=== PATIENT | female | born 1980 | race Caucasian/White ===

== ENCOUNTER 2017-04-03 07:55 | Inpatient (IN) | payer OTHER ==
[2017-04-03] MEDS ORDERED: ONDANSETRON 4 MG/2 ML VIAL IVP STA ×2 (08:25→10:09)
[2017-04-03] MEDS ORDERED: SODIUM CHLORIDE 0.9% 2,000 ML IV ONE (08:25)
--- NOTE | 2017-04-03 08:29 | ED Physician Documentation ---
PD HPI NVD - Stated complaint Stated Complaint: VOMITING - Chief complaint Chief Complaint: Abd Pain - History obtained from History obtained from: Patient, Family (Spouse) - History of Present Illness Timing - onset: Yesterday Timing - duration: Days (2) Timing - details: Still present Associated symptoms: No: Fever, Abdominal pain Contributing factors: Diabetes Similar symptoms before: Diagnosis (History of similar episodes with DKA. The last time was about one year ago.) - Additonal information Additional information: The patient is a 36-year-old insulin-dependent diabetic female who presents with 2 day history of vomiting and watery diarrhea, and complains of feeling dehydrated. She denies abdominal pain or dysuria. It is uncertain whether or not she has had fever. She reports history of similar symptoms with DKA, for which she has been hospitalized twice in the past. The last time was about 1 year ago. She uses an insulin pump. Her states that her blood sugar this morning was 188. No other family members are ill. There is been no recent travel or antibiotic therapy. Review of Systems Constitutional: reports: Fatigue Ears: denies: Tinnitus/ringing Nose: denies: Congestion Throat: denies: Sore throat Cardiac: denies: Chest pain / pressure Respiratory: denies: Dyspnea, Cough GI: reports: Nausea, Vomiting, Diarrhea. denies: Abdominal Pain : denies: Dysuria Skin: denies: Rash Musculoskeletal: denies: Back pain Neurologic: reports: Generalized weakness. denies: Focal weakness, Numbness, Headache PD PAST MEDICAL HISTORY - Past Medical History Past Medical History: Yes Endocrine/Autoimmune: Type 1 diabetes Other Past Medical History: retinal detachments - Past Surgical History Past Surgical History: Yes - Present Medications Home Medications: Ambulatory Orders Medication Instructions Recorded Confirmed Dorzolamide/Timolol Ophth Soln 2 drops OP BID 04/03/17 04/03/17 [Cosopt] Insulin Glargine [Lantus] 27 units SQ PRN PRN 04/03/17 04/03/17 Insulin Lispro [HumaLOG] 100 unit SQ DAILY 04/03/17 04/03/17 - Allergies Allergies/Adverse Reactions: Allergies Allergy/AdvReac Type Severity Reaction Status Date / Time No Known Drug Allergies Allergy Verified 04/03/17 08:03 - Living Situation Living Situation: reports: With family Living Arrangement: reports: At home - Social History Does the pt smoke?: No Smoking Status: Never smoker Does the pt drink ETOH?: No Does the pt have substance abuse?: No PD ED PE NORMAL - Vitals Vital signs reviewed: Yes (tachypneic) - General General: Alert and oriented X 3, Well developed/nourished, Other (Appears fatigued.) - HEENT HEENT: Atraumatic, PERRL, EOMI, Other (Sunken eyes, dry mucous membranes.) - Neck Neck: Supple, no meningeal sign, No adenopathy, No JVD - Cardiac Cardiac: RRR, No murmur - Respiratory Respiratory: No respiratory distress, Clear bilaterally - Abdomen Abdomen: Soft, Non tender, No organomegaly - Back Back: No CVA TTP - Derm Derm: No rash - Extremities Extremities: No edema, No calf tenderness / cord - Neuro Neuro: Alert and oriented X 3, No motor deficit, No sensory deficit PD ED PE EXPANDED - Rectal Rectal: Heme Occult Pos - QC + Results - Vitals Vitals: Vital Signs - 24 hr 04/03/17 04/03/17 04/03/17 08:02 09:53 12:13 Temperature 36.4 C L Heart Rate 66 95 100 Respiratory 28 H 12 Rate Blood Pressure 131/70 H 135/66 H O2 Saturation 100 100 99 04/03/17 04/03/17 15:21 16:42 Temperature Heart Rate 97 99 Respiratory 15 99 H Rate Blood Pressure 133/63 H 119/60 O2 Saturation 99 100 Oxygen O2 Source Room air - Labs Labs: Laboratory Tests 04/03/17 04/03/17 04/03/17 08:34 08:50 08:50 WBC 10.9 H RBC 4.37 Hgb 13.9 Hct 41.9 MCV 96.0 MCH 31.7 H MCHC 33.0 RDW 13.5 Plt Count 236 MPV 9.1 Neut # 8.7 H Lymph # 0.7 L [place] # 1.3 H Eos # 0.2 Baso # 0.0 Absolute Nucleated RBC 0.00 Nucleated RBCs 0.0 Sodium 140 Potassium 3.9 Chloride 107 Carbon Dioxide 20 L Anion Gap 13.0 BUN 29 H Creatinine 0.9 Estimated GFR (MDRD) 71 L Glucose 277 H POC Whole Bld Glucose 245 H Lactic Acid Calcium 8.9 Total Bilirubin 1.8 H AST 17 ALT 15 Alkaline Phosphatase 50 Total Protein 7.3 Albumin 4.0 Globulin 3.3 Albumin/Globulin Ratio 1.2 Lipase 18 L HCG, Quant Urine Color Urine Clarity Urine pH Ur Specific [place] Urine Protein Urine Glucose (UA) Urine Ketones Urine Occult Blood Urine Nitrite Urine Bilirubin Urine Urobilinogen Ur Leukocyte Esterase Urine RBC Urine WBC Ur Squamous Epith Cells Urine Bacteria Urine Casts Urine Mucus Ur Microscopic Review Urine Culture Comments 04/03/17 04/03/17 04/03/17 08:50 08:50 10:45 WBC RBC Hgb Hct MCV MCH MCHC RDW Plt Count MPV Neut # Lymph # [place] # Eos # Baso # Absolute Nucleated RBC Nucleated RBCs Sodium Potassium Chloride Carbon Dioxide Anion Gap BUN Creatinine Estimated GFR (MDRD) Glucose POC Whole Bld Glucose Lactic Acid 2.7 H Calcium Total Bilirubin AST ALT Alkaline Phosphatase Total Protein Albumin Globulin Albumin/Globulin Ratio Lipase HCG, Quant < 0.60 Urine Color YELLOW Urine Clarity HAZY Urine pH 5.5 Ur Specific [place] >=1.030 H Urine Protein TRACE Urine Glucose (UA) 100 H Urine Ketones TRACE Urine Occult Blood NEGATIVE Urine Nitrite NEGATIVE Urine Bilirubin NEGATIVE Urine Urobilinogen 0.2 (NORMAL) Ur Leukocyte Esterase NEGATIVE Urine RBC 0-5 Urine WBC 0-3 Ur Squamous Epith Cells MANY Squamous H Urine Bacteria Many H Urine Casts 11-25 Hyaline Casts Urine Mucus Marked Strands Ur Microscopic Review INDICATED Urine Culture Comments NOT INDICATED 04/03/17 04/03/17 13:32 15:23 WBC RBC Hgb Hct MCV MCH MCHC RDW Plt Count MPV Neut # Lymph # [place] # Eos # Baso # Absolute Nucleated RBC Nucleated RBCs Sodium Potassium Chloride Carbon Dioxide Anion Gap BUN Creatinine Estimated GFR (MDRD) Glucose POC Whole Bld Glucose 261 H 205 H Lactic Acid Calcium Total Bilirubin AST ALT Alkaline Phosphatase Total Protein Albumin Globulin Albumin/Globulin Ratio Lipase HCG, Quant Urine Color Urine Clarity Urine pH Ur Specific [place] Urine Protein Urine Glucose (UA) Urine Ketones Urine Occult Blood Urine Nitrite Urine Bilirubin Urine Urobilinogen Ur Leukocyte Esterase Urine RBC Urine WBC Ur Squamous Epith Cells Urine Bacteria Urine Casts Urine Mucus Ur Microscopic Review Urine Culture Comments PD MEDICAL DECISION MAKING - ED course Complexity details: reviewed results, re-evaluated patient, considered differential, d/w patient, d/w family, d/w marine engineering consultant ED course: The patient's presentation is significant for vomiting and diarrhea, with profound dehydration.She has insulin-dependent diabetes, and mild metabolic acidosis, with lactate level of 2.7, and serum bicarbonate 20. Her blood sugar is mildly elevated in the mid 200s. Treatment in the emergency department included administration of normal saline 4 L IV, Zofran 4 mg IV 2, and Phenergan 12.5 mg IV. On repeat examination her abdomen remains benign to palpation, however she remains extremely nauseated, and failed p.o. challenge. She had 2 episodes of dark colored watery diarrhea stools, which tested heme positive. Because of her failure to tolerate po intake after nine hours of treatment in the Emergency Dept I discussed her ongoing symptoms with Dr. Lyon, who evaluated her in the emergency department and admitted her on observation status. Departure - Departure Disposition: ED Place in Observation Clinical Impression: Dehydration, Insulin dependent diabetes mellitus, Heme positive stool Diarrhea Qualifiers: Diarrhea type: unspecified type Qualified Code(s): R19.7 - Diarrhea, unspecified Condition: Stable
[2017-04-03] MEDS ORDERED: ONDANSETRON 4 MG/2 ML VIAL ONE ×2 (08:36→10:16)
[2017-04-03 09:08] LABS: BASOPHILS % (AUTO) 0.2 %; EOSINOPHILS # (AUTO) 0.2 10^3/uL (0.0-0.7); EOSINOPHILS % (AUTO) 1.9 %; HCT - HEMATOCRIT 41.9 % (37.0-47.0); HGB - HEMOGLOBIN 13.9 g/dL (12.0-16.0); LYMPHOCYTES # (AUTO) 0.7 10^3/uL (1.5-3.5); LYMPHOCYTES % (AUTO) 6.2 %; MEAN CORPUSCULAR HEMOGLOBIN 31.7 pg (27.0-31.0); MEAN PLATELET VOLUME 9.1 fL (7.9-10.8); MONOCYTES # (AUTO) 1.3 10^3/uL (0.0-1.0); MONOCYTES % (AUTO) 11.7 %; NEUTROPHILS # (AUTO) 8.7 10^3/uL (1.5-6.6); RED BLOOD COUNT 4.37 10^6/uL (4.20-5.40); RED CELL DISTRIBUTION WIDTH 13.5 % (12.0-15.0); UNCORRECTED WHITE BLOOD COUNT 10.9 x10^3/uL; WHITE BLOOD COUNT 10.9 x10^3/uL (4.8-10.8)
[2017-04-03 09:16] LABS: ALBUMIN/GLOBULIN RATIO 1.2 (1.0-2.2); BILIRUBIN,TOTAL 1.8 mg/dL (0.2-1.0); CALCIUM 8.9 mg/dL (8.5-10.3); CREATININE 0.9 mg/dL (0.4-1.0); POTASSIUM 3.9 mmol/L (3.5-5.0); TOTAL PROTEIN 7.3 g/dL (6.7-8.2)
[2017-04-03 11:00] LABS: PH,URINE 5.5 PH (5.0-7.5)
[2017-04-03 11:04] LABS: BILIRUBIN,URINE NEGATIVE (NEGATIVE); UA w/ MICROSCOPIC CHARGE YES
[2017-04-03 11:09] LABS: WBC,URINE 0-3 /HPF (0-5)
[2017-04-03 11:10] LABS: UR CULTURE IF IND NOT INDICATED
[2017-04-03] MEDS ORDERED: SODIUM CHLORIDE 0.9% 1,000 ML IV ONE ×2 (12:06→13:39)
[2017-04-03] MEDS ORDERED: PROMETHAZINE INJ 12.5 MG in SODIUM CHLORIDE 0.9% 50 ML IV STA (12:08)
[2017-04-03] MEDS ORDERED: PROMETHAZINE 25 MG/1 ML VIAL ONE (12:12)
[2017-04-03] MEDS ORDERED: SODIUM CHLORIDE FLUSH 0.9% 10 ML SYRINGE IVP PRN (17:53)
[2017-04-03] MEDS ORDERED: ONDANSETRON ODT 4 MG TABLET TL PRN (17:53)
[2017-04-03] MEDS ORDERED: PROCHLORPERAZINE 10 MG/2 ML VIAL IVP PRN (17:53)
[2017-04-03] MEDS ORDERED: ONDANSETRON 4 MG/2 ML VIAL IVP PRN (17:53)
[2017-04-03 18:17] LABS: VBG BASE EXCESS -7.7 mmol/L (-2 - +2); VBG OXYGEN SATURATION 44.1 % (60-80); VBG PH 7.27 (7.31-7.41)
[2017-04-03] MEDS ORDERED: INSULIN GLARGINE 27 UNIT SQ PRN (19:47)
--- NOTE | 2017-04-03 20:01 | HISTORY & PHYSICAL EXAMINATION ---
DATE OF ADMISSION: 04/03/2017 PRIMARY CARE PROVIDER: [facility]. ADMITTING PROVIDER: Shila Lyon MD. CHIEF COMPLAINT: Nonstop nausea and dry heaves, as well as diarrhea that was abrupt in onset. HISTORY OF PRESENT ILLNESS: She is a type 1 diabetic since the age of 8 and has had 3 admissions for diabetes, dehydration. Two of them have been attributed to complete pump failure, patient wears an in sulin pump. Most recent admission was 04/2016. She is not felt to have gastroparesis. Only complicati on of diabetes is retinopathy and a buckling of her left retina. She does not have neuropathy or neph ropathy as far she knows. She has been in her usual state of health. Nothing new has been going on. Sugars have been stable. Jacki jacobs had an abrupt onset of diarrhea as she was getting ready to go to the eye doctor yesterday. Between then and now it has become normal stool to then frequent liquid stools to the point that she is now incontinent. She has been incontinent twice with me in the emergency room. The stool is brown and liq uid. There is no blood. She denies fever. She gets really cold and starts to shake after each bowel m ovement now. She denies chills. She ate a salad the Friday before at the [employer]. No one else is sick. She has had no recent travel. She has no animals at home. In addition to the diarrhea, she has been having dry heaves. No true emesis. She had one episode of emesis in the middle the night, but n one since. She denies abdominal pain. She has no history of nonsteroidal use or ulcers. PAST MEDICAL HISTORY: 1. Type 1 diabetes mellitus, controlled, with complications of retinopathy. 2. G2, P1-0-0-1, 1 . ALLERGIES: NO KNOWN DRUG ALLERGIES. MEDICATIONS: 1. Insulin pump. 2. She takes Humalog. 3. Lantus 27 units only when her pump comes off. 4. She does dorzolamide and Timolol Ophthalmic drops for each eye. SOCIAL HISTORY: From [place]. to a [employer] [place]. She never smoked, rarely drinks. This is her f irst marriage. This is his second. They have one child together and take care of 2 of his daughters. She is a qopq-or-pods mom. FAMILY HISTORY: Both her mom and dad are completely healthy. Two brothers are healthy. Her one child is healthy. REVIEW OF SYSTEMS: GENERAL: She regards herself as healthy with no constitutional complaints of fevers, chills, unexpect ed weight loss. ENT: Severe retinopathy problems. Denies problems with swallowing, dentition. No hearing problems. De nies allergies. PULMONARY: Denies coughing, wheezing, bronchitis, asthma history. CARDIAC: Denies valvular heart disease, palpitations, atrial fibrillation. Denies edema, orthopnea, c hest pain. GASTROINTESTINAL: Positive as above. GENITOURINARY: Denies urgency, frequency, dysuria, hematuria, or flank pain. JOINTS: Denies any joint pain, trauma, swelling. SKIN: No new lesions, no rashes. PSYCHIATRIC: Denies depression, suicidal ideation or hallucinations. SUPERVISOR TYPE PHOTOGRAPHY: Denies headache, syncope or seizures. No focal deficits. PHYSICAL EXAMINATION: VITAL SIGNS: On examination, she is seen in the emergency room with her at the bedside. [place] rature is 37.6, pulse 91, blood pressure 131/69, respirations 16 and she is 100% on room air. GENERAL: She is completely miserable young white female who is almost moaning with her nausea, and dowling s had 2 episodes of sudden explosive diarrhea during my exam. She has had to get up twice, wash herse lf off and put on clean scrubs. After each bowel movement she starts having shakes and rigors and get s so cold they have to put warm blankets on her. HEENT: On head and neck exam, pupils are irregular but reactive. Sclerae nonicteric. In spite of lite rs in the ER, oral mucosa is quite dry and lips are cracked. NECK: Supple with shotty adenopathy, no goiter or bruits. LUNGS: Clear to auscultation and percussion. CARDIOVASCULAR: PMI is normally placed with a regular rate and rhythm. No murmurs, rubs, or gallops. ABDOMEN: Soft, nontender. No organomegaly. Normal bowel sounds. EXTREMITIES: Warm without clubbing, cyanosis, or edema. In spite of her rigors there was no diaphores is and no clamminess. NEUROLOGIC: I watch her get up out of the bed, transfer herself to sitting position, stand. No focal deficits. She denies neuropathy. LABS: Sodium 140, potassium 3.9, carbon dioxide 20, anion gap 13, BUN 29. Random glucose 277. Lactic acid 2.7. Total bilirubin 1.8. Liver enzymes normal. Lipase 18. HCG quantitative is less than 0.6. ite cell count is 10.9, hemoglobin 13.9, hematocrit 41.9, platelets 236. Venous blood gas is 7.2. Bic arbonate 18.8 and low. Base excess -7.7. Urinalysis is trace ketones. Many squamous cells, many bacte david. ASSESSMENT/PLAN: 1. Dehydration from severe nausea and diarrhea. Plan is to be placed in observation overnight with ag gressive IV fluid hydration, and antiemetics. Send stool for culture. Suspect she may have gastroente ritis. 2. Lactic acidosis. The patient is a diabetic, but without ketones. She is not on metformin. Usually I am seeing contraction alkalosis with dehydration. Urinalysis negative. Lung exam is negative. She i s not taking any new medications that would induce acidosis. We will hydrate and continue to monitor. Make sure she is not getting an early infection, especially with a mildly elevated white cell count. 3. FULL CODE. 3. Deep venous thrombosis prophylaxis will be MONA faustin. JOB #: [id number] EXT JOB #:[id number]
[2017-04-03] MEDS: SODIUM CHLORIDE 0.9% 1,000 ML IV SCH (20:58)
[2017-04-03] MEDS: SODIUM CHLORIDE FLUSH 0.9% 10 ML SYRINGE IVP SCH (20:59)
[2017-04-03] MEDS: DORZOLAMIDE/TIMOLOL OPHTH DROPS EACHEYE SCH (22:39)
[2017-04-03] MEDS: INSULIN ASPART 300 UNIT/3 ML PEN SUBQ SCH (22:40)
[2017-04-04 04:41] LABS: BASOPHILS % (AUTO) 0.2 %; EOSINOPHILS # (AUTO) 0.1 10^3/uL (0.0-0.7); EOSINOPHILS % (AUTO) 0.7 %; HCT - HEMATOCRIT 32.1 % (37.0-47.0); HGB - HEMOGLOBIN 10.7 g/dL (12.0-16.0); LYMPHOCYTES % (AUTO) 21.9 %; MEAN CORPUSCULAR HEMOGLOBIN 32.3 pg (27.0-31.0); MEAN CORPUSCULAR HGB CONC 33.5 g/dL (32.0-36.0); MEAN CORPUSCULAR VOLUME 96.5 fL (81.0-99.0); MEAN PLATELET VOLUME 8.9 fL (7.9-10.8); MONOCYTES # (AUTO) 1.2 10^3/uL (0.0-1.0); NEUTROPHILS # (AUTO) 5.9 10^3/uL (1.5-6.6); NEUTROPHILS % (AUTO) 64.2 %; RED BLOOD COUNT 3.33 10^6/uL (4.20-5.40); RED CELL DISTRIBUTION WIDTH 13.7 % (12.0-15.0); UNCORRECTED WHITE BLOOD COUNT 9.1 x10^3/uL; WHITE BLOOD COUNT 9.1 x10^3/uL (4.8-10.8)
[2017-04-04 04:47] LABS: CALCIUM 7.1 mg/dL (8.5-10.3); CREATININE 0.7 mg/dL (0.4-1.0); POTASSIUM 3.3 mmol/L (3.5-5.0)
[2017-04-04] MEDS: SODIUM CHLORIDE 0.9% 1,000 ML IV SCH ×2 (06:13→17:45)
[2017-04-04] MEDS: SODIUM CHLORIDE FLUSH 0.9% 10 ML SYRINGE IVP SCH ×2 (06:14→14:22)
[2017-04-04] MEDS: INSULIN ASPART 300 UNIT/3 ML PEN SUBQ SCH ×4 (08:12→22:18)
[2017-04-04] MEDS: INSULIN GLARGINE 300 UNIT/3 ML PEN SUBQ SCH (08:14)
[2017-04-04] MEDS: POLYETHYLENE GLYCOL 3350 17 GM PACKET PO SCH (08:15)
[2017-04-04] MEDS: DORZOLAMIDE/TIMOLOL OPHTH DROPS EACHEYE SCH ×2 (08:15→22:17)
[2017-04-04] MEDS ORDERED: INSULIN ASPART 300 UNIT/3 ML PEN SUBQ ONE (08:30)
[2017-04-04] MEDS: INSULIN REGULAR HUMAN 100 UNIT in SODIUM CHLORIDE 0.9% 100ML 99 ML IV SCH (10:00)
[2017-04-04 11:27] LABS: CALCIUM 7.5 mg/dL (8.5-10.3); CREATININE 0.7 mg/dL (0.4-1.0); POTASSIUM 2.8 mmol/L (3.5-5.0)
[2017-04-04] MEDS: POTASSIUM CHLORIDE 20 MEQ TABLET PO SCH ×2 (12:08→16:51)
--- NOTE | 2017-04-04 13:38 | PROVIDER PROGRESS NOTE ---
Subjective - Prog Note Date Prog Note Date: 04/04/17 Prog Note Time: 13:35 - Subjective Pt reports feeling: No change Subjective: Overnight she has tolerated IV fluid hydration. However she continues to have nausea. Does want to eat. She is continued to have frequent loose stools. She is C. difficile negative, Campylobacter negative. The stool is not bloody. This morning her lactic acid is even higher and she is hypokalemic. She is miserable. Current Medications - Current Medications Current Medications: Active Medications Acetaminophen (Tylenol) 650 mg PO Q4HR PRN PRN Reason: Pain 1 to 4 Dorzolamide/Timolol (Cosopt) 2 drops EACHEYE BID [facility] Last Admin: 04/04/17 08:15 Dose: 1 drp Sodium Chloride (Normal Saline 0.9%) 1,000 mls @ 100 mls/hr IV .Q10H [facility] Last Admin: 04/04/17 06:13 Dose: 100 mls/hr Insulin Human Regular 100 unit (/ Sodium Chloride) 100 mls @ 12 mls/hr IV .Q8H20M [facility] PRN Reason: Protocol Last Titration: 04/04/17 12:01 Dose: 2 unit/hr Insulin Aspart (Novolog) 1 - 9 unit SUBQ 0800,1200,1700,2100 [facility] PRN Reason: Protocol Last Admin: 04/04/17 08:12 Dose: 25 unit Insulin Glargine (Lantus Solostar) 27 unit SUBQ DAILY [facility] Last Admin: 04/04/17 08:14 Dose: 27 unit Ondansetron HCl (Zofran Odt) 4 mg TL Q6HR PRN PRN Reason: Nausea / Vomiting Ondansetron HCl (Zofran Inj) 4 mg IVP Q6HR PRN PRN Reason: Nausea / Vomiting Last Admin: 04/04/17 06:13 Dose: 4 mg Polyethylene Glycol (Miralax) 17 gm PO DAILY [facility] Last Admin: 04/04/17 08:15 Dose: Not Given Potassium Chloride (K-Dur) 40 meq PO Q4H [facility] PRN Reason: Protocol Stop: 04/04/17 16:01 Last Admin: 04/04/17 12:08 Dose: 40 meq Prochlorperazine Edisylate (Compazine Inj) 10 mg IVP Q6HR PRN PRN Reason: Nausea / Vomiting Last Admin: 04/04/17 07:00 Dose: 10 mg Sodium Chloride (Normal Saline Flush 0.9%) 10 ml IVP PRN PRN PRN Reason: NEEDED PER PROVIDER ORDERS Sodium Chloride (Normal Saline Flush 0.9%) 10 ml IVP Q8HR [facility] Last Admin: 04/04/17 06:14 Dose: Not Given Dorzolamide/Timolol Ophth Soln [Cosopt] 1 drops OP BID 04/03/17 Insulin Glargine [Lantus] 27 units SQ PRN PRN 04/03/17 Insulin Lispro [HumaLOG] 100 unit SQ DAILY 04/03/17 Objective - Vital Signs/Intake & Output Reviewed Vital Signs: Yes Vital Signs: Vital Signs Temp Pulse Resp BP BP Pulse Ox 04/04/17 13:00 85 20 95/49 L 96 04/04/17 11:00 87 11 L 96/57 L 98 04/04/17 10:09 90 11 L 104/62 98 04/04/17 10:00 99.3 C H 89 12 104/62 97 Intake & Output: Intake & Output 04/01/17 04/02/17 04/03/17 04/04/17 23:59 23:59 23:59 23:59 Intake Total 305 Balance 305 - Objective General Appearance: positive: Mild distress, Lethargic, Other (Eyes at half mast , slow speech, and very exhausted.) Eyes Bilateral: positive: PERRL, EOMI ENT: positive: Pharynx nml Neck: positive: No JVD. negative: Stiff neck, Carotid bruit Respiratory: positive: Chest non-tender. negative: Wheezes, Rales, Rhonchi Cardiovascular: positive: Regular rate & rhythm. negative: Gallop/S4, Friction rub Abdomen: positive: No organomegaly, Nml bowel sounds, Tenderness (mild and generalize). negative: Guarding, Rebound Skin: positive: Warm, Dry Extremities: positive: Full ROM, No pedal edema Neurologic/Psychiatric: positive: Oriented x3, CN's nml (2-12), Motor nml - Lab Results Fish Bones: 04/04/17 04:15 04/04/17 13:35 Other Labs: Lab Results x24hrs 04/04/17 04/04/17 04/04/17 Range/Units 13:29 13:23 11:42 Sodium (135-145) mmol/L Potassium (3.5-5.0) mmol/L Chloride (101-111) mmol/L Carbon Dioxide (21-32) mmol/L Anion Gap (6-13) BUN (6-20) mg/dL Creatinine (0.4-1.0) mg/dL Estimated GFR (MDRD) (>89) Glucose (70-100) mg/dL POC Whole Bld Glucose 35 L* 37 L* 102 H (70 - 100) mg/dL Calcium (8.5-10.3) mg/dL Magnesium (1.7-2.8) mg/dL 04/04/17 04/04/17 Range/Units 10:45 10:45 Sodium 140 (135-145) mmol/L Potassium 2.8 L (3.5-5.0) mmol/L Chloride 115 H (101-111) mmol/L Carbon Dioxide 18 L (21-32) mmol/L Anion Gap 7.0 (6-13) BUN 15 (6-20) mg/dL Creatinine 0.7 (0.4-1.0) mg/dL Estimated GFR (MDRD) 95 (>89) Glucose 212 H (70-100) mg/dL POC Whole Bld Glucose (70 - 100) mg/dL Calcium 7.5 L (8.5-10.3) mg/dL Magnesium 1.8 (1.7-2.8) mg/dL Laboratory Tests 04/03/17 04/04/17 04/04/17 08:50 04:15 07:51 Glucose 340 H POC Whole Bld Glucose 408 H Lactic Acid 2.7 H Assessment/Plan - Problem List (1) Metabolic acidosis, normal anion gap (NAG) Impression: hypokalemia and hyperchloremia from diarrhea. this in turn is worsening her DM control. Lactic acid is now over 7. She has worsened overnight. Plan: Transfer to ICU Electrolyte supplementation Change IV fluid to normal saline with potassium Controlled glucose Control diarrhea (2) Dehydration, moderate Impression: see #1 from diarrhea. campy neg salmonella and shigella pending. not bloody, acute expect this to be self limiting viral illness? (3) Type 1 diabetes, uncontrolled, with nonproliferative retinopathy with macular edema Impression: transfer to ICU start insulin drip with protocol which monitors hourly glucose, supplements electrolytes.
[2017-04-04 14:33] LABS: CALCIUM 7.8 mg/dL (8.5-10.3); CREATININE 0.5 mg/dL (0.4-1.0)
[2017-04-04] MEDS ORDERED: DEXTROSE GEL 37.5 GM TUBE PO ONE (14:56)
[2017-04-04 15:15] LABS: CALCIUM, IONIZED 1.15 mmol/L (1.15-1.33); VBG PH 7.243 (7.31-7.41)
[2017-04-04 15:23] LABS: HEMOGLOBIN A1C 1.11 g/dL
[2017-04-04] MEDS: DIPHENOX/ATROPINE 2.5/0.025 MG TABLET PO PRN ×2 (17:30→22:23)
[2017-04-04] MEDS: CHOLESTYRAMINE 4 GM PACKET PO SCH (22:16)
[2017-04-04] MEDS: ACETAMINOPHEN 325 MG TABLET PO PRN (22:22)
[2017-04-05] MEDS: INSULIN REGULAR HUMAN 100 UNIT in SODIUM CHLORIDE 0.9% 100ML 99 ML IV SCH ×2 (00:25→03:45)
[2017-04-05] MEDS: SODIUM CHLORIDE FLUSH 0.9% 10 ML SYRINGE IVP SCH ×3 (00:25→11:36)
[2017-04-05] MEDS: SODIUM CHLORIDE 0.9% 1,000 ML IV SCH (03:44)
[2017-04-05] MEDS: ACETAMINOPHEN 325 MG TABLET PO PRN (06:16)
[2017-04-05 06:28] LABS: BASOPHILS % (AUTO) 0.4 %; EOSINOPHILS # (AUTO) 0.2 10^3/uL (0.0-0.7); EOSINOPHILS % (AUTO) 2.3 %; HCT - HEMATOCRIT 31.6 % (37.0-47.0); HGB - HEMOGLOBIN 10.5 g/dL (12.0-16.0); MEAN CORPUSCULAR HEMOGLOBIN 31.8 pg (27.0-31.0); MEAN CORPUSCULAR HGB CONC 33.2 g/dL (32.0-36.0); MEAN CORPUSCULAR VOLUME 95.8 fL (81.0-99.0); MEAN PLATELET VOLUME 8.6 fL (7.9-10.8); MONOCYTES # (AUTO) 1.2 10^3/uL (0.0-1.0); MONOCYTES % (AUTO) 13.9 %; NEUTROPHILS # (AUTO) 5.1 10^3/uL (1.5-6.6); NEUTROPHILS % (AUTO) 59.4 %; RED BLOOD COUNT 3.29 10^6/uL (4.20-5.40); RED CELL DISTRIBUTION WIDTH 13.5 % (12.0-15.0); UNCORRECTED WHITE BLOOD COUNT 8.5 x10^3/uL; WHITE BLOOD COUNT 8.5 x10^3/uL (4.8-10.8)
[2017-04-05 06:39] LABS: ALBUMIN/GLOBULIN RATIO 1.1 (1.0-2.2); BILIRUBIN,TOTAL 0.6 mg/dL (0.2-1.0); CALCIUM 7.4 mg/dL (8.5-10.3); CREATININE 0.5 mg/dL (0.4-1.0); POTASSIUM 3.3 mmol/L (3.5-5.0); TOTAL PROTEIN 5.2 g/dL (6.7-8.2)
[2017-04-05] MEDS ORDERED: POTASSIUM CHLORIDE 20 MEQ TABLET PO SCH (06:47)
[2017-04-05] MEDS ORDERED: NS W/40 MEQ KCL 1,000 ML IV SCH (09:00)
[2017-04-05] MEDS: INSULIN GLARGINE 300 UNIT/3 ML PEN SUBQ SCH (09:41)
[2017-04-05] MEDS: DORZOLAMIDE/TIMOLOL OPHTH DROPS EACHEYE SCH (09:44)
[2017-04-05] MEDS: CHOLESTYRAMINE 4 GM PACKET PO SCH (09:44)
[2017-04-05] MEDS: POLYETHYLENE GLYCOL 3350 17 GM PACKET PO SCH (11:35)
[2017-04-05] MEDS: INSULIN ASPART 300 UNIT/3 ML PEN SUBQ SCH ×2 (11:35→11:36)
--- NOTE | 2017-04-05 15:01 | Discharge Plan ---
Discharge Plan Disposition: Home, Self Care Condition: Good Prescriptions: Ondansetron Odt [Zofran Odt] 4 mg TL Q6HR PRN #10 tablet PRN Reason: Nausea / Vomiting Diet: Regular Activity Restrictions: Activity as Tolerated Additional Instructions or Follow Up instructions: You were admitted because of severe dehydration from nausea and diarrhea. We think that you may have had a viral gastroenteritis causing the severe diarrhea and nausea. While you were not in DKA, you were with lactic acidosis, low potassium, and dehydrated. He needed an insulin drip temporarily. I would like you to increase your protein intake by eating some things like string cheese, small pieces of shredded chicken, boiled egg. This will allow your sugar spiked to level out and allow your insulin to be more effective. Do not skip meals. We are sending you home with a small amount of antinausea pills. They do not have to be swallowed and can be put underneath your tongue and will be absorbed. Please make sure you follow-up with your clinical associate. That is Dr. Haider Voss. You also see his nurse practitioner and you could follow up with him as well. We will make sure they get a copy of this discharge plan. No Smoking: If you smoke, Please STOP! Call for help. Follow-up with: Haider Voss MD [Physician No Access] -
[2017-04-05 15:50] VITALS: BP 115/68
--- NOTE | 2017-04-07 09:00 | DISCHARGE SUMMARY ---
DATE OF ADMISSION: 04/04/2017 DATE OF DISCHARGE: 04/05/2017 PRIMARY CARE PROVIDER: [facility]. TORTS LAW PROFESSOR: Haider Voss MD, at [facility]. DISCHARGE DIAGNOSES 1. Dehydration. 2. Metabolic acidosis, normal anion gap. 3. Hypokalemia. 4. Diarrhea. 5. Type 1 diabetes mellitus, uncontrolled with nonproliferative retinopathy with macular edema. DISCHARGE MEDICATIONS 1. Insulin pump with NovoLog to start tomorrow morning at 9 a.m. 2. Lantus 27 units subcutaneous q.a.m. when she is not on her pump. 3. Zofran oral disintegrating tablets 4 mg every 6 hours as needed for nausea and vomiting. HISTORY: She is a 36-year-old white female who was diagnosed with type 1 diabetes mellitus at the age of 8. Complications include microalbuminuria as well as severe retinopathy. She is blind in one eye. She has had 3 admissions for DKA, the most recent one being at [facility] with the [place] in [place] 2015. She states she is compliant with her medications. There has been no unusual illnesses. N o recent travel. The kids are fine; she has 3 young ones at home. She had eaten at the salad bar at [facility]. No one else is sick. That was on Friday night. Starting on Friday afternoon, she dowling d an abrupt onset of diarrhea. She went to the doctor's office. Diarrhea was nonstop and was liquid b rown, sometimes greenish stool. Nausea ensued. While she was not having emesis, she was having dry he aves and just did not want to eat or drink anything. She finally got so lightheaded and miserable she came to the emergency room. After being in the emergency room all day long, she was hydrated aggress ively but had no real response to normal saline. She was not in diabetic ketoacidosis. Diarrhea was c ontinuous in the emergency room, and she had 2 episodes of incontinence because of its ferocity. She had no fever, no chills. No blood in the stool. After being triaged in the emergency room and aggressively hydrated and not responding, the patient w as then placed in observation. She was given IV fluids overnight, antiemetics, and her hypokalemia wa s supplemented. After an overnight stay, the patient continued to be with dry heaves, miserable, unable to eat or dri nk anything and sugar was now elevated. It was close to 400. As such, the patient was placed in ICU f or an insulin drip and again continued with aggressive IV hydration. She was felt to have metabolic a cidosis, normal anion gap of hypokalemia from diarrhea. This in turn caused her type 1 diabetes to be uncontrolled. It took 2 days of hydration and antiemetics, and control of her sugars, before the pat ient finally became able enough to have some crackers, soups, and keep everything down. While she was wiped out and tired, she really wanted to go home. We talked about her diet. She kept on emphasizing soups and chicken noodle soup. I gently asked her to please increase her protein intake with like st ring cheese or even small bites of shredded chicken to make sure she had some protein in her stomach. She is already seeing Haider Voss at [facility]. She says that she has had s ubsequent visits with his nurse practitioner, and she says she is due to see him in the next month. I asked her to please make sure she makes a followup visit with him and let him know about this admiss ion. During her stay, stool was analyzed and C difficile was negative. Campylobacter assay was negative. N o Shiga toxin 1 or 2 was detected. Salmonella is pending at the time of discharge. During her stay, she did have hypokalemia which required supplementation. Glucose on the day of disch bibi was 127 right before she walked out the door, and fasting was 95. PHYSICAL EXAMINATION VITAL SIGNS: She was 36.8, pulse 80, blood pressure 115/68, respirations 16, and 100% on room air. GENERAL: She was a quiet, shy-appearing young white female who looks her stated age. HEENT: She had no facial asymmetry, but eyes were already starting to show the glazed appearance of s jemma with retinopathy and long-term diabetes. NECK: Supple. LUNGS: Clear. HEART: She had a regular rate and rhythm. ABDOMEN: Soft, nontender. Normal bowel sounds. EXTREMITIES: Without edema. She was worried about getting edema. Apparently with her previous DKA adm ission, she would get so much hydration and fluid resuscitation that she would be edematous for days. Right now, there is no edema. She is discharged in stable condition. I asked her to please also try and get a primary care provider [facility] [employer] [facility]. Greater than 30 minutes was spent in coordinating discharge. JOB #: [id number] EXT JOB #:[id number]
== END 2017-04-05 16:10 | disposition home or self-care (01) | DRG 641 ==
LOC: ED 07:55 → OBS 17:53 → INTOOBSV 04-04 08:07 → OBSVTOIN 04-04 08:07 → ICU 04-04 09:43 → MS2 04-05 10:48
PROVIDERS: ADMIT Specialist; ATTEND Specialist
DX: E87.2 Acidosis (principal); E86.0 Dehydration; E87.6 Hypokalemia; R19.7 Diarrhea, unspecified; E10.65 Type 1 diabetes mellitus with hyperglycemia; E10.3213 Type 1 diabetes mellitus with mild nonproliferative diabetic retinopathy with macular edema, bilateral; E87.8 Other disorders of electrolyte and fluid balance, not elsewhere classified; Z96.41 Presence of insulin pump (external) (internal)
CPT/HCPCS: 36415; 80048; 80053; 81001; 81003; 82009; 82040; 82330; 82803; 83036; 83605; 83690; 83735; 84702; 85025; 87045; 87046; 87077; 87086; 87493; 96361; 96365; 96375; 96376; 99284; 99285

== ENCOUNTER 2017-10-26 14:19 | Emergency (ER) | payer OTHER ==
--- NOTE | 2017-10-26 14:34 | ED Physician Documentation ---
PD HPI FEMALE - Stated complaint Stated Complaint: 19 WKS/FEM - History obtained from History obtained from: Patient - History of Present Illness Timing - onset: How many days ago (2-3) Timing - details: Gradual onset, Still present, Waxing and waning Associated symptoms: Dysuria, Urinary frequency. No: Fever, Back pain, Pelvic pain, Vaginal bleeding, Vaginal discharge, Genital sore/lesion Contributing factors: . No: Exposed to STD Similar symptoms before: Diagnosis (UTI) Recently seen: Not recently seen Review of Systems Constitutional: reports: Myalgias, Fatigue. denies: Fever, Chills Nose: denies: Rhinorrhea / runny nose, Congestion Throat: denies: Sore throat Respiratory: denies: Dyspnea, Cough GI: reports: Nausea. 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: Detached retina repair - Present Medications Home Medications: Ambulatory Orders Medication Instructions Recorded Confirmed Dorzolamide/Timolol Ophth Soln 1 drops OP BID 04/03/17 04/03/17 [Cosopt] Insulin Glargine [Lantus] 27 units SQ PRN PRN 04/03/17 04/03/17 Insulin Lispro [Humalog] 100 unit SQ DAILY 04/03/17 04/03/17 Ondansetron Odt [Zofran Odt] 4 mg TL Q6HR PRN #10 tablet 04/05/17 Cephalexin [Keflex] 500 mg PO TID #18 capsule 10/26/17 Pyridoxine HCl [Vitamin B-6] 25 mg PO BID #60 tablet 10/26/17 - Allergies Allergies/Adverse Reactions: Allergies Allergy/AdvReac Type Severity Reaction Status Date / Time No Known Drug Allergies Allergy Verified 04/03/17 08:03 - Social History Does the pt smoke?: No Smoking Status: Never smoker Does the pt drink ETOH?: No Does the pt have substance abuse?: No PD ED PE NORMAL - Vitals Vital signs reviewed: Yes - General General: Alert and oriented X 3, No acute distress, Well developed/nourished - HEENT HEENT: Moist mucous membranes, Pharynx benign - Neck Neck: Supple, no meningeal sign, No adenopathy - Cardiac Cardiac: RRR, No murmur - Respiratory Respiratory: Clear bilaterally - Abdomen Abdomen: Normal bowel sounds, Soft, Non distended, No organomegaly - Back Back: No CVA TTP - Derm Derm: Normal color, Warm and dry - Extremities Extremities: No deformity, Normal ROM s pain, No edema, No calf tenderness / cord - Neuro Neuro: Alert and oriented X 3, No motor deficit, Normal speech Results - Vitals Vitals: Vital Signs - 24 hr 10/26/17 14:43 Temperature 36.0 C L Heart Rate 82 Respiratory 16 Rate Blood Pressure 118/71 O2 Saturation 100 Oxygen O2 Source Room air - Labs Labs: Laboratory Tests 10/26/17 14:50 Urine Color YELLOW Urine Clarity CLEAR Urine pH 6.0 Ur Specific [place] 1.020 Urine Protein NEGATIVE Urine Glucose (UA) >=1000 H Urine Ketones TRACE Urine Occult Blood NEGATIVE Urine Nitrite NEGATIVE Urine Bilirubin NEGATIVE Urine Urobilinogen 1 (NORMAL) Ur Leukocyte Esterase TRACE H Urine RBC 0-5 Urine WBC 6-10 H Ur Squamous Epith Cells MANY Squamous H Urine Bacteria Rare Ur Microscopic Review INDICATED Urine Culture Comments NOT INDICATED PD MEDICAL DECISION MAKING - ED course Complexity details: reviewed results (She does have some bacteria and leukocytes on her urine test which coupled with her symptoms can be indicative of urinary tract infection. We will treated with cephalexin 3 times a day for 5 days. She has been having generally a lot of nausea and uses Zofran for that and so I offered vitamin B6 twice daily to use in conjunction with it. She should have small frequent fluids. Bedside ultrasound did show normal intrauterine with good heart rate.), considered differential, d/w patient Departure - Departure Disposition: 01 Home, Self Care Clinical Impression: Urinary tract infection Qualifiers: Urinary tract infection type: acute cystitis Hematuria presence: without hematuria Qualified Code(s): N30.00 - Acute cystitis without hematuria Qualifiers: Weeks of gestation: 19 weeks Qualified Code(s): Z3A.19 - 19 weeks gestation of Condition: Stable Record reviewed to determine appropriate education?: Yes Instructions: ED UTI Cystitis Female Follow-Up: [facility]ar[facility] [Provider Group] Prescriptions: Cephalexin [Keflex] 500 mg PO TID #18 capsule Pyridoxine HCl [Vitamin B-6] 25 mg PO BID #60 tablet Comments: Your urine test is consistent with urinary infection that goes along with her symptoms. We will treated with Keflex 3 times a day for 6 days. Regarding your nausea overall, he could add vitamin B6 twice daily regularly and still use your nausea medicine when needed. Hopefully he will need it less often. Small frequent fluids and stay well-hydrated. 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
[2017-10-26 14:59] LABS: BILIRUBIN,URINE NEGATIVE (NEGATIVE); GLUCOSE, URINE (UA) >=1000 mg/dL (NEGATIVE); KETONES,URINE (UA) TRACE mg/dL (NEGATIVE); LEUKOCYTE ESTERASE, URINE TRACE (NEGATIVE); NITRITE,URINE NEGATIVE (NEGATIVE); OCCULT BLOOD,URINE NEGATIVE (NEGATIVE); PROTEIN,URINE NEGATIVE (NEGATIVE); UROBILINOGEN,URINE 1 (NORMAL) E.U./dL (NORMAL)
[2017-10-26 15:02] LABS: CLARITY,URINE CLEAR (CLEAR)
[2017-10-26 15:18] LABS: BACTERIA,URINE Rare /HPF (None Seen); RBC,URINE 0-5 /HPF (0-5); SQUAMOUS EPITHELIAL CELL,UR MANY Squamous (<= Few)
[2017-10-26] MEDS ORDERED: cephALEXin 250 MG CAPSULE PO STA (15:19)
[2017-10-26 15:40] VITALS: BP 115/67
== END 2017-10-26 15:40 | disposition home or self-care (01) ==
LOC: ED 14:19
DX: O23.12 Infections of bladder in pregnancy, second trimester (principal); N30.00 Acute cystitis without hematuria; O24.012 Pre-existing type 1 diabetes mellitus, in pregnancy, second trimester; E10.9 Type 1 diabetes mellitus without complications; Z3A.19 19 weeks gestation of pregnancy; Z79.4 Long term (current) use of insulin
CPT/HCPCS: 81001; 99283; A9270; 81003; 87086

== ENCOUNTER 2018-09-21 12:35 | Inpatient (IN) | payer OTHER, MEDICAID ==
[2018-09-21] MEDS ORDERED: ONDANSETRON 4 MG/2 ML VIAL IVP STA (12:53)
[2018-09-21] MEDS ORDERED: SODIUM CHLORIDE 0.9% 1,000 ML IV ONE ×4 (12:53→19:40)
[2018-09-21] MEDS ORDERED: INSULIN REGULAR HUMAN 100 UNIT/1 ML 10 ML MDV IVP STA (12:54)
--- NOTE | 2018-09-21 13:04 | ED Physician Documentation ---
PD HPI NVD - Stated complaint Stated Complaint: WEAKNESS/DEHYDRATED - History obtained from History obtained from: Patient, Family () - History of Present Illness Timing - onset: How many days ago (She has had elevated sugars for the last 2-3 days in the 200-400 range. She is typically in good control. She had not had any illness fevers cough or cold. The only change was a change in her insulin pump infusion site so they are considering whether in retrospect it was crimped and not infusing properly. Otherwise no obvious infectious cause. No change in diet. No change in activity. She has had similar episodes with diagnosis of DKA typically related to infectious process about once a year or less.) Timing - duration: Days (2-3 days of blood sugars running high and then onset of nausea vomiting and weakness today.) Timing - details: Gradual onset, Still present (worsening) Associated symptoms: Loss of appetite. No: Fever, Abdominal pain, Chest pain, Near syncope / syncope, Weight loss Contributing factors: No: Sick contact, Bad food Improved by: No: Vomiting Worsened by: Eating Similar symptoms before: Diagnosis (DKA infrequent (once per year or less)) Recently seen: Not recently seen Review of Systems Constitutional: denies: Fever Nose: denies: Rhinorrhea / runny nose, Congestion Throat: denies: Sore throat Respiratory: denies: Cough GI: reports: Nausea, Vomiting (today). denies: Constipation, Diarrhea : reports: Irregular menses (8 months post with irregular periods and had not had one for couple months.). denies: Dysuria Skin: denies: Rash, Lesions Musculoskeletal: denies: Neck pain, Back pain Neurologic: reports: Generalized weakness. 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: Detached retina repair - Present Medications Home Medications: Ambulatory Orders Medication Instructions Recorded Confirmed Dorzolamide/Timolol Ophth Soln 1 drops OP BID 04/03/17 09/21/18 [Cosopt] Insulin Glargine [Lantus] 27 units SQ PRN PRN 04/03/17 09/21/18 Insulin Lispro [Humalog] 100 unit SQ DAILY 04/03/17 09/21/18 Ondansetron Odt [Zofran Odt] 4 mg TL Q6HR PRN #10 tablet 04/05/17 09/21/18 - Allergies Allergies/Adverse Reactions: Allergies Allergy/AdvReac Type Severity Reaction Status Date / Time No Known Drug Allergies Allergy Verified 09/21/18 13:27 - Social History Does the pt smoke?: No Smoking Status: Never smoker Does the pt drink ETOH?: No Does the pt have substance abuse?: No PD ED PE NORMAL - Vitals Vital signs reviewed: Yes - General General: Well developed/nourished, Other (pale and actively vomiting) - HEENT HEENT: Ears normal, Pharynx benign. No: Moist mucous membranes - Neck Neck: Supple, no meningeal sign, No adenopathy - Cardiac Cardiac: RRR (tachycardic), No murmur - Respiratory Respiratory: Clear bilaterally - Abdomen Abdomen: Normal bowel sounds, Soft, Non distended, No organomegaly - Female Female : Deferred - Rectal Rectal: Deferred - Back Back: No CVA TTP - Derm Derm: No: Normal color (pallor) - Extremities Extremities: Normal ROM s pain, No edema, No calf tenderness / cord - Neuro Neuro: Alert and oriented X 3, No motor deficit, Normal speech Results - Vitals Vitals: Vital Signs - 24 hr 09/21/18 09/21/18 09/21/18 13:24 13:29 13:32 Temperature 36.6 C Heart Rate 99 98 97 Respiratory 16 16 16 Rate Blood Pressure 97/62 76/51 L 94/74 O2 Saturation 99 99 99 Oxygen O2 Source Room air - Labs Labs: Laboratory Tests 09/21/18 09/21/18 09/21/18 12:51 13:04 13:04 WBC 27.8 H RBC 4.73 Hgb 15.0 Hct 45.9 MCV 97.0 MCH 31.6 H MCHC 32.6 RDW 14.1 Plt Count 409 MPV 8.4 Manual Slide Review Indicated VBG pH VBG pCO2 VBG pO2 VBG HCO3 VBG Total CO2 VBG O2 Saturation VBG Base Excess Sodium 141 Potassium 5.0 Chloride 107 Carbon Dioxide 11 L* Anion Gap 23.0 H BUN 37 H Creatinine 1.5 H Estimated GFR (MDRD) 39 L Glucose 366 H POC Whole Bld Glucose 376 H Calcium 9.6 Magnesium 2.1 Total Bilirubin 1.6 H AST 20 ALT 20 Alkaline Phosphatase 81 Total Protein 8.5 H Albumin 4.6 Globulin 3.9 Albumin/Globulin Ratio 1.2 Lipase 22 Serum HCG, Qual Serum Ketones SMALL H 09/21/18 09/21/18 13:04 13:04 WBC RBC Hgb Hct MCV MCH MCHC RDW Plt Count MPV Manual Slide Review VBG pH 7.239 L VBG pCO2 19.6 L VBG pO2 43.7 VBG HCO3 8.2 L VBG Total CO2 8.8 L VBG O2 Saturation 80.1 H VBG Base Excess -17.0 L Sodium Potassium Chloride Carbon Dioxide Anion Gap BUN Creatinine Estimated GFR (MDRD) Glucose POC Whole Bld Glucose Calcium Magnesium Total Bilirubin AST ALT Alkaline Phosphatase Total Protein Albumin Globulin Albumin/Globulin Ratio Lipase Serum HCG, Qual NEGATIVE Serum Ketones PD MEDICAL DECISION MAKING - ED course Complexity details: reviewed results, considered differential (Seems likely DKA and will get appropriate labs and give IV fluids and antiemetics and insulin. There is no obvious trigger based on cold or flu symptoms. We will check a urine test and test. Will check a flu test. She had not had fevers.), d/w patient Departure - Departure Disposition: 66 [facility] DC/Xfer Clinical Impression: DKA (diabetic ketoacidoses) Qualifiers: Diabetes mellitus type: type 1 Diabetes mellitus complication detail: without coma Qualified Code(s): E10.10 - Type 1 diabetes mellitus with ketoacidosis without coma Nausea and vomiting Qualifiers: Vomiting type: unspecified Vomiting Intractability: non-intractable Qualified Code(s): R11.2 - Nausea with vomiting, unspecified Condition: Stable Record reviewed to determine appropriate education?: Yes
[2018-09-21 13:11] LABS: BASOPHILS # (AUTO) 0.1 10^3/uL (0.0-0.1); BASOPHILS % (AUTO) 0.5 %; LYMPHOCYTES % (AUTO) 3.5 %; MEAN CORPUSCULAR HEMOGLOBIN 31.6 pg (27.0-31.0); MEAN CORPUSCULAR HGB CONC 32.6 g/dL (32.0-36.0); MEAN PLATELET VOLUME 8.4 fL (7.9-10.8); MONOCYTES # (AUTO) 1.2 10^3/uL (0.0-1.0); MONOCYTES % (AUTO) 4.4 %; NEUTROPHILS # (AUTO) 25.5 10^3/uL (1.5-6.6); NEUTROPHILS % (AUTO) 91.6 %; PLT - PLATELET COUNT 409 10^3/uL (130-450); RED BLOOD COUNT 4.73 10^6/uL (4.20-5.40); RED CELL DISTRIBUTION WIDTH 14.1 % (12.0-15.0); WHITE BLOOD COUNT 27.8 x10^3/uL (4.8-10.8)
[2018-09-21 13:21] LABS: KETONES, SERUM (ACETEST) SMALL (NEGATIVE)
[2018-09-21 13:26] LABS: VBG PCO2 19.6 mmHg (41-51); VBG PH 7.239 (7.31-7.41); VBG PO2 43.7 mmHg (25-47); VBG TOTAL CO2 8.8 mmol/L (24-29)
[2018-09-21 13:28] LABS: ALBUMIN 4.6 g/dL (3.2-5.5); ALBUMIN/GLOBULIN RATIO 1.2 (1.0-2.2); ALKALINE PHOSPHATASE 81 IU/L (42-121); ALT ALANINE AMINOTRANSFERASE 20 IU/L (10-60); AST ASPARTATE AMINOTRANSFERASE 20 IU/L (10-42); BILIRUBIN,TOTAL 1.6 mg/dL (0.2-1.0); BUN - BLOOD UREA NITROGEN 37 mg/dL (6-20); CALCIUM 9.6 mg/dL (8.5-10.3); CHLORIDE 107 mmol/L (101-111); CREATININE 1.5 mg/dL (0.4-1.0); GFR - MDRD 39 (>89); GLUCOSE 366 mg/dL (70-100); LIPASE 22 U/L (22-51); MAGNESIUM 2.1 mg/dL (1.7-2.8); SODIUM 141 mmol/L (135-145); TOTAL PROTEIN 8.5 g/dL (6.7-8.2)
[2018-09-21 13:29] LABS: CARBON DIOXIDE - CO2 11 mmol/L (21-32)
[2018-09-21 13:46] LABS: HCG,QUALITATIVE BLOOD NEGATIVE
[2018-09-21] MEDS ORDERED: INSULIN REGULAR HUMAN 100 UNIT in SODIUM CHLORIDE 0.9% 100ML 99 ML IV STA (13:49)
[2018-09-21 13:54] LABS: PLATELET ESTIMATE, MANUAL NORMAL (130-450,000) (NORMAL); PLATELET MORPHOLOGY NORMAL APPEARANCE (NORMAL); RBC MORPHOLOGY (MULTIPLE) NORMAL APPEARANCE (NORMAL)
--- NOTE | 2018-09-21 14:09 | HISTORY & PHYSICAL EXAMINATION ---
Chief Complaint - Chief Complaint Chief Complaint: progressive abd pain, weakness, lethargy Abdominal Pain HPI - Admitted From Admitted from: ED - History Obtained From Records Reviewed: RN notes reviewed History obtained from: Family Exam limitations: Clinical condition - History of Present Illness Severity at the worst: Severe Timing: Gradual onset HPI Comment/Other: This is a 37-year-old Multiparous, type 1 diabetes mellitus with insulin pump with history of chronic bladder infection on oral antibiotics at home with Keflex finished Treatment about a month ago, history of DKA and uncontrolled type 1 diabetes mellitus with a previous hemoglobin A1c of 11.8% who in the past has had annual admissions for DKA per history. Currently takes Lantus 27 units subcu daily as well as Humalog 100 units subcu daily presents with increased weakness, lethargy associated with elevated sugars for the last 2-3 days in the 200-400 range. She is typically in good control. She had not had any illness fevers cough or cold. Patient denies any dysuria pelvic pain, diarrhea, hemo ptysis or hematochezia, sick contacts, joint swelling or maculopapular rashes. The only change was a change in her insulin pump infusion site so they are considering whether in retrospect it was crimped and not infusing properly. Otherwise no obvious infectious cause. No change in diet. No change in activity. She has had similar episodes with diagnosis of DKA typically related to infectious process about once a year or less. Patient's symptoms have been progressively getting worse with associated weakness lethargy for the past 2-3 days. Due to patient's lethargy patient is unable to give full history and most information is obtained through family member. Upon further investigation with her labs patient has a white count of 27.8 with positive serum ketones pH of 7.2 with a PCO2 of 19.6 and a bicarb of 8.2 on VBG. Patient's bicarb was 11 electrolytes were somewhat normal with a potassium of 5.0 and a creatinine of 1.5 and a glucose of 366. Patient's hCG was negative. A urine drug screen was essentially ordered to rule out other possibilities however I suspect a chronic bladder infection for which she is currently getting treatment. Patient will be admitted for SIRS, suspected underlying urinary tract infection with a history of chronic bladder infection, DKA, moderate to severe dehydration with electrolyte disturbance. Patient to be placed on an ICU with continue IV fluid resuscitation along with IV Rocephin and correction of lytes along with placing on DKA protocol. Patient has an insulin pump currently. 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 HEENT: positive: Detached retina repair Social & Family Hx - Social History Does the pt smoke?: No Smoking Status: Never smoker Does the pt drink ETOH?: No Does the pt have substance abuse?: No Meds/Allgy - Home Medications Home Medications: Ambulatory Orders Medication Instructions Recorded Confirmed Dorzolamide/Timolol Ophth Soln 1 drops OP BID 04/03/17 09/21/18 [Cosopt] Insulin Glargine [Lantus] 27 units SQ PRN PRN 04/03/17 09/21/18 Insulin Lispro [Humalog] 100 unit SQ DAILY 04/03/17 09/21/18 Ondansetron Odt [Zofran Odt] 4 mg TL Q6HR PRN #10 tablet 04/05/17 09/21/18 - Allergies Allergies/Adverse Reactions: Allergies Allergy/AdvReac Type Severity Reaction Status Date / Time No Known Drug Allergies Allergy Verified 09/21/18 13:27 Review of Systems - Constitutional Constitutional: reports: Fatigue - All Other Systems All Other Systems: reports: Reviewed and negative Prior Level of Functionality: Patient with independent home ADLs. Exam - Vital Signs Vital Signs: Vital Signs x48h Temp Pulse Resp BP Pulse Ox 09/21/18 13:32 97 16 94/74 99 09/21/18 13:29 98 16 76/51 L 99 09/21/18 13:24 36.6 C 99 16 97/62 99 - Physical Exam General Appearance: positive: Lethargic, Other (Arousable) Eyes Bilateral: positive: Conjunctivae nml ENT: positive: ENT inspection nml, Dry mucous membranes Neck: positive: Nml inspection, Thyroid nml, No JVD Respiratory: positive: Chest non-tender, No respiratory distress, Breath sounds nml Cardiovascular: positive: Regular rate & rhythm, No murmur, No gallop Peripheral Pulses: positive: 2+ Abdomen: positive: Non-tender, No organomegaly, Nml bowel sounds, No distention. negative: Tenderness Skin: positive: Color nml, No rash, Dry Extremities: positive: Non-tender, Nml appearance. negative: Pedal edema, Joint swelling, Terri's sign/cords Neurologic/Psychiatric: positive: Depressed mood/affect (Due to lethargic status patient difficult for full neurological and psychiatric exam.) Results - Lab Results Fish Bones: 09/21/18 13:04 09/21/18 14:25 Other Lab Results: Lab Results x24hrs 09/21/18 09/21/18 09/21/18 Range/Units 13:04 13:04 13:04 WBC (4.8-10.8) x10^3/uL RBC (4.20-5.40) 10^6/uL Hgb (12.0-16.0) g/dL Hct (37.0-47.0) % MCV (81.0-99.0) fL MCH (27.0-31.0) pg MCHC (32.0-36.0) g/dL RDW (12.0-15.0) % Plt Count (130-450) 10^3/uL MPV (7.9-10.8) fL Neut # (Auto) (1.5-6.6) 10^3/uL Lymph # (Auto) (1.5-3.5) 10^3/uL [place] # (Auto) (0.0-1.0) 10^3/uL Eos # (Auto) (0.0-0.7) 10^3/uL Baso # (Auto) (0.0-0.1) 10^3/uL Absolute Nucleated RBC x10^3/uL Nucleated RBC % /100WBC Manual Slide Review WBC Morphology (NORMAL) Platelet Estimate (NORMAL) Platelet Morphology (NORMAL) RBC Morph Micro Appear (NORMAL) VBG pH 7.239 L (7.31-7.41) VBG pCO2 19.6 L (41-51) mmHg VBG pO2 43.7 (25-47) mmHg VBG HCO3 8.2 L (23-28) mmol/L VBG Total CO2 8.8 L (24-29) mmol/L VBG O2 Saturation 80.1 H (60-80) % VBG Base Excess -17.0 L (-2 - +2) mmol/L Sodium 141 (135-145) mmol/L Potassium 5.0 (3.5-5.0) mmol/L Chloride 107 (101-111) mmol/L Carbon Dioxide 11 L* (21-32) mmol/L Anion Gap 23.0 H (6-13) BUN 37 H (6-20) mg/dL Creatinine 1.5 H (0.4-1.0) mg/dL Estimated GFR (MDRD) 39 L (>89) Glucose 366 H (70-100) mg/dL POC Whole Bld Glucose (70 - 100) mg/dL Calcium 9.6 (8.5-10.3) mg/dL Magnesium 2.1 (1.7-2.8) mg/dL Total Bilirubin 1.6 H (0.2-1.0) mg/dL AST 20 (10-42) IU/L ALT 20 (10-60) IU/L Alkaline Phosphatase 81 (42-121) IU/L Total Protein 8.5 H (6.7-8.2) g/dL Albumin 4.6 (3.2-5.5) g/dL Globulin 3.9 (2.1-4.2) g/dL Albumin/Globulin Ratio 1.2 (1.0-2.2) Lipase 22 (22-51) U/L Serum HCG, Qual NEGATIVE Serum Ketones SMALL H (NEGATIVE) 09/21/18 09/21/18 Range/Units 13:04 12:51 WBC 27.8 H (4.8-10.8) x10^3/uL RBC 4.73 (4.20-5.40) 10^6/uL Hgb 15.0 (12.0-16.0) g/dL Hct 45.9 (37.0-47.0) % MCV 97.0 (81.0-99.0) fL MCH 31.6 H (27.0-31.0) pg MCHC 32.6 (32.0-36.0) g/dL RDW 14.1 (12.0-15.0) % Plt Count 409 (130-450) 10^3/uL MPV 8.4 (7.9-10.8) fL Neut # (Auto) 25.5 H (1.5-6.6) 10^3/uL Lymph # (Auto) 1.0 L (1.5-3.5) 10^3/uL [place] # (Auto) 1.2 H (0.0-1.0) 10^3/uL Eos # (Auto) 0.0 (0.0-0.7) 10^3/uL Baso # (Auto) 0.1 (0.0-0.1) 10^3/uL Absolute Nucleated RBC 0.00 x10^3/uL Nucleated RBC % 0.0 /100WBC Manual Slide Review Indicated WBC Morphology TOXIC GRANULATION (NORMAL) Platelet Estimate NORMAL (130-450,000) (NORMAL) Platelet Morphology NORMAL APPEARANCE (NORMAL) RBC Morph Micro Appear NORMAL APPEARANCE (NORMAL) VBG pH (7.31-7.41) VBG pCO2 (41-51) mmHg VBG pO2 (25-47) mmHg VBG HCO3 (23-28) mmol/L VBG Total CO2 (24-29) mmol/L VBG O2 Saturation (60-80) % VBG Base Excess (-2 - +2) mmol/L Sodium (135-145) mmol/L Potassium (3.5-5.0) mmol/L Chloride (101-111) mmol/L Carbon Dioxide (21-32) mmol/L Anion Gap (6-13) BUN (6-20) mg/dL Creatinine (0.4-1.0) mg/dL Estimated GFR (MDRD) (>89) Glucose (70-100) mg/dL POC Whole Bld Glucose 376 H (70 - 100) mg/dL Calcium (8.5-10.3) mg/dL Magnesium (1.7-2.8) mg/dL Total Bilirubin (0.2-1.0) mg/dL AST (10-42) IU/L ALT (10-60) IU/L Alkaline Phosphatase (42-121) IU/L Total Protein (6.7-8.2) g/dL Albumin (3.2-5.5) g/dL Globulin (2.1-4.2) g/dL Albumin/Globulin Ratio (1.0-2.2) Lipase (22-51) U/L Serum HCG, Qual Serum Ketones (NEGATIVE) - EKG Results EKG Interpreted Independently: No Sepsis Event Note (H) - Evaluation Sepsis Documentation Tip Sheet: SIRS criteria with no source of infection Possible source of Sepsis: positive: Genitourinary - Sepsis Criteria Sepsis Criteria: Recorded Heart Rate greater than 90 bpm, WBC count greater than 12,000 or less than 4000, SALES SERVICE ASSISTANT: altered consciousness (unrelated to primary neuro pathology) Impression/Plan - Problem List Problem List: 1. SIRS criteria 2. Suspected underlying Bladder infection as patient has history of cystitis and on Keflex 3. DKA 4. Acute moderate to severe dehydration next 5. Acute renal insufficiency 6. Encephalopathy secondary to DKA 7. Lethargy with generalized weakness secondary to above 5. Uncontrolled type 1 diabetes mellitus on an insulin pump Plan: We will admit to ICU, initiate aggressive IV fluid resuscitation DKA protocol with electrolyte repletion correction of underlying electrolyte disturbances and perfusion of kidneys, avoidance of nephrotoxic agents. SIRS criteria met but no underlying source of infection however I query on chronic bladder infection as she was taking Keflex Approximately 1 month ago. Patient not feeling pelvic pain or dysuria. There is no upper respiratory tract infection or symptoms. UA with micro/cx to follow. We will hold off on insulin pump and place on insulin drip until patient is able to be weaned off and then subsequently transition to Lantus and possibly turn the insulin pump back on. Previous hemoglobin A1c was 11.8% on 03/30, likely uncontrolled at this point. Will place on empiric IV Rocephin for now. May want to suppress with Monurol for chronic UTI vs as patient has chronic bladder infection. Luis catheter to follow. Patient may need central line placement if refractory to aggressive IV fluid resuscitation. Initiate GI and DVT prophylaxis CODE STATUS: Full code Core Measures - Anticipated LOS I expect patient to be DC'd or transferred within 96 hours.: Yes - Issues Hospital Issues and Management Plan: DKA protocol IV fluids, glycemic control, empiric IV antibiotic, medical management - DVT/VTE - Prophylaxis VTE/DVT Device ordered at admit?: Yes VTE/DVT Prophylaxis med ordered at admit?: Yes - Stroke - Rehab Assessment Rehab services assessment to be ordered?: No Not Ordered - Medical Reason: Not indicated - AMI - Statin at Admit Aspirin Prescribed on Admit: No Not Ordered - Medical Reason: Not indicated
[2018-09-21] MEDS ORDERED: ONDANSETRON 4 MG/2 ML VIAL IVP PRN (14:10)
[2018-09-21] MEDS ORDERED: HYDROmorphone 1 MG/ML CARPUJECT IVP PRN (14:10)
[2018-09-21] MEDS ORDERED: PROCHLORPERAZINE 10 MG/2 ML VIAL IVP PRN (14:10)
[2018-09-21 14:33] LABS: VBG BASE EXCESS -11.3 mmol/L (-2 - +2); VBG PCO2 29.9 mmHg (41-51); VBG PH 7.286 (7.31-7.41); VBG PO2 38.8 mmHg (25-47); VBG TOTAL CO2 14.8 mmol/L (24-29)
[2018-09-21 14:42] LABS: CALCIUM 8.9 mg/dL (8.5-10.3); CREATININE 1.2 mg/dL (0.4-1.0); MAGNESIUM 1.9 mg/dL (1.7-2.8)
[2018-09-21 14:58] LABS: HB2 TOTAL 14.6 g/dL; HEMOGLOBIN A1C 1.6 g/dL; HEMOGLOBIN A1C % 12.2 % (4.6-6.2)
[2018-09-21] MEDS ORDERED: SODIUM CHLORIDE 0.9% 1,000 ML IV SCH ×2 (15:00→19:21)
[2018-09-21] MEDS ORDERED: POTASSIUM CHLOR 10 MEQ/100 ML 10 MEQ/100 ML BAG IV ONE (15:05)
[2018-09-21] MEDS: INSULIN REGULAR HUMAN 100 UNIT in SODIUM CHLORIDE 0.9% 100ML 99 ML IV SCH (15:42)
[2018-09-21] MEDS: SODIUM CHLORIDE FLUSH 0.9% 10 ML SYRINGE IVP PRN (16:00)
[2018-09-21] MEDS ORDERED: POTASSIUM CHLORIDE INJ 40 MEQ in DEXTROSE 5%-0.45% NACL 980 ML IV SCH (16:00)
[2018-09-21] MEDS: ONDANSETRON 4 MG/2 ML VIAL IVP PRN (16:00)
[2018-09-21] MEDS: cefTRIAXone 1 GM in SODIUM CHLORIDE 0.9% MINIBAG 100 ML IV SCH (16:30)
[2018-09-21 16:32] LABS: VBG PCO2 27.9 mmHg (41-51); VBG PH 7.295 (7.31-7.41)
[2018-09-21 16:43] LABS: CALCIUM 8.5 mg/dL (8.5-10.3); MAGNESIUM 1.9 mg/dL (1.7-2.8)
[2018-09-21] MEDS ORDERED: POTASSIUM CHLOR 10 MEQ/100 ML 10 MEQ/100 ML BAG IV SCH (17:00)
[2018-09-21] MEDS: SODIUM CHLORIDE FLUSH 0.9% 10 ML SYRINGE IVP SCH (17:03)
[2018-09-21 18:02] LABS: GLUCOSE, URINE (UA) >=1000 mg/dL (NEGATIVE); KETONES,URINE (UA) >=80 mg/dL (NEGATIVE); LEUKOCYTE ESTERASE, URINE TRACE (NEGATIVE); NITRITE,URINE NEGATIVE (NEGATIVE); OCCULT BLOOD,URINE LARGE (NEGATIVE); PROTEIN,URINE TRACE mg/dL (NEGATIVE); UROBILINOGEN,URINE 0.2 (NORMAL) E.U./dL (NORMAL)
[2018-09-21 18:17] LABS: MUDS CUTOFF CONCENTRATIONS CUTOFF CONC BELOW:
[2018-09-21 18:21] LABS: CLARITY,URINE CLOUDY (CLEAR)
[2018-09-21 18:22] LABS: BILIRUBIN,URINE NEGATIVE (NEGATIVE); ICTOTEST,URINE NEGATIVE
[2018-09-21 18:23] LABS: BACTERIA,URINE Few /HPF (None Seen); SQUAMOUS EPITHELIAL CELL,UR MOD Squamous (<= Few)
[2018-09-21 18:24] LABS: CASTS, URINE 11-25 Hyaline Casts /LPF
[2018-09-21 18:29] LABS: AMPHETAMINE SCREEN,URINE NEGATIVE (NEGATIVE); BENZODIAZEPINES SCREEN, URINE NEGATIVE (NEGATIVE); COCAINE SCREEN URINE NEGATIVE (NEGATIVE); METHADONE SCREEN, URINE NEGATIVE (NEGATIVE); METHAMPHETAMINES SCREEN, URINE NEGATIVE (NEGATIVE); OPIATE SCREEN, URINE NEGATIVE (NEGATIVE); OXYCODONE SCREEN, URINE NEGATIVE (NEGATIVE); PROPOXYPHENE SCREEN, URINE NEGATIVE (NEGATIVE); TRICYCLIC ANTIDEPRESSANT,URINE NEGATIVE (NEGATIVE)
[2018-09-21 18:41] LABS: CALCIUM 8.1 mg/dL (8.5-10.3)
[2018-09-21] MEDS ORDERED: NS W/40 MEQ KCL 1,000 ML IV SCH (18:43)
[2018-09-21 18:44] LABS: MAGNESIUM 1.9 mg/dL (1.7-2.8); PHOSPHORUS 2.4 mg/dL (2.5-4.6)
[2018-09-21] MEDS ORDERED: POTASSIUM PHOSPHATE 15 MMOL in SODIUM CHLORIDE 0.9% 250 ML IV ONE (18:49)
[2018-09-21] MEDS ORDERED: SODIUM PHOSPHATE 15 MMOL in SODIUM CHLORIDE 0.9% 250 ML IV PRN (19:47)
[2018-09-21] MEDS ORDERED: DORZOLAMIDE/TIMOLOL OPHTH DROPS LEFTEYE SCH (21:00)
[2018-09-21] MEDS: PANTOPRAZOLE 40 MG VIAL IVP SCH (21:35)
[2018-09-21] MEDS: TIMOLOL 0.5% OPHTH DROPS LEFTEYE SCH (21:47)
[2018-09-21] MEDS: DORZOLAMIDE 2% OPHTH DROPS LEFTEYE SCH (21:48)
[2018-09-21] MEDS: HEPARIN 5,000 UNIT/ML VIAL SUBQ SCH (21:49)
[2018-09-21 22:49] LABS: CALCIUM 8.4 mg/dL (8.5-10.3); CREATININE 0.9 mg/dL (0.4-1.0)
[2018-09-21] MEDS: DEXTROSE 5%-0.45% NACL 1,000 ML IV SCH (23:25)
[2018-09-22] MEDS: SODIUM CHLORIDE FLUSH 0.9% 10 ML SYRINGE IVP SCH ×3 (01:06→17:36)
[2018-09-22 05:50] LABS: BASOPHILS # (AUTO) 0.1 10^3/uL (0.0-0.1); BASOPHILS % (AUTO) 0.5 %; HGB - HEMOGLOBIN 11.5 g/dL (12.0-16.0); LYMPHOCYTES # (AUTO) 1.4 10^3/uL (1.5-3.5); LYMPHOCYTES % (AUTO) 6.8 %; MEAN CORPUSCULAR HEMOGLOBIN 31.2 pg (27.0-31.0); MEAN CORPUSCULAR HGB CONC 32.5 g/dL (32.0-36.0); MEAN PLATELET VOLUME 8.4 fL (7.9-10.8); MONOCYTES # (AUTO) 1.6 10^3/uL (0.0-1.0); MONOCYTES % (AUTO) 7.7 %; NEUTROPHILS # (AUTO) 17.8 10^3/uL (1.5-6.6); PLT - PLATELET COUNT 309 10^3/uL (130-450); RED BLOOD COUNT 3.67 10^6/uL (4.20-5.40); RED CELL DISTRIBUTION WIDTH 14.2 % (12.0-15.0); WHITE BLOOD COUNT 20.9 x10^3/uL (4.8-10.8)
[2018-09-22 05:55] LABS: KETONES, SERUM (ACETEST) SMALL (NEGATIVE)
[2018-09-22 06:02] LABS: BUN - BLOOD UREA NITROGEN 18 mg/dL (6-20); CALCIUM 8.1 mg/dL (8.5-10.3); CARBON DIOXIDE - CO2 19 mmol/L (21-32); CHLORIDE 114 mmol/L (101-111); CREATININE 0.7 mg/dL (0.4-1.0); GFR - MDRD 95 (>89); GLUCOSE 230 mg/dL (70-100); PHOSPHORUS 2.8 mg/dL (2.5-4.6); SODIUM 142 mmol/L (135-145)
[2018-09-22] MEDS: ONDANSETRON 4 MG/2 ML VIAL IVP PRN (06:23)
[2018-09-22] MEDS: DEXTROSE 5%-0.45% NACL 1,000 ML IV SCH ×2 (07:51→15:33)
[2018-09-22] MEDS: SODIUM CHLORIDE FLUSH 0.9% 10 ML SYRINGE IVP PRN (09:21)
[2018-09-22] MEDS: PANTOPRAZOLE 40 MG VIAL IVP SCH ×2 (09:22→21:14)
[2018-09-22] MEDS: cefTRIAXone 1 GM in SODIUM CHLORIDE 0.9% MINIBAG 100 ML IV SCH (09:33)
[2018-09-22] MEDS: TIMOLOL 0.5% OPHTH DROPS LEFTEYE SCH ×2 (09:45→21:18)
[2018-09-22] MEDS: DORZOLAMIDE 2% OPHTH DROPS LEFTEYE SCH ×2 (09:47→21:18)
[2018-09-22] MEDS: HEPARIN 5,000 UNIT/ML VIAL SUBQ SCH ×2 (09:49→21:20)
[2018-09-22] MEDS: POTASSIUM CHLOR 10 MEQ/100 ML 10 MEQ/100 ML BAG IV SCH ×4 (11:14→14:49)
--- NOTE | 2018-09-22 11:54 | PROVIDER PROGRESS NOTE ---
Assessment/Plan - Problem List (1) DKA (diabetic ketoacidoses) Qualifiers: Diabetes mellitus type: type 1 Diabetes mellitus complication detail: without coma Qualified Code(s): E10.10 - Type 1 diabetes mellitus with ketoacidosis without coma Assessment/Plan: She still has sx of N/V and still has (+) serum ketones. Will continue Insulin drip and DKA protocol in ICU. Continue antiemetics prn. Continue iv fluids. Diet: still clear liquids since she still has N/V. (2) Urinary tract infection Assessment/Plan: This is her presumed DKA trigger (along with poor Insulin pump) Continue iv antibx, await cultures. (3) Dehydration Assessment/Plan: Continue iv hydration. (4) LAURA (acute kidney injury) Assessment/Plan: Improving. Continue iv hydration. (5) Lethargic Assessment/Plan: Still weak and sleepy, still coming out of DKA. (6) Uncontrolled insulin dependent type 1 diabetes mellitus Assessment/Plan: Her A1c was 12.2, which is surprisingly high for someone on an Insulin pump. 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 She may need Diabetic teaching consult from [facility]. (7) SIRS (systemic inflammatory response syndrome) Assessment/Plan: Tachycardia has resolved with hydration and management of sx. - Current Meds Current Meds: Current Medications Generic Name Dose Route Start Last Admin Trade Name Freq PRN Reason Stop Dose Admin Dorzolamide HCl 1 drops 09/21/18 21:00 09/22/18 09:47 Trusopt 2% Ophth Drops LEFTEYE 1 drops BID FERCHO Administration Heparin Sodium (Porcine) 5,000 unit 09/21/18 21:00 09/22/18 09:49 SUBQ 5,000 unit BID FERCHO Administration Ceftriaxone Sodium 1 gm/ 100 mls @ 200 mls/hr 09/21/18 14:14 09/22/18 10:03 Sodium Chloride IV Infused DAILY FERCHO Infusion Insulin Human Regular 100 unit 100 mls @ 5.44 mls/hr 09/21/18 16:00 09/22/18 11:46 / Sodium Chloride IV 1 unit/hr .[id number] FERCHO 1 mls/hr Titration Protocol 5.44 UNIT/HR Sodium Phosphate 15 mmol/ 255 mls @ 41 mls/hr 09/21/18 19:47 09/22/18 03:31 Sodium Chloride IV Infused PRN PRN Infusion For phosp<2.5 Dextrose/Sodium Chloride 1,000 mls @ 75 mls/hr 09/21/18 23:45 09/22/18 11:46 D5.45ns IV 125 mls/hr .[id number] FERCHO Infusion Potassium Chloride 10 meq in 100 mls @ 100 mls/hr 09/22/18 11:00 09/22/18 11:14 Potassium Chloride IV 09/22/18 14:59 100 mls/hr Q1H FERCHO Administration Protocol Ondansetron HCl 4 mg 09/21/18 15:22 09/22/18 06:23 Zofran Inj IVP 4 mg Q1HR PRN Administration Nausea / Vomiting Pantoprazole Sodium 40 mg 09/21/18 21:00 09/22/18 09:22 Protonix IVP 40 mg BID FERCHO Administration Prochlorperazine Edisylate 10 mg 09/21/18 14:10 09/22/18 09:18 Compazine Inj IVP 10 mg Q6HR PRN Administration Nausea / Vomiting Sodium Chloride 10 ml 09/21/18 17:00 09/22/18 09:55 Normal Saline Flush 0.9% IVP Not Given 0100,0900,1700 FERCHO Sodium Chloride 10 ml 09/21/18 14:10 09/22/18 09:21 Normal Saline Flush 0.9% IVP 10 ml PRN PRN Administration NEEDED PER PROVIDER ORDERS Timolol Maleate 1 drops 09/21/18 21:00 09/22/18 09:45 Timoptic 0.5% Ophth Drops LEFTEYE 1 drops BID FERCHO Administration - Lab Result Fish Bone Diagrams: 09/22/18 04:53 09/22/18 04:53 - Additional Planning My Orders: My Active Orders 09/22/18 Lunch Clear Liquid Diet [DIET] Subjective - Subjective Patient Reports: Nausea Nursing Reports: Nausea, Vomitting, Other (Took no am breakfast off tray) Objective Vital Signs: Vital Signs - 24 hr 09/21/18 09/21/18 09/21/18 13:24 13:29 13:32 Temperature 36.6 C Heart Rate 99 98 97 Heart Rate [ Monitoring electrodes] Respiratory 16 16 16 Rate Blood Pressure 97/62 76/51 L 94/74 Blood Pressure [Right Brachial artery] O2 Saturation 99 99 99 09/21/18 09/21/1819 14:17 14:22 15:05 Temperature Heart Rate 97 102 H 97 Heart Rate [ Monitoring electrodes] Respiratory 18 16 Rate Blood Pressure 101/62 101/62 106/53 L Blood Pressure [Right Brachial artery] O2 Saturation 99 98 99 09/21/18 09/21/18 09/21/18 15:38 16:00 17:00 Temperature 37.2 C Heart Rate Heart Rate [ 99 98 95 Monitoring electrodes] Respiratory 24 26 H 16 Rate Blood Pressure Blood Pressure 114/46 L 103/59 L 94/55 L [Right Brachial artery] O2 Saturation 99 99 99 09/21/18 09/21/18 09/21/18 17:47 19:00 20:00 Temperature 37.0 C Heart Rate Heart Rate [ 101 H 99 98 Monitoring electrodes] Respiratory 22 20 17 Rate Blood Pressure Blood Pressure 94/55 L 130/68 114/67 [Right Brachial artery] O2 Saturation 97 98 100 09/21/18 09/21/18 09/21/18 21:00 22:00 23:00 Temperature Heart Rate Heart Rate [ 97 91 91 Monitoring electrodes] Respiratory 19 14 12 Rate Blood Pressure Blood Pressure 111/71 122/68 116/53 L [Right Brachial artery] O2 Saturation 98 99 99 09/22/18 09/22/18 09/22/18 00:00 01:00 02:00 Temperature 36.7 C Heart Rate Heart Rate [ 92 93 92 Monitoring electrodes] Respiratory 12 10 L 12 Rate Blood Pressure Blood Pressure 110/55 L 118/69 99/59 L [Right Brachial artery] O2 Saturation 99 99 98 09/22/18 09/22/18 09/22/18 03:00 04:00 05:00 Temperature 37.1 C Heart Rate Heart Rate [ 92 92 94 Monitoring electrodes] Respiratory 13 15 14 Rate Blood Pressure Blood Pressure 121/64 109/54 L 116/60 [Right Brachial artery] O2 Saturation 98 98 99 09/22/18 09/22/18 09/22/18 06:00 08:00 09:00 Temperature 37.4 C Heart Rate Heart Rate [ 95 94 90 Monitoring electrodes] Respiratory 14 17 10 L Rate Blood Pressure Blood Pressure 110/65 123/70 122/72 [Right Brachial artery] O2 Saturation 98 99 99 09/22/18 09/22/18 10:00 11:00 Temperature Heart Rate Heart Rate [ 90 91 Monitoring electrodes] Respiratory 14 10 L Rate Blood Pressure Blood Pressure 108/67 121/72 [Right Brachial artery] O2 Saturation 98 96 Oxygen O2 Source Room air I&O (Last 24 Hrs): Intake and Output Totals x24h 09/20/18 09/21/18 09/22/18 23:59 23:59 23:59 Intake Total 3426.916 2039.903 Output Total 300 650 Balance 3126.916 1389.903 General: Alert, Other (Lethargic) HEENT: Other (Mucosa dry) Neuro: Non Focal Cardiovascular: Regular rate, No murmurs Respiratory: No respiratory distress, Breath sounds nml Abdomen: Soft Extremities: No edema - Results Results: Laboratory Results WBC 20.9 x10^3/uL (4.8-10.8) H 09/22/18 04:53 RBC 3.67 10^6/uL (4.20-5.40) L 09/22/18 04:53 Hgb 11.5 g/dL (12.0-16.0) L 09/22/18 04:53 Hct 35.2 % (37.0-47.0) L 09/22/18 04:53 MCV 96.0 fL (81.0-99.0) 09/22/18 04:53 MCH 31.2 pg (27.0-31.0) H 09/22/18 04:53 MCHC 32.5 g/dL (32.0-36.0) 09/22/18 04:53 RDW 14.2 % (12.0-15.0) 09/22/18 04:53 Plt Count 309 10^3/uL (130-450) 09/22/18 04:53 MPV 8.4 fL (7.9-10.8) 09/22/18 04:53 Neut # (Auto) 17.8 10^3/uL (1.5-6.6) H 09/22/18 04:53 Lymph # (Auto) 1.4 10^3/uL (1.5-3.5) L 09/22/18 04:53 [place] # (Auto) 1.6 10^3/uL (0.0-1.0) H 09/22/18 04:53 Eos # (Auto) 0.0 10^3/uL (0.0-0.7) 09/22/18 04:53 Baso # (Auto) 0.1 10^3/uL (0.0-0.1) 09/22/18 04:53 Absolute Nucleated RBC 0.00 x10^3/uL 09/22/18 04:53 Nucleated RBC % 0.0 /100WBC 09/22/18 04:53 Manual Slide Review Indicated 09/21/18 13:04 WBC Morphology TOXIC GRANULATION (NORMAL) 09/21/18 13:04 Platelet Estimate NORMAL (130-450,000) (NORMAL) 09/21/18 13:04 Platelet Morphology NORMAL APPEARANCE (NORMAL) 09/21/18 13:04 RBC Morph Micro Appear NORMAL APPEARANCE (NORMAL) 09/21/18 13:04 VBG pH 7.295 (7.31-7.41) L 09/21/18 16:15 VBG pCO2 27.9 mmHg (41-51) L 09/21/18 16:15 VBG pO2 136.0 mmHg (25-47) H 09/21/18 16:15 VBG HCO3 13.6 mmol/L (23-28) L 09/21/18 16:15 VBG Total CO2 14.0 mmol/L (24-29) L 09/21/18 16:15 VBG O2 Saturation 99.0 % (60-80) H 09/21/18 16:15 VBG Base Excess -13.0 mmol/L (-2 - +2) L 09/21/18 16:15 Sodium 142 mmol/L (135-145) 09/22/18 04:53 Potassium 3.5 mmol/L (3.5-5.0) 09/22/18 04:53 Chloride 114 mmol/L (101-111) H 09/22/18 04:53 Carbon Dioxide 19 mmol/L (21-32) L 09/22/18 04:53 Anion Gap 9.0 (6-13) 09/22/18 04:53 BUN 18 mg/dL (6-20) 09/22/18 04:53 Creatinine 0.7 mg/dL (0.4-1.0) 09/22/18 04:53 Estimated GFR (MDRD) 95 (>89) 09/22/18 04:53 Glucose 230 mg/dL (70-100) H 09/22/18 04:53 POC Whole Bld Glucose 158 mg/dL (70 - 100) H 09/22/18 11:45 Glycated Hemoglobin 12.2 % (4.6-6.2) H 09/21/18 14:25 Estim Average Glucose 303 (70-100) H 09/21/18 14:25 Lactic Acid 1.2 mmol/L (0.5-2.2) 09/21/18 16:15 Calcium 8.1 mg/dL (8.5-10.3) L 09/22/18 04:53 Phosphorus 2.8 mg/dL (2.5-4.6) 09/22/18 04:53 Magnesium 1.9 mg/dL (1.7-2.8) 09/22/18 05:00 Total Bilirubin 1.6 mg/dL (0.2-1.0) H 09/21/18 13:04 AST 20 IU/L (10-42) 09/21/18 13:04 ALT 20 IU/L (10-60) 09/21/18 13:04 Alkaline Phosphatase 81 IU/L (42-121) 09/21/18 13:04 Total Protein 8.5 g/dL (6.7-8.2) H 09/21/18 13:04 Albumin 3.0 g/dL (3.2-5.5) L 09/22/18 04:53 Globulin 3.9 g/dL (2.1-4.2) 09/21/18 13:04 Albumin/Globulin Ratio 1.2 (1.0-2.2) 09/21/18 13:04 Triglycerides 101 mg/dL (-149) 09/21/18 16:15 Lipase 22 U/L (22-51) 09/21/18 13:04 Serum HCG, Qual NEGATIVE 09/21/18 13:04 Urine Color YELLOW 09/21/18 17:45 Urine Clarity CLOUDY (CLEAR) 09/21/18 17:45 Urine pH 6.0 PH (5.0-7.5) 09/21/18 17:45 Ur Specific [place] 1.025 (1.002-1.030) 09/21/18 17:45 Urine Protein TRACE mg/dL (NEGATIVE) 09/21/18 17:45 Urine Glucose (UA) >=1000 mg/dL (NEGATIVE) H 09/21/18 17:45 Urine Ketones >=80 mg/dL (NEGATIVE) H 09/21/18 17:45 Urine Occult Blood LARGE (NEGATIVE) H 09/21/18 17:45 Urine Nitrite NEGATIVE (NEGATIVE) 09/21/18 17:45 Urine Bilirubin NEGATIVE (NEGATIVE) 09/21/18 17:45 Urine Urobilinogen 0.2 (NORMAL) E.U./dL (NORMAL) 09/21/18 17:45 Ur Leukocyte Esterase TRACE (NEGATIVE) H 09/21/18 17:45 Urine RBC 6-10 /HPF (0-5) H 09/21/18 17:45 Urine WBC 6-10 /HPF (0-5) H 09/21/18 17:45 Ur Squamous Epith Cells MOD Squamous (<= Few) H 09/21/18 17:45 Urine Bacteria Few /HPF (None Seen) 09/21/18 17:45 Urine Casts 11-25 Hyaline Casts /LPF 09/21/18 17:45 Ur Microscopic Review INDICATED 09/21/18 17:45 Urine Culture Comments NOT INDICATED 09/21/18 17:45 Nasal Screen MRSA (PCR) NEGATIVE (NEGATIVE) 09/21/18 16:15 Urine Opiates Screen NEGATIVE (NEGATIVE) 09/21/18 17:45 Ur Oxycodone Screen NEGATIVE (NEGATIVE) 09/21/18 17:45 Urine Methadone Screen NEGATIVE (NEGATIVE) 09/21/18 17:45 Ur Propoxyphene Screen NEGATIVE (NEGATIVE) 09/21/18 17:45 Ur Barbiturates Screen NEGATIVE (NEGATIVE) 09/21/18 17:45 Ur Tricyclics Screen NEGATIVE (NEGATIVE) 09/21/18 17:45 Ur Phencyclidine Scrn NEGATIVE (NEGATIVE) 09/21/18 17:45 Ur Amphetamine Screen NEGATIVE (NEGATIVE) 09/21/18 17:45 U Methamphetamines Scrn NEGATIVE (NEGATIVE) 09/21/18 17:45 U Benzodiazepines Scrn NEGATIVE (NEGATIVE) 09/21/18 17:45 Urine Cocaine Screen NEGATIVE (NEGATIVE) 09/21/18 17:45 U Cannabinoids Screen NEGATIVE (NEGATIVE) 09/21/18 17:45 Serum Ketones SMALL (NEGATIVE) H 09/22/18 04:53 Influenza A (Rapid) Negative (Negative) 09/21/18 16:15 Influenza B (Rapid) Negative (Negative) 09/21/18 16:15 Sepsis Event Note (H) - Evaluation Possible source of Sepsis: positive: Genitourinary - Sepsis Criteria Sepsis Criteria: Recorded Heart Rate greater than 90 bpm, WBC count greater than 12,000 or less than 4000, EDITORIAL DIRECTOR: altered consciousness (unrelated to primary neuro pathology)
[2018-09-23] MEDS: DEXTROSE 5%-0.45% NACL 1,000 ML IV SCH ×2 (03:04→17:09)
[2018-09-23] MEDS: SODIUM CHLORIDE FLUSH 0.9% 10 ML SYRINGE IVP SCH ×3 (04:39→17:09)
[2018-09-23] MEDS: INSULIN REGULAR HUMAN 100 UNIT in SODIUM CHLORIDE 0.9% 100ML 99 ML IV SCH ×2 (04:57→07:15)
[2018-09-23 05:35] LABS: BASOPHILS % (AUTO) 0.3 %; EOSINOPHILS % (AUTO) 0.1 %; HGB - HEMOGLOBIN 11.4 g/dL (12.0-16.0); LYMPHOCYTES # (AUTO) 2.6 10^3/uL (1.5-3.5); LYMPHOCYTES % (AUTO) 19.8 %; MEAN CORPUSCULAR HEMOGLOBIN 31.5 pg (27.0-31.0); MEAN CORPUSCULAR HGB CONC 32.8 g/dL (32.0-36.0); MEAN CORPUSCULAR VOLUME 95.9 fL (81.0-99.0); MEAN PLATELET VOLUME 8.1 fL (7.9-10.8); MONOCYTES # (AUTO) 1.2 10^3/uL (0.0-1.0); MONOCYTES % (AUTO) 8.7 %; NEUTROPHILS # (AUTO) 9.5 10^3/uL (1.5-6.6); NEUTROPHILS % (AUTO) 71.1 %; PLT - PLATELET COUNT 248 10^3/uL (130-450); RED BLOOD COUNT 3.61 10^6/uL (4.20-5.40); RED CELL DISTRIBUTION WIDTH 13.7 % (12.0-15.0); WHITE BLOOD COUNT 13.3 x10^3/uL (4.8-10.8)
[2018-09-23 05:36] LABS: KETONES, SERUM (ACETEST) NEGATIVE (NEGATIVE)
[2018-09-23 05:46] LABS: BUN - BLOOD UREA NITROGEN 6 mg/dL (6-20); CALCIUM 8.1 mg/dL (8.5-10.3); CARBON DIOXIDE - CO2 22 mmol/L (21-32); CHLORIDE 109 mmol/L (101-111); CREATININE 0.5 mg/dL (0.4-1.0); GFR - MDRD 140 (>89); GLUCOSE 196 mg/dL (70-100); PHOSPHORUS 1.6 mg/dL (2.5-4.6); SODIUM 140 mmol/L (135-145)
[2018-09-23] MEDS: POTASSIUM CHLOR 10 MEQ/100 ML 10 MEQ/100 ML BAG IV SCH ×4 (07:31→10:37)
[2018-09-23] MEDS ORDERED: POTASSIUM PHOSPHATE 15 MMOL in SODIUM CHLORIDE 0.9% 250 ML IV ONE (08:00)
[2018-09-23] MEDS: SODIUM CHLORIDE FLUSH 0.9% 10 ML SYRINGE IVP PRN (09:02)
[2018-09-23] MEDS: PANTOPRAZOLE 40 MG VIAL IVP SCH (09:02)
[2018-09-23] MEDS: cefTRIAXone 1 GM in SODIUM CHLORIDE 0.9% MINIBAG 100 ML IV SCH (09:10)
[2018-09-23] MEDS: HEPARIN 5,000 UNIT/ML VIAL SUBQ SCH ×2 (09:16→21:06)
[2018-09-23] MEDS ORDERED: DORZOLAMIDE 2% OPHTH DROPS RIGHTEYE SCH (11:00)
[2018-09-23] MEDS ORDERED: TIMOLOL 0.5% OPHTH DROPS RIGHTEYE SCH (11:00)
[2018-09-23] MEDS ORDERED: INSULIN REGULAR HUMAN 100 UNIT/1 ML 10 ML MDV SUBQ ONE (15:04)
--- NOTE | 2018-09-23 16:43 | PROVIDER PROGRESS NOTE ---
Assessment/Plan - Problem List (1) Uncontrolled insulin dependent type 1 diabetes mellitus Assessment/Plan: iv Insulin drip stopped, her Insulin pump started and her glu levels went to 490's. Will ask Diabetic wheel aligner from [facility] [place], to do consult. Will advance diet with each meal. (2) Urinary tract infection Assessment/Plan: Continue antibiotics, and will transition to po antibiotic if she is not nauseated with food intake. (3) Dehydration Assessment/Plan: Resolved with iv hydration. (4) LAURA (acute kidney injury) Assessment/Plan: Resolved with iv hydration (5) Lethargic Assessment/Plan: Resolved (6) SIRS (systemic inflammatory response syndrome) Assessment/Plan: Resolved (7) DKA (diabetic ketoacidoses) Qualifiers: Diabetes mellitus type: type 1 Diabetes mellitus complication detail: without coma Qualified Code(s): E10.10 - Type 1 diabetes mellitus with ketoacidosis without coma Assessment/Plan: Resolved with neg serum ketones today - Current Meds Current Meds: Current Medications Generic Name Dose Route Start Last Admin Trade Name Freq PRN Reason Stop Dose Admin Dorzolamide HCl 1 drops 09/23/18 11:00 09/23/18 11:40 Trusopt 2% Ophth Drops RIGHTEYE 1 drops BID FERCHO Administration Heparin Sodium (Porcine) 5,000 unit 09/21/18 21:00 09/23/18 09:16 SUBQ 5,000 unit BID FERCHO Administration Ceftriaxone Sodium 1 gm/ 100 mls @ 200 mls/hr 09/21/18 14:14 09/23/18 09:40 Sodium Chloride IV Infused DAILY FERCHO Infusion Sodium Phosphate 15 mmol/ 255 mls @ 41 mls/hr 09/21/18 19:47 09/22/18 03:31 Sodium Chloride IV Infused PRN PRN Infusion For phosp<2.5 Ondansetron HCl 4 mg 09/21/18 15:22 09/22/18 06:23 Zofran Inj IVP 4 mg Q1HR PRN Administration Nausea / Vomiting Pantoprazole Sodium 40 mg 09/21/18 21:00 09/23/18 09:02 Protonix IVP 40 mg BID FERCHO Administration Prochlorperazine Edisylate 10 mg 09/21/18 14:10 09/22/18 09:18 Compazine Inj IVP 10 mg Q6HR PRN Administration Nausea / Vomiting Sodium Chloride 10 ml 09/21/18 17:00 09/23/18 10:36 Normal Saline Flush 0.9% IVP Not Given 0100,0900,1700 [facility] Sodium Chloride 10 ml 09/21/18 14:10 09/23/18 09:02 Normal Saline Flush 0.9% IVP 20 ml PRN PRN Administration NEEDED PER PROVIDER ORDERS Timolol Maleate 1 drops 09/23/18 11:00 09/23/18 11:40 Timoptic 0.5% Ophth Drops RIGHTEYE 1 drops BID FERCHO Administration - Lab Result Fish Bone Diagrams: 09/23/18 04:50 09/23/18 04:50 - Additional Planning My Orders: My Active Orders 09/23/18 11:00 Dorzolamide 2% Ophth Drops [Trusopt 2% Ophth Drops] 1 drops RIGHTEYE BID Timolol 0.5% Ophth Drops [Timoptic 0.5% Ophth Drops] 1 drops RIGHTEYE BID 09/23/18 15:05 Diabetic Education [RC] ONCE 09/23/18 Dinner DIET [Soft (Low Fiber) Diet] [DIET] 09/24/18 05:00 KETONES, SERUM (ACETEST) [CHEM] DAILYLAB Subjective - Subjective Patient Reports: Feeling Better, Other (Less nauseated and less lethargic) Nursing Reports: Other (Tolerated po clear fluids for breakfast) Objective Vital Signs: Vital Signs - 24 hr 09/22/18 09/22/18 09/22/18 17:00 18:00 19:00 Temperature Heart Rate [ 93 84 85 Monitoring electrodes] Respiratory 14 14 15 Rate Blood Pressure 122/71 115/61 110/56 L [Right Brachial artery] O2 Saturation 99 99 98 09/22/18 09/22/18 09/22/18 20:00 21:00 22:00 Temperature 37.4 C 37.4 C Heart Rate [ 89 90 90 Monitoring electrodes] Respiratory 16 16 16 Rate Blood Pressure 99/53 L 113/61 127/71 [Right Brachial artery] O2 Saturation 97 97 98 09/22/18 09/23/18 09/23/18 23:00 00:00 01:00 Temperature 37.4 C Heart Rate [ 89 91 85 Monitoring electrodes] Respiratory 16 16 14 Rate Blood Pressure 113/62 116/61 105/54 L [Right Brachial artery] O2 Saturation 97 97 98 09/23/18 09/23/18 09/23/18 02:00 03:00 04:00 Temperature 37.2 C Heart Rate [ 84 88 94 Monitoring electrodes] Respiratory 16 15 16 Rate Blood Pressure 116/68 128/70 129/77 [Right Brachial artery] O2 Saturation 98 98 98 09/23/18 09/23/18 09/23/18 05:00 06:00 07:00 Temperature Heart Rate [ 84 80 79 Monitoring electrodes] Respiratory 9 L 11 L 9 L Rate Blood Pressure 109/71 107/66 118/79 [Right Brachial artery] O2 Saturation 97 97 97 09/23/18 09/23/18 09/23/18 08:00 08:16 09:00 Temperature 36.7 C Heart Rate [ 79 93 Monitoring electrodes] Respiratory 12 17 Rate Blood Pressure 117/75 118/78 [Right Brachial artery] O2 Saturation 98 100 09/23/18 09/23/18 09/23/18 10:00 11:00 12:00 Temperature Heart Rate [ 88 90 89 Monitoring electrodes] Respiratory 16 15 24 Rate Blood Pressure 128/47 L 134/80 H 134/80 H [Right Brachial artery] O2 Saturation 100 09/23/18 09/23/18 09/23/18 13:00 13:55 14:00 Temperature 36.9 C Heart Rate [ 87 91 Monitoring electrodes] Respiratory 17 15 Rate Blood Pressure 111/67 121/69 [Right Brachial artery] O2 Saturation 100 99 09/23/18 16:00 Temperature Heart Rate [ 89 Monitoring electrodes] Respiratory 19 Rate Blood Pressure 153/89 H [Right Brachial artery] O2 Saturation 100 Oxygen O2 Source Room air I&O (Last 24 Hrs): Intake and Output Totals x24h 09/21/18 09/22/18 09/23/18 23:59 23:59 23:59 Intake Total 3426.916 3778.303 2767.892 Output Total 300 2185 1650 Balance 3126.916 6379.107 0795.892 General: Alert, Oriented x3 HEENT: Mucous membr. moist/pink, Other (apears tired) Neck: Supple, No JVD Neuro: Non Focal Cardiovascular: Regular rate Respiratory: No respiratory distress Abdomen: Soft, No tenderness, Other (diminished bowel sounds) Extremities: No edema - Results Results: Laboratory Results WBC 13.3 x10^3/uL (4.8-10.8) H 09/23/18 04:50 RBC 3.61 10^6/uL (4.20-5.40) L 09/23/18 04:50 Hgb 11.4 g/dL (12.0-16.0) L 09/23/18 04:50 Hct 34.7 % (37.0-47.0) L 09/23/18 04:50 MCV 95.9 fL (81.0-99.0) 09/23/18 04:50 MCH 31.5 pg (27.0-31.0) H 09/23/18 04:50 MCHC 32.8 g/dL (32.0-36.0) 09/23/18 04:50 RDW 13.7 % (12.0-15.0) 09/23/18 04:50 Plt Count 248 10^3/uL (130-450) 09/23/18 04:50 MPV 8.1 fL (7.9-10.8) 09/23/18 04:50 Neut # (Auto) 9.5 10^3/uL (1.5-6.6) H 09/23/18 04:50 Lymph # (Auto) 2.6 10^3/uL (1.5-3.5) 09/23/18 04:50 [place] # (Auto) 1.2 10^3/uL (0.0-1.0) H 09/23/18 04:50 Eos # (Auto) 0.0 10^3/uL (0.0-0.7) 09/23/18 04:50 Baso # (Auto) 0.0 10^3/uL (0.0-0.1) 09/23/18 04:50 Absolute Nucleated RBC 0.00 x10^3/uL 09/23/18 04:50 Nucleated RBC % 0.0 /100WBC 09/23/18 04:50 Manual Slide Review Indicated 09/21/18 13:04 WBC Morphology TOXIC GRANULATION (NORMAL) 09/21/18 13:04 Platelet Estimate NORMAL (130-450,000) (NORMAL) 09/21/18 13:04 Platelet Morphology NORMAL APPEARANCE (NORMAL) 09/21/18 13:04 RBC Morph Micro Appear NORMAL APPEARANCE (NORMAL) 09/21/18 13:04 VBG pH 7.295 (7.31-7.41) L 09/21/18 16:15 VBG pCO2 27.9 mmHg (41-51) L 09/21/18 16:15 VBG pO2 136.0 mmHg (25-47) H 09/21/18 16:15 VBG HCO3 13.6 mmol/L (23-28) L 09/21/18 16:15 VBG Total CO2 14.0 mmol/L (24-29) L 09/21/18 16:15 VBG O2 Saturation 99.0 % (60-80) H 09/21/18 16:15 VBG Base Excess -13.0 mmol/L (-2 - +2) L 09/21/18 16:15 Sodium 140 mmol/L (135-145) 09/23/18 04:50 Potassium 3.2 mmol/L (3.5-5.0) L 09/23/18 04:50 Chloride 109 mmol/L (101-111) 09/23/18 04:50 Carbon Dioxide 22 mmol/L (21-32) 09/23/18 04:50 Anion Gap 9.0 (6-13) 09/23/18 04:50 BUN 6 mg/dL (6-20) 09/23/18 04:50 Creatinine 0.5 mg/dL (0.4-1.0) 09/23/18 04:50 Estimated GFR (MDRD) 140 (>89) 09/23/18 04:50 Glucose 196 mg/dL (70-100) H 09/23/18 04:50 POC Whole Bld Glucose 457 mg/dL (70 - 100) H 09/23/18 15:47 Glycated Hemoglobin 12.2 % (4.6-6.2) H 09/21/18 14:25 Estim Average Glucose 303 (70-100) H 09/21/18 14:25 Lactic Acid 1.2 mmol/L (0.5-2.2) 09/21/18 16:15 Calcium 8.1 mg/dL (8.5-10.3) L 09/23/18 04:50 Phosphorus 1.6 mg/dL (2.5-4.6) L 09/23/18 04:50 Magnesium 1.7 mg/dL (1.7-2.8) 09/23/18 04:50 Total Bilirubin 1.6 mg/dL (0.2-1.0) H 09/21/18 13:04 AST 20 IU/L (10-42) 09/21/18 13:04 ALT 20 IU/L (10-60) 09/21/18 13:04 Alkaline Phosphatase 81 IU/L (42-121) 09/21/18 13:04 Total Protein 8.5 g/dL (6.7-8.2) H 09/21/18 13:04 Albumin 2.7 g/dL (3.2-5.5) L 09/23/18 04:50 Globulin 3.9 g/dL (2.1-4.2) 09/21/18 13:04 Albumin/Globulin Ratio 1.2 (1.0-2.2) 09/21/18 13:04 Triglycerides 101 mg/dL (-149) 09/21/18 16:15 Lipase 22 U/L (22-51) 09/21/18 13:04 Serum HCG, Qual NEGATIVE 09/21/18 13:04 Urine Color YELLOW 09/21/18 17:45 Urine Clarity CLOUDY (CLEAR) 09/21/18 17:45 Urine pH 6.0 PH (5.0-7.5) 09/21/18 17:45 Ur Specific [place] 1.025 (1.002-1.030) 09/21/18 17:45 Urine Protein TRACE mg/dL (NEGATIVE) 09/21/18 17:45 Urine Glucose (UA) >=1000 mg/dL (NEGATIVE) H 09/21/18 17:45 Urine Ketones >=80 mg/dL (NEGATIVE) H 09/21/18 17:45 Urine Occult Blood LARGE (NEGATIVE) H 09/21/18 17:45 Urine Nitrite NEGATIVE (NEGATIVE) 09/21/18 17:45 Urine Bilirubin NEGATIVE (NEGATIVE) 09/21/18 17:45 Urine Urobilinogen 0.2 (NORMAL) E.U./dL (NORMAL) 09/21/18 17:45 Ur Leukocyte Esterase TRACE (NEGATIVE) H 09/21/18 17:45 Urine RBC 6-10 /HPF (0-5) H 09/21/18 17:45 Urine WBC 6-10 /HPF (0-5) H 09/21/18 17:45 Ur Squamous Epith Cells MOD Squamous (<= Few) H 09/21/18 17:45 Urine Bacteria Few /HPF (None Seen) 09/21/18 17:45 Urine Casts 11-25 Hyaline Casts /LPF 09/21/18 17:45 Ur Microscopic Review INDICATED 09/21/18 17:45 Urine Culture Comments NOT INDICATED 09/21/18 17:45 Nasal Screen MRSA (PCR) NEGATIVE (NEGATIVE) 09/21/18 16:15 Urine Opiates Screen NEGATIVE (NEGATIVE) 09/21/18 17:45 Ur Oxycodone Screen NEGATIVE (NEGATIVE) 09/21/18 17:45 Urine Methadone Screen NEGATIVE (NEGATIVE) 09/21/18 17:45 Ur Propoxyphene Screen NEGATIVE (NEGATIVE) 09/21/18 17:45 Ur Barbiturates Screen NEGATIVE (NEGATIVE) 09/21/18 17:45 Ur Tricyclics Screen NEGATIVE (NEGATIVE) 09/21/18 17:45 Ur Phencyclidine Scrn NEGATIVE (NEGATIVE) 09/21/18 17:45 Ur Amphetamine Screen NEGATIVE (NEGATIVE) 09/21/18 17:45 U Methamphetamines Scrn NEGATIVE (NEGATIVE) 09/21/18 17:45 U Benzodiazepines Scrn NEGATIVE (NEGATIVE) 09/21/18 17:45 Urine Cocaine Screen NEGATIVE (NEGATIVE) 09/21/18 17:45 U Cannabinoids Screen NEGATIVE (NEGATIVE) 09/21/18 17:45 Serum Ketones NEGATIVE (NEGATIVE) 09/23/18 04:50 Influenza A (Rapid) Negative (Negative) 09/21/18 16:15 Influenza B (Rapid) Negative (Negative) 09/21/18 16:15 Sepsis Event Note (H) - Evaluation Possible source of Sepsis: positive: Genitourinary - Sepsis Criteria Sepsis Criteria: Recorded Heart Rate greater than 90 bpm, WBC count greater than 12,000 or less than 4000, STABLE MANAGER: altered consciousness (unrelated to primary neuro pathology)
[2018-09-23 17:55] LABS: HB2 TOTAL 12.1 g/dL; HEMOGLOBIN A1C 1.32 g/dL; HEMOGLOBIN A1C % 12.1 % (4.6-6.2)
[2018-09-23] MEDS ORDERED: INSULIN ASPART 300 UNIT/3 ML PEN SUBQ SCH (18:00)
[2018-09-23] MEDS ORDERED: INSULIN GLARGINE 27 UNIT SQ SCH (21:00)
[2018-09-23] MEDS ORDERED: INSULIN GLARGINE 300 UNIT/3 ML PEN SUBQ SCH (21:00)
--- NOTE | 2018-09-23 21:18 | Discharge Plan ---
Discharge Plan Disposition: 01 Home, Self Care Condition: Stable Diet: Diabetic Activity Restrictions: Activity as Tolerated Shower Restrictions: No Driving Restrictions: No Weight Bearing: Full Weight No Smoking: If you smoke, Please STOP! Call for help. Follow-up with: Morro Harden ARNP [Physician No Access] -
[2018-09-23] MEDS ORDERED: ONDANSETRON ODT 4 MG TABLET TL PRN (21:19)
--- NOTE | 2018-09-23 21:27 | DISCHARGE SUMMARY ---
Discharge Summary Admit Date: 09/21/18 Discharge Date: 09/23/18 Discharging Provider: Alex Malonehotu Code Status: Attempt Resuscitation Condition at Discharge: Stable Discharge Disposition: 01 Home, Self Care Discharge Facility Name: [facility] - DIAGNOSES Admission Diagnoses: DKA SIRS Suspected underlying bladder infection as patient has history of cystitis and on keflex Acute Renal Insufficiency Encephalopathy 2/2 DKA Uncontrolled type 1 DM on insulin pump Discharge Diagnoses with Status of Each Condition: DKA: Resolved SIRS Suspected underlying bladder infection as patient has history of cystitis and on keflex. Resolved Acute Renal Insufficiency: Resolved Encephalopathy 2/2 DKA: Resolved Uncontrolled type 1 DM on insulin pump: Chronic. Patient seen by life skills educator. Pump verified to be functioning well. Patient will resume use. - CONSULTS | PROCEDURES Consultations: Pediatric Hospitalist [facility] - HOSPITAL COURSE Hospital Course: Patient was maintained on insulin drip for 2 days in the ICU. Her anion gap closed by the night of the first day. However because she was still nauseous and not eating adequately the insulin dril was continue at a dose ranging between 0 and 5 units per hour while on D5 half normal. Her mentation and nausea improved/ resolved by day 3 of her stay. She ate 25% of the food given to her. She said she generally doesn't eat much and she also didn't not find the hospital food very appealing. She met with the life skills educator Yoli Renee as noted below Diabetes Education: I met with Jeanne this AM. She uses a AccuCheck spirit insulin pump, and test strips. She bolus' 2-3x/d and tests 3-4x/d. She has no trouble getting rx or supplies. Her Endo provider Clarence BASSETT had tried to get her a dexcom CGM but her copay was more than she could afford at $300/ 3 mo. She was told [employer] could not bill AND Medicaid. She does not have her pump or Bg meter here and agrees to ask her to bring in. Her pump is no longer being made and she has no technical support. She likes her pump and has no indication it is not working; sometimes gets low alarm or runs out of insulin. She gets "occlusion" alarm on occasion; on removal notes cannula bent. 1-2x/month "maybe". She does not use the bolus wizard on her pump- "just figures out the math". "1u for 25 points above 150 and 2u per 1 carb" (clarified 1 carb=15g). she gives herself a "B" grade on carb counting. DANYELLE Harden suggested she eat more CHO- we discussed this. She "grazes". I asked how much of the time she doses what she eats; she cannot say. She thinks she takes correction dose "but may miss some as she is very busy caring for her children". Her infant has medical issues. She felt high BG for 48hr prior to admission and started bolusing with injected humalog, pump delivering basal. When she woke up vomiting she came to ER. Reinforced this self care. I explained that when someone comes in in DKA we try to figure out why. Often not enough insulin being taken. BG corrected after insulin gtt 5.44u/hr initiated 09/21 at 1600, dose titrated down to 1.5u/hr and DC'd 09/23 at 1030. We agree to look at pump history and problem solve insulin administration. I called [employer] and asked for them to look into her copay for CGM; should be $0 on medicaid. FU this afternoon. Insulin drip was discontinued today 09/23/18. She was asked to start using her pump. However, after eating and with the pump in place it was noted that her blood glucose kept increasing through out the day. further examination showed that the cannula was kinked. At such she was not getting the necessary insulin. He blood glucose was thus addressed with regular insulin. She received 7 units subq in the afternoon and the evening with her blood glucose saying in the 200's She did not have the supplies needed to set up her pump in the hospital. Her and there two children were at bedside. She reported feeling well she was no longer nauseous and greatly wished to go home. It would have taken an hour for her to go home and return with the supplies for her pump. Consequently she was given 27 units of lantus around 9pm. Her blood glucose was 250. She has relied on administering lantus and sliding scale insulin prior to getting an insulin pump and will do that in the interim until her pump is in place and functioning as expected She was discharged home with the understanding she had enough time to set up and start using her insulin pump. I advised them to return to the ED if she was nauseous, vomiting again or lethargic. They expressed understanding She has an appointment set up with Morro Harden in [facility] who manages her diabetes. I asked them to call and see if she can be seen withing 7-10 days. If not, she will keep the 10/09/18 appointment. Will call in Cipro 250 mg to be taken bid X 3 days to her pharmacy - ALLERGIES Allergies/Adverse Reactions: Allergies Allergy/AdvReac Type Severity Reaction Status Date / Time No Known Drug Allergies Allergy Verified 09/21/18 13:27 - MEDICATIONS Home Medications: Ambulatory Orders Medication Instructions Recorded Confirmed Dorzolamide/Timolol Ophth Soln 1 drops OP BID 04/03/17 09/21/18 [Cosopt] Insulin Glargine [Lantus] 27 units SQ PRN PRN 04/03/17 09/21/18 Insulin Lispro [Humalog] 100 unit SQ DAILY 04/03/17 09/21/18 Ondansetron Odt [Zofran Odt] 4 mg TL Q6HR PRN #10 tablet 04/05/17 09/21/18 Ciprofloxacin HCl 250 mg PO BID #6 tablet 09/24/18 - PHYSICAL EXAM AT DISCHARGE General Appearance: positive: No acute distress Eyes Bilateral: positive: Normal inspection, PERRL, EOMI ENT: positive: ENT inspection nml, No signs of dehydration Neck: positive: Nml inspection, No JVD, Trachea midline Respiratory: positive: Chest non-tender, No respiratory distress, Breath sounds nml Cardiovascular: positive: Regular rate & rhythm Abdomen: positive: Non-tender, No distention Back: positive: Nml inspection Skin: positive: Color nml, No rash, Warm Extremities: positive: Non-tender, Nml appearance, No pedal edema Neurologic/Psychiatric: positive: Oriented x3 - LABS Result Diagrams: 09/23/18 04:50 09/23/18 04:50 - SEPSIS Possible source of Sepsis: Genitourinary Sepsis Criteria: Recorded Heart Rate greater than 90 bpm, WBC count greater than 12,000 or less than 4000, FORMS DESIGNER: altered consciousness (unrelated to primary neuro pathology) - QUALITY (Female Hip Fx Only) Was patient sent home on osteoporosis medication?: No - FOLLOW UP Follow Up: Morro Harden on 10/09/18 - TIME SPENT Time Spent in Discharge (Minutes): 45
[2018-09-23 22:11] VITALS: BP 116/77
[2018-09-24] MEDS ORDERED: INSULIN LISPRO 100 UNIT SQ SCH (09:00)
== END 2018-09-23 22:20 | disposition home or self-care (01) | DRG 871 ==
LOC: ED 12:35 → ICU 14:10
PROVIDERS: ADMIT Family Medicine; ATTEND Internal Medicine
DX: A41.9 Sepsis, unspecified organism (principal); E10.10 Type 1 diabetes mellitus with ketoacidosis without coma; N30.90 Cystitis, unspecified without hematuria; E86.0 Dehydration; N28.9 Disorder of kidney and ureter, unspecified; Z96.41 Presence of insulin pump (external) (internal); Z79.4 Long term (current) use of insulin; Z87.440 Personal history of urinary (tract) infections
CPT/HCPCS: 36415; 80048; 80053; 80306; 81001; 82009; 82040; 82803; 83036; 83605; 83690; 83735; 84100; 84478; 84703; 85025; 87150; 87275; 87276; 93005; 96361; 96374; 99284; A9270; J1170; J1815; 80307; 80320; 81003; 82947; 87086; 99283

== ENCOUNTER 2019-02-20 09:15 | Inpatient (IN) | payer OTHER, MEDICAID ==
[2019-02-20] MEDS ORDERED: cefTRIAXone 1 GM in SODIUM CHLORIDE 0.9% MINIBAG 100 ML IV STA (09:40)
[2019-02-20] MEDS ORDERED: INSULIN REGULAR HUMAN 100 UNIT in SODIUM CHLORIDE 0.9% 100ML 99 ML IV STA (09:40)
[2019-02-20] MEDS ORDERED: SODIUM CHLORIDE 0.9% 1,000 ML IV ONE ×3 (09:40→21:59)
[2019-02-20 09:43] LABS: VBG PCO2 18.3 mmHg (41-51); VBG PH 6.735 (7.31-7.41); VBG PO2 88.1 mmHg (25-47)
[2019-02-20 09:44] LABS: VBG BASE EXCESS -32.9 mmol/L (-2 - +2)
--- NOTE | 2019-02-20 09:44 | ED Physician Documentation ---
PD HPI DYSPNEA - Stated complaint Stated Complaint: SOA - Chief complaint Chief Complaint: Resp - History obtained from History obtained from: Family - History of Present Illness Timing - onset: How many days ago (2) Timing - onset during: Rest Timing - duration: Days (2) Timing - details: Gradual onset, Still present Inciting event(s): Other (diabetes) Associated symptoms: Cough. No: Fever Similar symptoms before: Diagnosis (DKA) Recently seen: Not recently seen - Additional information Additional information: 38-year-old type I diabetic presents with shortness of breath and altered level of consciousness. She has had DKA. Previously and her sugars are running high. Her indicates she has been sick for 2 days. 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 HEENT: Detached retina repair - Present Medications Home Medications: Ambulatory Orders Medication Instructions Recorded Confirmed Dorzolamide/Timolol Ophth Soln 1 drops OP BID 04/03/17 09/21/18 [Cosopt] Insulin Glargine [Lantus] 27 units SQ PRN PRN 04/03/17 09/21/18 Insulin Lispro [Humalog] 100 unit SQ DAILY 04/03/17 09/21/18 Ondansetron Odt [Zofran Odt] 4 mg TL Q6HR PRN #10 tablet 04/05/17 09/21/18 Ciprofloxacin HCl 250 mg PO BID #6 tablet 09/24/18 - Allergies Allergies/Adverse Reactions: Allergies Allergy/AdvReac Type Severity Reaction Status Date / Time No Known Drug Allergies Allergy Verified 09/21/18 13:27 - Social History Does the pt smoke?: No Smoking Status: Never smoker Does the pt drink ETOH?: No Does the pt have substance abuse?: No PD ED PE NORMAL - Vitals Vital signs reviewed: Yes - General General: Other (Thin female with closed eyes appears pale with parched lips decreased LOC with slurring of the speech ) - HEENT HEENT: Atraumatic, PERRL, EOMI, Other (TM's are erythematous bilaterally ) - Neck Neck: Supple, no meningeal sign, No bony TTP - Cardiac Cardiac: RRR, No murmur - Respiratory Respiratory: No respiratory distress, Clear bilaterally - Abdomen Abdomen: Soft, Non tender - Back Back: No CVA TTP, No spinal TTP - Derm Derm: Normal color, Warm and dry, No rash - Extremities Extremities: No deformity, No edema - Neuro Neuro: fabrics and material cutter 2-12 intact, No motor deficit, No sensory deficit, Other (speech is quiet, slow, deliberate and with some dysarthria from dry lips ) Eye Opening: To Voice Motor: Obeys Commands Verbal: Confused GCS Score: 13 - Psych Psych: Other (mood is withdrawn affect is flat) Results - Vitals Vitals: Vital Signs - 24 hr 02/20/19 02/20/19 02/20/19 09:19 10:48 11:05 Temperature 36 C L Heart Rate 97 89 88 Respiratory 22 19 17 Rate Blood Pressure 92/53 L 93/50 L 94/52 L O2 Saturation 100 100 100 Oxygen O2 Source Room air - EKG (time done) 0933 Rate: Rate (enter#) (93) Rhythm: LILO Compare to prior EKG: Changed from prior EKG (SPT 09-21-18 LILO has developed ) Computer interpretation: Agree with computer - Labs Labs: Laboratory Tests 02/20/19 02/20/19 02/20/19 09:36 09:36 09:36 WBC RBC Hgb Hct MCV MCH MCHC RDW Plt Count MPV Neut # (Auto) Lymph # (Auto) [place] # (Auto) Eos # (Auto) Baso # (Auto) Absolute Nucleated RBC Nucleated RBC % Manual Slide Review RBC Morph Micro Appear VBG pH 6.735 L VBG pCO2 18.3 L VBG pO2 88.1 H VBG HCO3 2.4 L VBG Total CO2 3.0 L VBG O2 Saturation 90.5 H VBG Base Excess -32.9 L Sodium 139 Potassium 6.6 H* Chloride 105 Carbon Dioxide < 6 L* Anion Gap 28.0 H BUN 25 H Creatinine 1.6 H Estimated GFR (MDRD) 36 L Glucose 774 H* Lactic Acid 2.9 H Calcium 8.9 Total Bilirubin 2.1 H AST 26 ALT 21 Alkaline Phosphatase 83 Total Protein 6.8 Albumin 3.5 Globulin 3.3 Albumin/Globulin Ratio 1.1 Lipase 54 H Urine Color Urine Clarity Urine pH Ur Specific [place] Urine Protein Urine Glucose (UA) Urine Ketones Urine Occult Blood Urine Nitrite Urine Bilirubin Urine Urobilinogen Ur Leukocyte Esterase Urine RBC Urine WBC Ur Squamous Epith Cells Urine Bacteria Ur Microscopic Review Urine Culture Comments Urine HCG, Qual Serum Ketones MODERATE H 02/20/19 02/20/19 09:36 09:39 WBC 25.6 H RBC 4.08 L Hgb 13.5 Hct 46.5 MCV 114.0 H MCH 33.1 H MCHC 29.0 L RDW 14.8 Plt Count 399 MPV 10.3 Neut # (Auto) 21.8 H Lymph # (Auto) 1.4 L [place] # (Auto) 1.5 H Eos # (Auto) 0.0 Baso # (Auto) 0.1 Absolute Nucleated RBC 0.00 Nucleated RBC % 0.0 Manual Slide Review Indicated RBC Morph Micro Appear 1+ ANISOCYTOSIS VBG pH VBG pCO2 VBG pO2 VBG HCO3 VBG Total CO2 VBG O2 Saturation VBG Base Excess Sodium Potassium Chloride Carbon Dioxide Anion Gap BUN Creatinine Estimated GFR (MDRD) Glucose Lactic Acid Calcium Total Bilirubin AST ALT Alkaline Phosphatase Total Protein Albumin Globulin Albumin/Globulin Ratio Lipase Urine Color YELLOW Urine Clarity CLEAR Urine pH 6.0 Ur Specific [employer] 1.025 Urine Protein 30 H Urine Glucose (UA) 500 H Urine Ketones >=80 H Urine Occult Blood TRACE-LYSE Urine Nitrite NEGATIVE Urine Bilirubin NEGATIVE Urine Urobilinogen 0.2 (NORMAL) Ur Leukocyte Esterase NEGATIVE Urine RBC 0-5 Urine WBC 0-3 Ur Squamous Epith Cells NONE SEEN Urine Bacteria Rare Ur Microscopic Review INDICATED Urine Culture Comments NOT INDICATED Urine HCG, Qual NEGATIVE Serum Ketones Procedures - IVC sono (time) 0935 Bedside IVC sono: IVC measures (cm) (0.83), IVC collapsed c insp (cm) (complete), Dehydration (est 2 liters deficit) PD MEDICAL DECISION MAKING - ED course Complexity details: reviewed results, re-evaluated patient, considered differential, d/w patient, d/w family ED course: 38-year-old brittle diabetic female presents today with 2 days of illness is found to have ketoacidosis, dehydrated, Otitis on exam and she is administered saline and placed on insulin drip. She is confused and unable to give adequate history. She denies any URI symptoms. Departure - Departure Disposition: [facility] DC/Xfer Clinical Impression: LAURA (acute kidney injury), Dehydration, moderate DKA (diabetic ketoacidoses) Qualifiers: Diabetes mellitus type: type 1 Diabetes mellitus complication detail: without coma Qualified Code(s): E10.10 - Type 1 diabetes mellitus with ketoacidosis without coma Otitis media Qualifiers: Otitis media type: suppurative Chronicity: acute Laterality: bilateral Recurrence: non-recurrent Spontaneous tympanic membrane rupture: without spontaneous rupture Qualified Code(s): H66.003 - Acute suppurative otitis media without spontaneous rupture of ear drum, bilateral
[2019-02-20 09:50] LABS: BASOPHILS # (AUTO) 0.1 10^3/uL (0.0-0.1); BASOPHILS % (AUTO) 0.5 %; HGB - HEMOGLOBIN 13.5 g/dL (12.0-16.0); LYMPHOCYTES # (AUTO) 1.4 10^3/uL (1.5-3.5); LYMPHOCYTES % (AUTO) 5.4 %; MEAN CORPUSCULAR HEMOGLOBIN 33.1 pg (27.0-31.0); MEAN PLATELET VOLUME 10.3 fL (7.9-10.8); MONOCYTES # (AUTO) 1.5 10^3/uL (0.0-1.0); MONOCYTES % (AUTO) 5.9 %; NEUTROPHILS # (AUTO) 21.8 10^3/uL (1.5-6.6); NEUTROPHILS % (AUTO) 85.3 %; PLT - PLATELET COUNT 399 10^3/uL (130-450); RED BLOOD COUNT 4.08 10^6/uL (4.20-5.40); RED CELL DISTRIBUTION WIDTH 14.8 % (12.0-15.0); WHITE BLOOD COUNT 25.6 x10^3/uL (4.8-10.8)
[2019-02-20 09:57] LABS: GLUCOSE, URINE (UA) 500 mg/dL (NEGATIVE); KETONES,URINE (UA) >=80 mg/dL (NEGATIVE); LEUKOCYTE ESTERASE, URINE NEGATIVE (NEGATIVE); NITRITE,URINE NEGATIVE (NEGATIVE); OCCULT BLOOD,URINE TRACE-LYSE (NEGATIVE); PROTEIN,URINE 30 mg/dL (NEGATIVE); UROBILINOGEN,URINE 0.2 (NORMAL) E.U./dL (NORMAL)
[2019-02-20 10:00] LABS: CLARITY,URINE CLEAR (CLEAR)
[2019-02-20 10:04] LABS: BILIRUBIN,URINE NEGATIVE (NEGATIVE); HCG UR QUAL NEGATIVE; ICTOTEST,URINE NEGATIVE
[2019-02-20 10:06] LABS: ALBUMIN 3.5 g/dL (3.2-5.5); ALBUMIN/GLOBULIN RATIO 1.1 (1.0-2.2); ALKALINE PHOSPHATASE 83 IU/L (42-121); ALT ALANINE AMINOTRANSFERASE 21 IU/L (10-60); AST ASPARTATE AMINOTRANSFERASE 26 IU/L (10-42); BILIRUBIN,TOTAL 2.1 mg/dL (0.2-1.0); BUN - BLOOD UREA NITROGEN 25 mg/dL (6-20); CALCIUM 8.9 mg/dL (8.5-10.3); CHLORIDE 105 mmol/L (101-111); CREATININE 1.6 mg/dL (0.4-1.0); GFR - MDRD 36 (>89); LIPASE 54 U/L (22-51); SODIUM 139 mmol/L (135-145); TOTAL PROTEIN 6.8 g/dL (6.7-8.2)
[2019-02-20 10:07] LABS: CARBON DIOXIDE - CO2 < 6 mmol/L (21-32); GLUCOSE 774 mg/dL (70-100); KETONES, SERUM (ACETEST) MODERATE (NEGATIVE)
[2019-02-20 10:11] LABS: RBC MORPHOLOGY (MULTIPLE) 1+ ANISOCYTOSIS (NORMAL)
[2019-02-20 10:14] LABS: BACTERIA,URINE Rare /HPF (None Seen); RBC,URINE 0-5 /HPF (0-5); SQUAMOUS EPITHELIAL CELL,UR NONE SEEN (<= Few)
--- NOTE | 2019-02-20 10:32 | XRAY Report ---
Reason: soa Procedure Date: 02/20/2019 Accession Number: [id number] / [id number] Procedure: XR - Chest 1 View X-Ray CPT Code: 06561 FULL RESULT: EXAM: CHEST RADIOGRAPHY EXAM DATE: 02/20/2019 10:01 AM. CLINICAL HISTORY: Short of air. COMPARISON: None. TECHNIQUE: 1 view. FINDINGS: Lungs/Pleura: There is mild hazy left basilar opacity. No pleural effusion or pneumothorax. Mediastinum: Allowing for patient rotation, cardiomediastinal silhouette and pulmonary vasculature are within normal limits. Other: None. IMPRESSION: Mild hazy left basilar opacity, which may represent atelectasis or infiltrate. RADIA
[2019-02-20] MEDS ORDERED: ACETAMINOPHEN 325 MG TABLET PO PRN (11:53)
[2019-02-20] MEDS ORDERED: ONDANSETRON ODT 4 MG TABLET TL PRN (11:53)
[2019-02-20] MEDS ORDERED: SODIUM CHLORIDE 0.9% 1,000 ML IV SCH ×2 (12:00→16:38)
--- NOTE | 2019-02-20 12:03 | HISTORY & PHYSICAL EXAMINATION ---
Chief Complaint - Chief Complaint Chief Complaint: confusion since this morning w mumbling, lethargy History of Present Illness - Admitted From Admitted From:: Home/ER - History Obtained From Records Reviewed: Marichuy History obtained from: Patient, Marichuy, Dr. Moore Exam Limitations: none - History of Present Illness HPI Comment/Other: She is a diabetic type I since the age of 8. This is her fifth admission in her lifetime for DKA and dehydration. She is not from [facility]. 2 admissions have been for pump failure before she even came to live here. She was admitted March 2017 to our facility for nausea and dry heaves with diarrhea. No associated DKA then. She was then admitted September 2018, again for pump failure. Resulting in DKA. Even as we were getting ready to discharge her, she turned on her pump, and glucose started to rise throughout the few hours we were watching her. We found her to have a kink in her pump catheter. She has been seen at the [facility]. Yoli Beckford work with her in September to make sure that her insurance companies were communicating with the [employer] pest control service representative. She needed a supplier who could build both insurances so the patient would have no [id number] cost for her Dex[employer] CGM. They did attempt to call her back to see if everything was working okay on September 28. There is no phone call back. Her states that there is been more more tenseness in their marriage. She says that she has to focus on the kids and as such she neglects herself. He has to constantly remind her to check her sugars to then give herself insulin. She will actually forget for days at a time. She has not been on the pump for the last few days because there is a constant error message. She cannot be sure she is been getting her insulin. In addition to the rationale for not taking care of herself is that she has to focus on the kids, she also does not want to tell her things. She feels that she is holding him back in his career in the [employer]. So if she were to complain, become ill, it would then affect his career. She has refused outreach from the [employer] [place] their command structure do recognize she and he are struggling. She and the children were actually getting ready to fly to [place] in a week. They were going to spend some time in their home state. He was going to stay home. He is due to be in [place], [place] in August and then due to be deployed next summer. The patient now returns because she has been short of breath for the last 2 days. Gradually coming on. There is no cough, no fever, no rhinorrhea. She does not have a history of asthma or heart disease. In addition to the shortness of breath she started getting sleepier, slurred speech. She seemed to be making nonsensical statements this am. It seemed to him that she was tired, and not feeling well last night, but stable. This am, not making sense and he can't understand what she's saying other than she keeps on asking for water. As such her brought her to the emergency room. She was afebrile with a heart rate of 92, blood pressure 92/53. 100% saturating. She is able to follow commands but is just confused with a Bowdle Coma Scale of 13. Potassium was 6.6. BUN 25, creatinine 1.6. pH on the venous side is 6.735. White cell count is 25.6. MCV is 114. She has moderate serum ketones. Lactic acid is 2.9. She is now placed in the ICU for DKA with metabolic derangement, metabolic encephalopathy. 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 2 brothers are healthy. Her child is healthy but she also has 2 daughters from her 's first marriage living with them Living arrangement: At home Living Situation: With spouse/s.o. Social History Notes: From [place]. Is a [employer] dependent whose has his [place]. She never smoked. She rarely drinks alcohol. This is her first marriage. This is her son has been second marriage. They have 1 child together and she takes care of their child and his 2 daughters from his first marriage. She is a [id number] mom. - Substance History Use: Uses substance without health or social issues: NONE Abuse: Recurrent use of substance despite neg consequences: NONE Dependence: Experiences withdrawal or developed tolerances: NONE - POLST Patient has POLST: No POLST Status: Full Code Meds/Allgy - Home Medications Home Medications: Ambulatory Orders Medication Instructions Recorded Confirmed Dorzolamide/Timolol Ophth Soln 1 drops OP BID 04/03/17 09/21/18 [Cosopt] Insulin Glargine [Lantus] 27 units SQ PRN PRN 04/03/17 09/21/18 Insulin Lispro [Humalog] 100 unit SQ DAILY 04/03/17 09/21/18 Ondansetron Odt [Zofran Odt] 4 mg TL Q6HR PRN #10 tablet 04/05/17 09/21/18 Ciprofloxacin HCl 250 mg PO BID #6 tablet 09/24/18 - Allergies Allergies/Adverse Reactions: Allergies Allergy/AdvReac Type Severity Reaction Status Date / Time No Known Drug Allergies Allergy Verified 09/21/18 13:27 Review of Systems - Other Findings Other Findings: unable to be obtained in this barely reponsive female, keeps asking for water, and feels he can't say what she's like because she doesnt' let him know Prior Level of Functionality: Independent 38-year-old female who is a busy mother with 3 children at home. She drives, cleans house, pays bills. Is not described as having any disability other than intermittent illness for her diabetes is uncontrolled. Exam - Vital Signs Reviewed Vital Signs: Yes Vital Signs: Vital Signs x48h Temp Pulse Resp BP Pulse Ox 02/20/19 11:44 86 20 91/54 L 100 02/20/19 11:05 88 17 94/52 L 100 02/20/19 10:48 89 19 93/50 L 100 02/20/19 09:19 36 C L 97 22 92/53 L 100 - Physical Exam General Appearance: positive: Lethargic, Other (slender, tanned white female, who appears to have lost more weight since the last time we saw her, responds to voice and tries to answer but voice is low, uninteligible and she needs complete assist to get from ER gurney to ICU bed. Can't even lift her arms to reposition) Eyes Bilateral: positive: PERRL, EOMI ENT: positive: Dry mucous membranes (very, very dry with cracked lips) Neck: positive: No JVD Respiratory: positive: Chest non-tender. negative: Wheezes, Rales, Rhonchi Cardiovascular: positive: Regular rate & rhythm. negative: Gallop/S4, Friction rub Peripheral Pulses: positive: 1+ Abdomen: positive: No organomegaly, Nml bowel sounds, No distention. negative: Guarding, Rebound Skin: positive: Warm, Dry, Other (right lateral malleoul skin has healed ulcer) Extremities: positive: Non-tender, No pedal edema, Other (left tip of toe w ?pinpoint ulcer, dry, black) Neurologic/Psychiatric: positive: Other (generalized weakness and she can't move on her own, responds to voice, spontaneous vocalization, no focal deficit) Conclusion/Plan - Problem List (1) Metabolic encephalopathy Conclusion/Plan: secondary to DKA Type 1. Plan: Inpatient admission Anticipate 2 midnights. The 2 time she is been in this hospital she is been admitted for greater than 2 midnights Treat the cause of her encephalopathy which is the DKA check MUDDs (2) DKA (diabetic ketoacidoses) Conclusion/Plan: Cause in the past has been pump failure with elemente of noncompliance. today, her CXR is abnormal Plan: Place in ICU Insulin drip Aggressive IV fluid resuscitation with normal saline followed by D5 when her sugar gets below 200 Frequent blood checks and glucometer checks to assess our progress Qualifiers: Diabetes mellitus type: type 1 Diabetes mellitus complication detail: without coma Qualified Code(s): E10.10 - Type 1 diabetes mellitus with ketoacidosis without coma (3) Type 1 diabetes, uncontrolled, with nonproliferative retinopathy with macular edema Conclusion/Plan: Check A1c Speak to to see if her pump is been working (4) Electrolyte and fluid disorder Conclusion/Plan: Secondary to fluid shifts from her diabetes and uncontrolled sugars. Associated with lactic acidosis and hyperkalemia and acute kidney injury. Creatinine is 1.6. Plan: Electrolyte protocol per ICU Monitor labs daily Aggressive IV fluid resuscitation as indicated above (5) Abnormal chest xray Conclusion/Plan: This patient does not have any antecedent review of systems indicating fever, cough, chills, chest congestion. But her white cell count is elevated to 25.6. She is not hypoxic. Not tachypneic. Plan: Empiric antibiotic therapy for pneumonia in a patient is critically ill with DKA, metabolic derangement, and severe lactic acidosis - Lab Results Fish Bones: 02/20/19 09:39 02/20/19 12:26 - Diagnostic Imaging Results Diagnostic Imaging Results: positive: Final report reviewed Diagnostic Imaging Results Comments: Mild hazy left basilar opacity which could represent atelectasis or infiltrate. Core Measures - Anticipated LOS I expect patient to be DC'd or transferred within 96 hours.: Yes - DVT/VTE - Prophylaxis VTE/DVT Device ordered at admit?: Yes
[2019-02-20] MEDS: INSULIN REGULAR HUMAN 100 UNIT in SODIUM CHLORIDE 0.9% 100ML 99 ML IV SCH (13:00)
[2019-02-20 13:13] LABS: HB2 TOTAL 13.8 g/dL; HEMOGLOBIN A1C 1.5 g/dL; HEMOGLOBIN A1C % 12.1 % (4.6-6.2)
[2019-02-20 13:14] LABS: BUN - BLOOD UREA NITROGEN 27 mg/dL (6-20); CALCIUM 8.1 mg/dL (8.5-10.3); CARBON DIOXIDE - CO2 < 6 mmol/L (21-32); CHLORIDE 110 mmol/L (101-111); CREATININE 1.5 mg/dL (0.4-1.0); GFR - MDRD 39 (>89); GLUCOSE 616 mg/dL (70-100); MAGNESIUM 2.3 mg/dL (1.7-2.8); SODIUM 141 mmol/L (135-145)
[2019-02-20] MEDS: PANTOPRAZOLE 40 MG VIAL IVP SCH (13:45)
[2019-02-20] MEDS: AZITHROMYCIN INJ 500 MG in SODIUM CHLORIDE 0.9% 250 ML IV SCH (13:49)
[2019-02-20 14:41] LABS: BUN - BLOOD UREA NITROGEN 27 mg/dL (6-20); CALCIUM 8.2 mg/dL (8.5-10.3); CHLORIDE 112 mmol/L (101-111); CREATININE 1.4 mg/dL (0.4-1.0); GFR - MDRD 42 (>89); GLUCOSE 472 mg/dL (70-100); MAGNESIUM 2.2 mg/dL (1.7-2.8); SODIUM 142 mmol/L (135-145)
[2019-02-20 14:42] LABS: CARBON DIOXIDE - CO2 < 6 mmol/L (21-32)
[2019-02-20] MEDS: ENOXAPARIN 40 MG/0.4 ML SYRINGE SUBQ SCH (14:45)
[2019-02-20] MEDS ORDERED: POTASSIUM CHLOR 10 MEQ/100 ML 10 MEQ/100 ML BAG IV ONE (15:15)
[2019-02-20] MEDS: DEXTROSE 5%-0.9% NACL 1,000 ML IV SCH ×2 (15:19→18:30)
[2019-02-20] MEDS ORDERED: SODIUM CHLORIDE 0.9% 500 ML IV ONE (16:38)
[2019-02-20] MEDS: SODIUM CHLORIDE FLUSH 0.9% 10 ML SYRINGE IVP SCH (16:44)
[2019-02-20 16:47] LABS: GLUCOSE 367 mg/dL (70-100); MAGNESIUM 1.9 mg/dL (1.7-2.8)
[2019-02-20 17:12] LABS: BUN - BLOOD UREA NITROGEN 26 mg/dL (6-20); CALCIUM 7.7 mg/dL (8.5-10.3); CHLORIDE 117 mmol/L (101-111); CREATININE 1.4 mg/dL (0.4-1.0); GFR - MDRD 42 (>89); SODIUM 144 mmol/L (135-145)
[2019-02-20 17:14] LABS: CARBON DIOXIDE - CO2 < 6 mmol/L (21-32)
[2019-02-20] MEDS: POTASSIUM CHLOR 10 MEQ/100 ML 10 MEQ/100 ML BAG IV SCH ×3 (17:35→22:02)
--- NOTE | 2019-02-20 18:37 | ANESTHESIA PROCEDURE NOTE ---
Anesth Central Line Template - Central Line Central Line Preparation: Consent Obtained, Time out completed, Ultrasound used, Sterile prep and drape Central line location: Right IJ Central line type: Triple lumen Central line catheter tip site resides: Superior vena cava (SVC) (7Fr 20cm 3 lumen placed 16@skin. Ports/caps aspirate and flush easily. Sutured, biopatch, tegaderm. PCXR ordered. Tip appears 1cm deep. Pulled back under dressing. 15cm at skinm OK to use CVL) Central line aftercare: Chlorhexidine disc placed, Secured, Placement confirmed, No pneumothorax, No complications, Bundle checklist complete, Pt tolerated well
[2019-02-20] MEDS: SODIUM CHLORIDE FLUSH 0.9% 10 ML SYRINGE IVP PRN (18:44)
--- NOTE | 2019-02-20 19:00 | PROVIDER PROGRESS NOTE ---
Progress Note February 20, 2019 18:57 The patient has woken up during the course of the day. She has been aggressively hydrated with normal saline and oral mucosa is improved. Still dry but improved. She is taking p.o. ice chips and water. She is tearful. Keeps on saying "I have to take care of my babies". This is an improvement from this morning when she was unable to other sentences and was just moaning or mumbling. She will open her eyes and focus on you. Anion gap is not closing. Lactic acid worsening. Systolic blood pressure is 70-80 in spite of fluid boluses. She is alert, oriented. Initially refuses central line. She is afraid because "it is going to hurt". Oral mucosa improved from this morning but still dry Face is quite chubby and swollen. She now shares with me that she had dental work done with feeling in the front of her mouth. But when I saw shined a flashlight in her mouth there are no redness, abscesses, lesions Lungs have coarse upper airway sounds Not a tachycardic rate and rhythm. She is in the 70s, no murmur Abdomen soft, mildly distended with gas, nontender Extremities without edema. No change in ulcers that I saw earlier today. Assessment/plan Hypotension due to lactic acidosis Lactic acidosis is from severe dehydration, DKA type I, and possible pneumonia 20 minutes of direct intervention spent at the bedside Central line requested from the ER but they are unable to come in as such Yonny Puga CRNA was contacted Start Levophed Continue to correct metabolic and electrolyte derangement with antibiotics, IV fluids, supplementation of potassium, etc.
[2019-02-20 19:38] LABS: MUDS CUTOFF CONCENTRATIONS CUTOFF CONC BELOW:
[2019-02-20 19:54] LABS: AMPHETAMINE SCREEN,URINE NEGATIVE (NEGATIVE); BENZODIAZEPINES SCREEN, URINE NEGATIVE (NEGATIVE); COCAINE SCREEN URINE NEGATIVE (NEGATIVE); METHADONE SCREEN, URINE NEGATIVE (NEGATIVE); METHAMPHETAMINES SCREEN, URINE NEGATIVE (NEGATIVE); OPIATE SCREEN, URINE NEGATIVE (NEGATIVE); OXYCODONE SCREEN, URINE NEGATIVE (NEGATIVE); PROPOXYPHENE SCREEN, URINE NEGATIVE (NEGATIVE); TRICYCLIC ANTIDEPRESSANT,URINE NEGATIVE (NEGATIVE)
--- NOTE | 2019-02-20 20:00 | XRAY Report ---
Reason: new R IJ CVL Procedure Date: 02/20/2019 Accession Number: [id number] / [id number] Procedure: XR - Chest for Line Placement CPT Code: FULL RESULT: EXAM: CHEST RADIOGRAPHY EXAM DATE: 02/20/2019 06:23 PM. CLINICAL HISTORY: New R IJ CVL. COMPARISON: CHEST 1 VIEW 02/20/2019 9:48 AM. TECHNIQUE: 1 view. FINDINGS: Support apparatus: There is a new right IJ central venous catheter with tip near the superior cavoatrial junction. Lungs/Pleura: No focal opacities evident. The previously described mild hazy left basilar opacity is not appreciated on the current exam. No pleural effusion. No pneumothorax. Mediastinum: Within exam limitations, the cardiomediastinal contour is normal. Other: No acute osseous abnormality. IMPRESSION: New right IJ central venous catheter. The tip is near the superior cavoatrial junction. RADIA
[2019-02-20 21:31] LABS: MAGNESIUM 1.6 mg/dL (1.7-2.8)
[2019-02-20] MEDS ORDERED: MAGNESIUM SULFATE 2 GRAM 2 GM/50 ML BAG IV ONE (21:44)
[2019-02-20 21:59] LABS: ALBUMIN 2.7 g/dL (3.2-5.5); ALBUMIN/GLOBULIN RATIO 1.1 (1.0-2.2); BILIRUBIN,TOTAL 0.6 mg/dL (0.2-1.0); CALCIUM 7.4 mg/dL (8.5-10.3); CREATININE 1.1 mg/dL (0.4-1.0); TOTAL PROTEIN 5.1 g/dL (6.7-8.2)
[2019-02-20] MEDS: SODIUM CHLORIDE 0.9% 1,000 ML IV SCH (22:03)
[2019-02-21] MEDS: ONDANSETRON 4 MG/2 ML VIAL IVP PRN ×2 (00:21→09:24)
[2019-02-21] MEDS: SODIUM CHLORIDE FLUSH 0.9% 10 ML SYRINGE IVP PRN ×4 (00:26→21:14)
[2019-02-21] MEDS: SODIUM CHLORIDE FLUSH 0.9% 10 ML SYRINGE IVP SCH ×3 (01:14→16:20)
[2019-02-21 01:29] LABS: MAGNESIUM 1.9 mg/dL (1.7-2.8); PHOSPHORUS 1.7 mg/dL (2.5-4.6)
[2019-02-21] MEDS ORDERED: POTASSIUM PHOSPHATE 15 MMOL in SODIUM CHLORIDE 0.9% 250 ML IV ONE ×2 (01:56→15:44)
[2019-02-21] MEDS: POTASSIUM CHLOR 10 MEQ/100 ML 10 MEQ/100 ML BAG IV SCH ×6 (02:04→16:09)
[2019-02-21] MEDS: SODIUM CHLORIDE 0.9% 1,000 ML IV SCH (02:09)
[2019-02-21] MEDS: DEXTROSE 5%-0.9% NACL 1,000 ML IV SCH (02:09)
[2019-02-21 04:59] LABS: VBG BASE EXCESS -17.8 mmol/L (-2 - +2); VBG PCO2 25.5 mmHg (41-51); VBG PH 7.172 (7.31-7.41); VBG PO2 63.6 mmHg (25-47); VBG TOTAL CO2 9.9 mmol/L (24-29)
[2019-02-21 05:03] LABS: BASOPHILS % (AUTO) 0.4 %; EOSINOPHILS % (AUTO) 0.8 %; HGB - HEMOGLOBIN 10.7 g/dL (12.0-16.0); LYMPHOCYTES % (AUTO) 4.8 %; MEAN CORPUSCULAR HEMOGLOBIN 32.6 pg (27.0-31.0); MEAN CORPUSCULAR HGB CONC 31.1 g/dL (32.0-36.0); MEAN CORPUSCULAR VOLUME 104.9 fL (81.0-99.0); MEAN PLATELET VOLUME 9.8 fL (7.9-10.8); MONOCYTES % (AUTO) 10.2 %; NEUTROPHILS % (AUTO) 81.5 %; PLT - PLATELET COUNT 226 10^3/uL (130-450); RED BLOOD COUNT 3.28 10^6/uL (4.20-5.40); RED CELL DISTRIBUTION WIDTH 14.6 % (12.0-15.0); WHITE BLOOD COUNT 15.4 x10^3/uL (4.8-10.8)
[2019-02-21 05:12] LABS: MAGNESIUM 1.7 mg/dL (1.7-2.8); PHOSPHORUS 2.7 mg/dL (2.5-4.6)
[2019-02-21 05:13] LABS: ABNORMAL LYMPHS % (MANUAL) 0 %
[2019-02-21 05:19] LABS: ALBUMIN 2.6 g/dL (3.2-5.5); ALBUMIN/GLOBULIN RATIO 1.1 (1.0-2.2); BILIRUBIN,TOTAL 0.4 mg/dL (0.2-1.0); CALCIUM 7.1 mg/dL (8.5-10.3)
[2019-02-21 05:35] LABS: BAND NEUTROPHILS % (MANUAL) 2 %; LYMPHOCYTES # (MANUAL) 1.4 10^3/uL (1.5-3.5); LYMPHOCYTES % (MANUAL) 9 %; MONOCYTES # (MANUAL) 0.6 10^3/uL (0.0-1.0)
[2019-02-21 05:36] LABS: DIFFERENTIAL COMMENT MANUAL DIFFERENTIAL; PLATELET ESTIMATE, MANUAL NORMAL (130-450,000) (NORMAL); PLATELET MORPHOLOGY NORMAL APPEARANCE (NORMAL); RBC MORPHOLOGY (MULTIPLE) NORMAL APPEARANCE (NORMAL)
[2019-02-21 05:37] LABS: VBG PH 7.172 (7.31-7.41)
[2019-02-21] MEDS ORDERED: MAGNESIUM SULFATE 2 GRAM 2 GM/50 ML BAG IV ONE (06:00)
[2019-02-21] MEDS: PANTOPRAZOLE 40 MG VIAL IVP SCH (06:24)
--- NOTE | 2019-02-21 07:36 | PROVIDER PROGRESS NOTE ---
Subjective - Prog Note Date Prog Note Date: 02/21/19 Prog Note Time: 10:34 - Subjective Subjective: now lucid, but wants to sleep. no appetite. Insulin drip being kept at 2 units/hr bc of continued lactic acidosis Current Medications - Current Medications Current Medications: Active Medications Acetaminophen (Tylenol) 650 mg PO Q4HR PRN PRN Reason: Pain 1 to 4 Enoxaparin Sodium (Lovenox) 40 mg SUBQ DAILY [facility] Last Admin: 02/21/19 09:25 Dose: 40 mg Insulin Human Regular 100 unit (/ Sodium Chloride) 100 mls @ 6 mls/hr IV .[id number] [facility]; Protocol Last Titration: 02/21/19 07:18 Dose: 3.5 unit/hr, 3.5 mls/hr Azithromycin 500 mg/ Sodium (Chloride) 250 mls @ 250 mls/hr IV DAILY [facility] Last Admin: 02/21/19 08:46 Dose: 250 mls/hr Ceftriaxone Sodium 1 gm/ (Sodium Chloride) 100 mls @ 200 mls/hr IV DAILY [facility] Last Admin: 02/21/19 09:41 Dose: 200 mls/hr Potassium Chloride (Potassium Chloride) 10 meq in 100 mls @ 100 mls/hr IV Q1H [facility] Last Admin: 02/21/19 09:39 Dose: Not Given Norepinephrine Bitartrate 8 mg (/ Dextrose) 250 mls @ 0 mls/hr IV .Q0M [facility]; Protocol Dextrose/Sodium Chloride (D5.45ns) 1,000 mls @ 125 mls/hr IV .Q8H [facility] Last Infusion: 02/21/19 09:44 Dose: 125 mls/hr Sodium Chloride (Normal Saline 0.45%) 1,000 mls @ 75 mls/hr IV .[id number] [facility] Last Infusion: 02/21/19 09:45 Dose: 75 mls/hr Ondansetron HCl (Zofran Inj) 4 mg IVP Q6HR PRN PRN Reason: Nausea / Vomiting Last Admin: 02/21/19 09:24 Dose: 4 mg Ondansetron HCl (Zofran Odt) 4 mg TL Q6HR PRN PRN Reason: Nausea / Vomiting Pantoprazole Sodium (Protonix) 40 mg IVP QDAC [facility] Last Admin: 02/21/19 06:24 Dose: 40 mg Polyethylene Glycol (Miralax) 17 gm PO DAILY [facility] Last Admin: 02/21/19 09:39 Dose: Not Given Sodium Chloride (Normal Saline Flush 0.9%) 10 ml IVP PRN PRN PRN Reason: NEEDED PER PROVIDER ORDERS Last Admin: 02/20/19 18:44 Dose: 10 ml Sodium Chloride (Normal Saline Flush 0.9%) 10 ml IVP 0100,0900,1700 [facility] Last Admin: 02/21/19 09:40 Dose: 10 ml Sodium Chloride (Normal Saline Flush 0.9%) 20 ml IVP PRN PRN PRN Reason: After Blood Draw Last Admin: 02/21/19 10:07 Dose: 20 ml Dorzolamide/Timolol Ophth Soln [Cosopt] 1 drops RIGHTEYE BID 04/03/17 Insulin Lispro [Humalog] 100 unit SQ DAILY 04/03/17 Objective - Vital Signs/Intake & Output Reviewed Vital Signs: Yes Vital Signs: Vital Signs Temp Pulse Resp BP Pulse Ox 02/21/19 07:00 94 15 109/58 L 98 02/21/19 06:00 105 H 30 H 138/51 H 96 02/21/19 05:00 100 17 120/66 99 02/21/19 04:00 37.1 C 100 15 128/65 99 Intake & Output: Intake & Output 02/18/19 02/19/19 02/20/19 02/21/19 23:59 23:59 23:59 23:59 Intake Total 5556.25 1772.091 Output Total 400 825 Balance 5156.25 947.091 - Objective General Appearance: positive: Other (sleeping but will wake to voice and speak appropriately, but once done, back to sleep. Does need encouragement to get up to bathroom) Eyes Bilateral: positive: PERRL, EOMI Neck: positive: No JVD Respiratory: positive: Chest non-tender. negative: Wheezes, Rales, Rhonchi Cardiovascular: positive: Regular rate & rhythm. negative: Gallop/S4, Friction rub Abdomen: positive: Non-tender, Nml bowel sounds, No distention Skin: positive: Warm, Dry Extremities: positive: No pedal edema (but face/cheeks cushinoid) Neurologic/Psychiatric: positive: Oriented x3, CN's nml (2-12), Motor nml, Weakness - Lab Results Fish Bones: 02/21/19 04:43 02/21/19 09:50 Other Labs: Lab Results x24hrs 02/21/19 02/21/19 02/21/19 Range/Units 07:14 06:18 05:30 WBC (4.8-10.8) x10^3/uL RBC (4.20-5.40) 10^6/uL Hgb (12.0-16.0) g/dL Hct (37.0-47.0) % MCV (81.0-99.0) fL MCH (27.0-31.0) pg MCHC (32.0-36.0) g/dL RDW (12.0-15.0) % Plt Count (130-450) 10^3/uL MPV (7.9-10.8) fL Neut # (Auto) (1.5-6.6) 10^3/uL Lymph # (Auto) (1.5-3.5) 10^3/uL White # (Auto) (0.0-1.0) 10^3/uL Eos # (Auto) (0.0-0.7) 10^3/uL Baso # (Auto) (0.0-0.1) 10^3/uL Absolute Nucleated RBC x10^3/uL Total Counted Band Neuts % (Manual) (0 - 10) % Abnorm Lymph % (Manual) % Nucleated RBC % /100WBC Neutrophils # (Manual) (1.5-6.6) 10^3/uL Lymphocytes # (Manual) (1.5-3.5) 10^3/uL Monocytes # (Manual) (0.0-1.0) 10^3/uL Eosinophils # (Manual) (0-0.7) 10^3/uL Basophils # (Manual) (0-0.1) 10^3/uL Differential Comment Manual Slide Review WBC Morphology (NORMAL) Platelet Estimate (NORMAL) Platelet Morphology (NORMAL) RBC Morph Micro Appear (NORMAL) VBG pH (7.31-7.41) VBG pCO2 (41-51) mmHg VBG pO2 (25-47) mmHg VBG HCO3 (23-28) mmol/L VBG Total CO2 (24-29) mmol/L VBG O2 Saturation (60-80) % VBG Base Excess (-2 - +2) mmol/L Ionized Calcium (1.15-1.33) mmol/L Sodium (135-145) mmol/L Potassium (3.5-5.0) mmol/L Chloride (101-111) mmol/L Carbon Dioxide (21-32) mmol/L Anion Gap (6-13) BUN (6-20) mg/dL Creatinine (0.4-1.0) mg/dL Estimated GFR (MDRD) (>89) Glucose (70-100) mg/dL POC Whole Bld Glucose 201 H 181 H (70 - 100) mg/dL Glycated Hemoglobin (4.6-6.2) % Estim Average Glucose (70-100) Lactic Acid 5.4 H* (0.5-2.2) mmol/L Calcium (8.5-10.3) mg/dL Phosphorus (2.5-4.6) mg/dL Magnesium (1.7-2.8) mg/dL Total Bilirubin (0.2-1.0) mg/dL AST (10-42) IU/L ALT (10-60) IU/L Alkaline Phosphatase (42-121) IU/L Total Protein (6.7-8.2) g/dL Albumin (3.2-5.5) g/dL Globulin (2.1-4.2) g/dL Albumin/Globulin Ratio (1.0-2.2) Lipase (22-51) U/L Urine Color Urine Clarity (CLEAR) Urine pH (5.0-7.5) PH Ur Specific [place] (1.002-1.030) Urine Protein (NEGATIVE) mg/dL Urine Glucose (UA) (NEGATIVE) mg/dL Urine Ketones (NEGATIVE) mg/dL Urine Occult Blood (NEGATIVE) Urine Nitrite (NEGATIVE) Urine Bilirubin (NEGATIVE) Urine Urobilinogen (NORMAL) E.U./dL Ur Leukocyte Esterase (NEGATIVE) Urine RBC (0-5) /HPF Urine WBC (0-5) /HPF Ur Squamous Epith Cells (<= Few) Urine Bacteria (None Seen) /HPF Ur Microscopic Review Urine Culture Comments Urine HCG, Qual Nasal Screen MRSA (PCR) (NEGATIVE) Urine Opiates Screen (NEGATIVE) Ur Oxycodone Screen (NEGATIVE) Urine Methadone Screen (NEGATIVE) Ur Propoxyphene Screen (NEGATIVE) Ur Barbiturates Screen (NEGATIVE) Ur Tricyclics Screen (NEGATIVE) Ur Phencyclidine Scrn (NEGATIVE) Ur Amphetamine Screen (NEGATIVE) U Methamphetamines Scrn (NEGATIVE) U Benzodiazepines Scrn (NEGATIVE) Urine Cocaine Screen (NEGATIVE) U Cannabinoids Screen (NEGATIVE) Serum Ketones (NEGATIVE) 02/21/19 02/21/19 02/21/19 Range/Units 04:45 04:44 04:43 WBC (4.8-10.8) x10^3/uL RBC (4.20-5.40) 10^6/uL Hgb (12.0-16.0) g/dL Hct (37.0-47.0) % MCV (81.0-99.0) fL MCH (27.0-31.0) pg MCHC (32.0-36.0) g/dL RDW (12.0-15.0) % Plt Count (130-450) 10^3/uL MPV (7.9-10.8) fL Neut # (Auto) (1.5-6.6) 10^3/uL Lymph # (Auto) (1.5-3.5) 10^3/uL White # (Auto) (0.0-1.0) 10^3/uL Eos # (Auto) (0.0-0.7) 10^3/uL Baso # (Auto) (0.0-0.1) 10^3/uL Absolute Nucleated RBC x10^3/uL Total Counted Band Neuts % (Manual) (0 - 10) % Abnorm Lymph % (Manual) % Nucleated RBC % /100WBC Neutrophils # (Manual) (1.5-6.6) 10^3/uL Lymphocytes # (Manual) (1.5-3.5) 10^3/uL Monocytes # (Manual) (0.0-1.0) 10^3/uL Eosinophils # (Manual) (0-0.7) 10^3/uL Basophils # (Manual) (0-0.1) 10^3/uL Differential Comment Manual Slide Review WBC Morphology (NORMAL) Platelet Estimate (NORMAL) Platelet Morphology (NORMAL) RBC Morph Micro Appear (NORMAL) VBG pH 7.172 L (7.31-7.41) VBG pCO2 (41-51) mmHg VBG pO2 (25-47) mmHg VBG HCO3 (23-28) mmol/L VBG Total CO2 (24-29) mmol/L VBG O2 Saturation (60-80) % VBG Base Excess (-2 - +2) mmol/L Ionized Calcium 1.09 L (1.15-1.33) mmol/L Sodium (135-145) mmol/L Potassium (3.5-5.0) mmol/L Chloride (101-111) mmol/L Carbon Dioxide (21-32) mmol/L Anion Gap (6-13) BUN (6-20) mg/dL Creatinine (0.4-1.0) mg/dL Estimated GFR (MDRD) (>89) Glucose (70-100) mg/dL POC Whole Bld Glucose 136 H (70 - 100) mg/dL Glycated Hemoglobin (4.6-6.2) % Estim Average Glucose (70-100) Lactic Acid (0.5-2.2) mmol/L Calcium (8.5-10.3) mg/dL Phosphorus 2.7 (2.5-4.6) mg/dL Magnesium 1.7 (1.7-2.8) mg/dL Total Bilirubin (0.2-1.0) mg/dL AST (10-42) IU/L ALT (10-60) IU/L Alkaline Phosphatase (42-121) IU/L Total Protein (6.7-8.2) g/dL Albumin (3.2-5.5) g/dL Globulin (2.1-4.2) g/dL Albumin/Globulin Ratio (1.0-2.2) Lipase (22-51) U/L Urine Color Urine Clarity (CLEAR) Urine pH (5.0-7.5) PH Ur Specific [place] (1.002-1.030) Urine Protein (NEGATIVE) mg/dL Urine Glucose (UA) (NEGATIVE) mg/dL Urine Ketones (NEGATIVE) mg/dL Urine Occult Blood (NEGATIVE) Urine Nitrite (NEGATIVE) Urine Bilirubin (NEGATIVE) Urine Urobilinogen (NORMAL) E.U./dL Ur Leukocyte Esterase (NEGATIVE) Urine RBC (0-5) /HPF Urine WBC (0-5) /HPF Ur Squamous Epith Cells (<= Few) Urine Bacteria (None Seen) /HPF Ur Microscopic Review Urine Culture Comments Urine HCG, Qual Nasal Screen MRSA (PCR) (NEGATIVE) Urine Opiates Screen (NEGATIVE) Ur Oxycodone Screen (NEGATIVE) Urine Methadone Screen (NEGATIVE) Ur Propoxyphene Screen (NEGATIVE) Ur Barbiturates Screen (NEGATIVE) Ur Tricyclics Screen (NEGATIVE) Ur Phencyclidine Scrn (NEGATIVE) Ur Amphetamine Screen (NEGATIVE) U Methamphetamines Scrn (NEGATIVE) U Benzodiazepines Scrn (NEGATIVE) Urine Cocaine Screen (NEGATIVE) U Cannabinoids Screen (NEGATIVE) Serum Ketones (NEGATIVE) 02/21/19 02/21/19 02/21/19 Range/Units 04:43 04:43 04:43 WBC (4.8-10.8) x10^3/uL RBC (4.20-5.40) 10^6/uL Hgb (12.0-16.0) g/dL Hct (37.0-47.0) % MCV (81.0-99.0) fL MCH (27.0-31.0) pg MCHC (32.0-36.0) g/dL RDW (12.0-15.0) % Plt Count (130-450) 10^3/uL MPV (7.9-10.8) fL Neut # (Auto) (1.5-6.6) 10^3/uL Lymph # (Auto) (1.5-3.5) 10^3/uL White # (Auto) (0.0-1.0) 10^3/uL Eos # (Auto) (0.0-0.7) 10^3/uL Baso # (Auto) (0.0-0.1) 10^3/uL Absolute Nucleated RBC x10^3/uL Total Counted Band Neuts % (Manual) (0 - 10) % Abnorm Lymph % (Manual) % Nucleated RBC % /100WBC Neutrophils # (Manual) (1.5-6.6) 10^3/uL Lymphocytes # (Manual) (1.5-3.5) 10^3/uL Monocytes # (Manual) (0.0-1.0) 10^3/uL Eosinophils # (Manual) (0-0.7) 10^3/uL Basophils # (Manual) (0-0.1) 10^3/uL Differential Comment Manual Slide Review WBC Morphology (NORMAL) Platelet Estimate (NORMAL) Platelet Morphology (NORMAL) RBC Morph Micro Appear (NORMAL) VBG pH 7.172 L (7.31-7.41) VBG pCO2 25.5 L (41-51) mmHg VBG pO2 63.6 H (25-47) mmHg VBG HCO3 9.1 L (23-28) mmol/L VBG Total CO2 9.9 L (24-29) mmol/L VBG O2 Saturation 92.6 H (60-80) % VBG Base Excess -17.8 L (-2 - +2) mmol/L Ionized Calcium (1.15-1.33) mmol/L Sodium 145 (135-145) mmol/L Potassium 4.3 (3.5-5.0) mmol/L Chloride 123 H* (101-111) mmol/L Carbon Dioxide 10 L* (21-32) mmol/L Anion Gap 12.0 (6-13) BUN 22 H (6-20) mg/dL Creatinine 1.0 (0.4-1.0) mg/dL Estimated GFR (MDRD) 62 L (>89) Glucose 168 H (70-100) mg/dL POC Whole Bld Glucose (70 - 100) mg/dL Glycated Hemoglobin (4.6-6.2) % Estim Average Glucose (70-100) Lactic Acid 5.6 H* (0.5-2.2) mmol/L Calcium 7.1 L (8.5-10.3) mg/dL Phosphorus (2.5-4.6) mg/dL Magnesium (1.7-2.8) mg/dL Total Bilirubin 0.4 (0.2-1.0) mg/dL AST 30 (10-42) IU/L ALT 19 (10-60) IU/L Alkaline Phosphatase 70 (42-121) IU/L Total Protein 5.0 L (6.7-8.2) g/dL Albumin 2.6 L (3.2-5.5) g/dL Globulin 2.4 (2.1-4.2) g/dL Albumin/Globulin Ratio 1.1 (1.0-2.2) Lipase (22-51) U/L Urine Color Urine Clarity (CLEAR) Urine pH (5.0-7.5) PH Ur Specific [place] (1.002-1.030) Urine Protein (NEGATIVE) mg/dL Urine Glucose (UA) (NEGATIVE) mg/dL Urine Ketones (NEGATIVE) mg/dL Urine Occult Blood (NEGATIVE) Urine Nitrite (NEGATIVE) Urine Bilirubin (NEGATIVE) Urine Urobilinogen (NORMAL) E.U./dL Ur Leukocyte Esterase (NEGATIVE) Urine RBC (0-5) /HPF Urine WBC (0-5) /HPF Ur Squamous Epith Cells (<= Few) Urine Bacteria (None Seen) /HPF Ur Microscopic Review Urine Culture Comments Urine HCG, Qual Nasal Screen MRSA (PCR) (NEGATIVE) Urine Opiates Screen (NEGATIVE) Ur Oxycodone Screen (NEGATIVE) Urine Methadone Screen (NEGATIVE) Ur Propoxyphene Screen (NEGATIVE) Ur Barbiturates Screen (NEGATIVE) Ur Tricyclics Screen (NEGATIVE) Ur Phencyclidine Scrn (NEGATIVE) Ur Amphetamine Screen (NEGATIVE) U Methamphetamines Scrn (NEGATIVE) U Benzodiazepines Scrn (NEGATIVE) Urine Cocaine Screen (NEGATIVE) U Cannabinoids Screen (NEGATIVE) Serum Ketones (NEGATIVE) 02/21/19 02/21/19 02/21/19 Range/Units 04:43 03:57 03:07 WBC 15.4 H (4.8-10.8) x10^3/uL RBC 3.28 L (4.20-5.40) 10^6/uL Hgb 10.7 L (12.0-16.0) g/dL Hct 34.4 L (37.0-47.0) % MCV 104.9 H (81.0-99.0) fL MCH 32.6 H (27.0-31.0) pg MCHC 31.1 L (32.0-36.0) g/dL RDW 14.6 (12.0-15.0) % Plt Count 226 (130-450) 10^3/uL MPV 9.8 (7.9-10.8) fL Neut # (Auto) Not Reportable (1.5-6.6) 10^3/uL Lymph # (Auto) Not Reportable (1.5-3.5) 10^3/uL White # (Auto) Not Reportable (0.0-1.0) 10^3/uL Eos # (Auto) Not Reportable (0.0-0.7) 10^3/uL Baso # (Auto) Not Reportable (0.0-0.1) 10^3/uL Absolute Nucleated RBC Not Reportable x10^3/uL Total Counted 100 Band Neuts % (Manual) 2 (0 - 10) % Abnorm Lymph % (Manual) 0 % Nucleated RBC % Not Reportable /100WBC Neutrophils # (Manual) 13.4 H (1.5-6.6) 10^3/uL Lymphocytes # (Manual) 1.4 L (1.5-3.5) 10^3/uL Monocytes # (Manual) 0.6 (0.0-1.0) 10^3/uL Eosinophils # (Manual) 0.0 (0-0.7) 10^3/uL Basophils # (Manual) 0.0 (0-0.1) 10^3/uL Differential Comment MANUAL DIFFERENTIAL Manual Slide Review WBC Morphology NORMAL APPEARANCE (NORMAL) Platelet Estimate NORMAL (130-450,000) (NORMAL) Platelet Morphology NORMAL APPEARANCE (NORMAL) RBC Morph Micro Appear NORMAL APPEARANCE (NORMAL) VBG pH (7.31-7.41) VBG pCO2 (41-51) mmHg VBG pO2 (25-47) mmHg VBG HCO3 (23-28) mmol/L VBG Total CO2 (24-29) mmol/L VBG O2 Saturation (60-80) % VBG Base Excess (-2 - +2) mmol/L Ionized Calcium (1.15-1.33) mmol/L Sodium (135-145) mmol/L Potassium (3.5-5.0) mmol/L Chloride (101-111) mmol/L Carbon Dioxide (21-32) mmol/L Anion Gap (6-13) BUN (6-20) mg/dL Creatinine (0.4-1.0) mg/dL Estimated GFR (MDRD) (>89) Glucose (70-100) mg/dL POC Whole Bld Glucose 209 H 216 H (70 - 100) mg/dL Glycated Hemoglobin (4.6-6.2) % Estim Average Glucose (70-100) Lactic Acid (0.5-2.2) mmol/L Calcium (8.5-10.3) mg/dL Phosphorus (2.5-4.6) mg/dL Magnesium (1.7-2.8) mg/dL Total Bilirubin (0.2-1.0) mg/dL AST (10-42) IU/L ALT (10-60) IU/L Alkaline Phosphatase (42-121) IU/L Total Protein (6.7-8.2) g/dL Albumin (3.2-5.5) g/dL Globulin (2.1-4.2) g/dL Albumin/Globulin Ratio (1.0-2.2) Lipase (22-51) U/L Urine Color Urine Clarity (CLEAR) Urine pH (5.0-7.5) PH Ur Specific [place] (1.002-1.030) Urine Protein (NEGATIVE) mg/dL Urine Glucose (UA) (NEGATIVE) mg/dL Urine Ketones (NEGATIVE) mg/dL Urine Occult Blood (NEGATIVE) Urine Nitrite (NEGATIVE) Urine Bilirubin (NEGATIVE) Urine Urobilinogen (NORMAL) E.U./dL Ur Leukocyte Esterase (NEGATIVE) Urine RBC (0-5) /HPF Urine WBC (0-5) /HPF Ur Squamous Epith Cells (<= Few) Urine Bacteria (None Seen) /HPF Ur Microscopic Review Urine Culture Comments Urine HCG, Qual Nasal Screen MRSA (PCR) (NEGATIVE) Urine Opiates Screen (NEGATIVE) Ur Oxycodone Screen (NEGATIVE) Urine Methadone Screen (NEGATIVE) Ur Propoxyphene Screen (NEGATIVE) Ur Barbiturates Screen (NEGATIVE) Ur Tricyclics Screen (NEGATIVE) Ur Phencyclidine Scrn (NEGATIVE) Ur Amphetamine Screen (NEGATIVE) U Methamphetamines Scrn (NEGATIVE) U Benzodiazepines Scrn (NEGATIVE) Urine Cocaine Screen (NEGATIVE) U Cannabinoids Screen (NEGATIVE) Serum Ketones (NEGATIVE) 02/21/19 02/21/19 02/21/19 Range/Units 01:58 01:09 01:05 WBC (4.8-10.8) x10^3/uL RBC (4.20-5.40) 10^6/uL Hgb (12.0-16.0) g/dL Hct (37.0-47.0) % MCV (81.0-99.0) fL MCH (27.0-31.0) pg MCHC (32.0-36.0) g/dL RDW (12.0-15.0) % Plt Count (130-450) 10^3/uL MPV (7.9-10.8) fL Neut # (Auto) (1.5-6.6) 10^3/uL Lymph # (Auto) (1.5-3.5) 10^3/uL White # (Auto) (0.0-1.0) 10^3/uL Eos # (Auto) (0.0-0.7) 10^3/uL Baso # (Auto) (0.0-0.1) 10^3/uL Absolute Nucleated RBC x10^3/uL Total Counted Band Neuts % (Manual) (0 - 10) % Abnorm Lymph % (Manual) % Nucleated RBC % /100WBC Neutrophils # (Manual) (1.5-6.6) 10^3/uL Lymphocytes # (Manual) (1.5-3.5) 10^3/uL Monocytes # (Manual) (0.0-1.0) 10^3/uL Eosinophils # (Manual) (0-0.7) 10^3/uL Basophils # (Manual) (0-0.1) 10^3/uL Differential Comment Manual Slide Review WBC Morphology (NORMAL) Platelet Estimate (NORMAL) Platelet Morphology (NORMAL) RBC Morph Micro Appear (NORMAL) VBG pH (7.31-7.41) VBG pCO2 (41-51) mmHg VBG pO2 (25-47) mmHg VBG HCO3 (23-28) mmol/L VBG Total CO2 (24-29) mmol/L VBG O2 Saturation (60-80) % VBG Base Excess (-2 - +2) mmol/L Ionized Calcium (1.15-1.33) mmol/L Sodium (135-145) mmol/L Potassium 4.3 (3.5-5.0) mmol/L Chloride (101-111) mmol/L Carbon Dioxide (21-32) mmol/L Anion Gap (6-13) BUN (6-20) mg/dL Creatinine (0.4-1.0) mg/dL Estimated GFR (MDRD) (>89) Glucose (70-100) mg/dL POC Whole Bld Glucose 176 H 159 H (70 - 100) mg/dL Glycated Hemoglobin (4.6-6.2) % Estim Average Glucose (70-100) Lactic Acid (0.5-2.2) mmol/L Calcium (8.5-10.3) mg/dL Phosphorus 1.7 L (2.5-4.6) mg/dL Magnesium 1.9 (1.7-2.8) mg/dL Total Bilirubin (0.2-1.0) mg/dL AST (10-42) IU/L ALT (10-60) IU/L Alkaline Phosphatase (42-121) IU/L Total Protein (6.7-8.2) g/dL Albumin (3.2-5.5) g/dL Globulin (2.1-4.2) g/dL Albumin/Globulin Ratio (1.0-2.2) Lipase (22-51) U/L Urine Color Urine Clarity (CLEAR) Urine pH (5.0-7.5) PH Ur Specific [place] (1.002-1.030) Urine Protein (NEGATIVE) mg/dL Urine Glucose (UA) (NEGATIVE) mg/dL Urine Ketones (NEGATIVE) mg/dL Urine Occult Blood (NEGATIVE) Urine Nitrite (NEGATIVE) Urine Bilirubin (NEGATIVE) Urine Urobilinogen (NORMAL) E.U./dL Ur Leukocyte Esterase (NEGATIVE) Urine RBC (0-5) /HPF Urine WBC (0-5) /HPF Ur Squamous Epith Cells (<= Few) Urine Bacteria (None Seen) /HPF Ur Microscopic Review Urine Culture Comments Urine HCG, Qual Nasal Screen MRSA (PCR) (NEGATIVE) Urine Opiates Screen (NEGATIVE) Ur Oxycodone Screen (NEGATIVE) Urine Methadone Screen (NEGATIVE) Ur Propoxyphene Screen (NEGATIVE) Ur Barbiturates Screen (NEGATIVE) Ur Tricyclics Screen (NEGATIVE) Ur Phencyclidine Scrn (NEGATIVE) Ur Amphetamine Screen (NEGATIVE) U Methamphetamines Scrn (NEGATIVE) U Benzodiazepines Scrn (NEGATIVE) Urine Cocaine Screen (NEGATIVE) U Cannabinoids Screen (NEGATIVE) Serum Ketones (NEGATIVE) 02/21/19 02/21/19 02/20/19 Range/Units 01:05 00:01 23:07 WBC (4.8-10.8) x10^3/uL RBC (4.20-5.40) 10^6/uL Hgb (12.0-16.0) g/dL Hct (37.0-47.0) % MCV (81.0-99.0) fL MCH (27.0-31.0) pg MCHC (32.0-36.0) g/dL RDW (12.0-15.0) % Plt Count (130-450) 10^3/uL MPV (7.9-10.8) fL Neut # (Auto) (1.5-6.6) 10^3/uL Lymph # (Auto) (1.5-3.5) 10^3/uL White # (Auto) (0.0-1.0) 10^3/uL Eos # (Auto) (0.0-0.7) 10^3/uL Baso # (Auto) (0.0-0.1) 10^3/uL Absolute Nucleated RBC x10^3/uL Total Counted Band Neuts % (Manual) (0 - 10) % Abnorm Lymph % (Manual) % Nucleated RBC % /100WBC Neutrophils # (Manual) (1.5-6.6) 10^3/uL Lymphocytes # (Manual) (1.5-3.5) 10^3/uL Monocytes # (Manual) (0.0-1.0) 10^3/uL Eosinophils # (Manual) (0-0.7) 10^3/uL Basophils # (Manual) (0-0.1) 10^3/uL Differential Comment Manual Slide Review WBC Morphology (NORMAL) Platelet Estimate (NORMAL) Platelet Morphology (NORMAL) RBC Morph Micro Appear (NORMAL) VBG pH (7.31-7.41) VBG pCO2 (41-51) mmHg VBG pO2 (25-47) mmHg VBG HCO3 (23-28) mmol/L VBG Total CO2 (24-29) mmol/L VBG O2 Saturation (60-80) % VBG Base Excess (-2 - +2) mmol/L Ionized Calcium (1.15-1.33) mmol/L Sodium (135-145) mmol/L Potassium (3.5-5.0) mmol/L Chloride (101-111) mmol/L Carbon Dioxide (21-32) mmol/L Anion Gap (6-13) BUN (6-20) mg/dL Creatinine (0.4-1.0) mg/dL Estimated GFR (MDRD) (>89) Glucose (70-100) mg/dL POC Whole Bld Glucose 121 H 109 H (70 - 100) mg/dL Glycated Hemoglobin (4.6-6.2) % Estim Average Glucose (70-100) Lactic Acid 1.8 (0.5-2.2) mmol/L Calcium (8.5-10.3) mg/dL Phosphorus (2.5-4.6) mg/dL Magnesium (1.7-2.8) mg/dL Total Bilirubin (0.2-1.0) mg/dL AST (10-42) IU/L ALT (10-60) IU/L Alkaline Phosphatase (42-121) IU/L Total Protein (6.7-8.2) g/dL Albumin (3.2-5.5) g/dL Globulin (2.1-4.2) g/dL Albumin/Globulin Ratio (1.0-2.2) Lipase (22-51) U/L Urine Color Urine Clarity (CLEAR) Urine pH (5.0-7.5) PH Ur Specific [place] (1.002-1.030) Urine Protein (NEGATIVE) mg/dL Urine Glucose (UA) (NEGATIVE) mg/dL Urine Ketones (NEGATIVE) mg/dL Urine Occult Blood (NEGATIVE) Urine Nitrite (NEGATIVE) Urine Bilirubin (NEGATIVE) Urine Urobilinogen (NORMAL) E.U./dL Ur Leukocyte Esterase (NEGATIVE) Urine RBC (0-5) /HPF Urine WBC (0-5) /HPF Ur Squamous Epith Cells (<= Few) Urine Bacteria (None Seen) /HPF Ur Microscopic Review Urine Culture Comments Urine HCG, Qual Nasal Screen MRSA (PCR) (NEGATIVE) Urine Opiates Screen (NEGATIVE) Ur Oxycodone Screen (NEGATIVE) Urine Methadone Screen (NEGATIVE) Ur Propoxyphene Screen (NEGATIVE) Ur Barbiturates Screen (NEGATIVE) Ur Tricyclics Screen (NEGATIVE) Ur Phencyclidine Scrn (NEGATIVE) Ur Amphetamine Screen (NEGATIVE) U Methamphetamines Scrn (NEGATIVE) U Benzodiazepines Scrn (NEGATIVE) Urine Cocaine Screen (NEGATIVE) U Cannabinoids Screen (NEGATIVE) Serum Ketones (NEGATIVE) 02/20/19 02/20/19 02/20/19 Range/Units 21:09 21:08 21:08 WBC (4.8-10.8) x10^3/uL RBC (4.20-5.40) 10^6/uL Hgb (12.0-16.0) g/dL Hct (37.0-47.0) % MCV (81.0-99.0) fL MCH (27.0-31.0) pg MCHC (32.0-36.0) g/dL RDW (12.0-15.0) % Plt Count (130-450) 10^3/uL MPV (7.9-10.8) fL Neut # (Auto) (1.5-6.6) 10^3/uL Lymph # (Auto) (1.5-3.5) 10^3/uL White # (Auto) (0.0-1.0) 10^3/uL Eos # (Auto) (0.0-0.7) 10^3/uL Baso # (Auto) (0.0-0.1) 10^3/uL Absolute Nucleated RBC x10^3/uL Total Counted Band Neuts % (Manual) (0 - 10) % Abnorm Lymph % (Manual) % Nucleated RBC % /100WBC Neutrophils # (Manual) (1.5-6.6) 10^3/uL Lymphocytes # (Manual) (1.5-3.5) 10^3/uL Monocytes # (Manual) (0.0-1.0) 10^3/uL Eosinophils # (Manual) (0-0.7) 10^3/uL Basophils # (Manual) (0-0.1) 10^3/uL Differential Comment Manual Slide Review WBC Morphology (NORMAL) Platelet Estimate (NORMAL) Platelet Morphology (NORMAL) RBC Morph Micro Appear (NORMAL) VBG pH (7.31-7.41) VBG pCO2 (41-51) mmHg VBG pO2 (25-47) mmHg VBG HCO3 (23-28) mmol/L VBG Total CO2 (24-29) mmol/L VBG O2 Saturation (60-80) % VBG Base Excess (-2 - +2) mmol/L Ionized Calcium (1.15-1.33) mmol/L Sodium 144 (135-145) mmol/L Potassium 4.7 (3.5-5.0) mmol/L Chloride 121 H* (101-111) mmol/L Carbon Dioxide 10 L* (21-32) mmol/L Anion Gap 13.0 (6-13) BUN 26 H (6-20) mg/dL Creatinine 1.1 H (0.4-1.0) mg/dL Estimated GFR (MDRD) 56 L (>89) Glucose 145 H (70-100) mg/dL POC Whole Bld Glucose 141 H (70 - 100) mg/dL Glycated Hemoglobin (4.6-6.2) % Estim Average Glucose (70-100) Lactic Acid 4.3 H* (0.5-2.2) mmol/L Calcium 7.4 L (8.5-10.3) mg/dL Phosphorus (2.5-4.6) mg/dL Magnesium (1.7-2.8) mg/dL Total Bilirubin 0.6 (0.2-1.0) mg/dL AST 41 (10-42) IU/L ALT 23 (10-60) IU/L Alkaline Phosphatase 69 (42-121) IU/L Total Protein 5.1 L (6.7-8.2) g/dL Albumin 2.7 L (3.2-5.5) g/dL Globulin 2.4 (2.1-4.2) g/dL Albumin/Globulin Ratio 1.1 (1.0-2.2) Lipase (22-51) U/L Urine Color Urine Clarity (CLEAR) Urine pH (5.0-7.5) PH Ur Specific [place] (1.002-1.030) Urine Protein (NEGATIVE) mg/dL Urine Glucose (UA) (NEGATIVE) mg/dL Urine Ketones (NEGATIVE) mg/dL Urine Occult Blood (NEGATIVE) Urine Nitrite (NEGATIVE) Urine Bilirubin (NEGATIVE) Urine Urobilinogen (NORMAL) E.U./dL Ur Leukocyte Esterase (NEGATIVE) Urine RBC (0-5) /HPF Urine WBC (0-5) /HPF Ur Squamous Epith Cells (<= Few) Urine Bacteria (None Seen) /HPF Ur Microscopic Review Urine Culture Comments Urine HCG, Qual Nasal Screen MRSA (PCR) (NEGATIVE) Urine Opiates Screen (NEGATIVE) Ur Oxycodone Screen (NEGATIVE) Urine Methadone Screen (NEGATIVE) Ur Propoxyphene Screen (NEGATIVE) Ur Barbiturates Screen (NEGATIVE) Ur Tricyclics Screen (NEGATIVE) Ur Phencyclidine Scrn (NEGATIVE) Ur Amphetamine Screen (NEGATIVE) U Methamphetamines Scrn (NEGATIVE) U Benzodiazepines Scrn (NEGATIVE) Urine Cocaine Screen (NEGATIVE) U Cannabinoids Screen (NEGATIVE) Serum Ketones (NEGATIVE) 02/20/19 02/20/19 02/20/19 Range/Units 21:08 21:08 19:54 WBC (4.8-10.8) x10^3/uL RBC (4.20-5.40) 10^6/uL Hgb (12.0-16.0) g/dL Hct (37.0-47.0) % MCV (81.0-99.0) fL MCH (27.0-31.0) pg MCHC (32.0-36.0) g/dL RDW (12.0-15.0) % Plt Count (130-450) 10^3/uL MPV (7.9-10.8) fL Neut # (Auto) (1.5-6.6) 10^3/uL Lymph # (Auto) (1.5-3.5) 10^3/uL White # (Auto) (0.0-1.0) 10^3/uL Eos # (Auto) (0.0-0.7) 10^3/uL Baso # (Auto) (0.0-0.1) 10^3/uL Absolute Nucleated RBC x10^3/uL Total Counted Band Neuts % (Manual) (0 - 10) % Abnorm Lymph % (Manual) % Nucleated RBC % /100WBC Neutrophils # (Manual) (1.5-6.6) 10^3/uL Lymphocytes # (Manual) (1.5-3.5) 10^3/uL Monocytes # (Manual) (0.0-1.0) 10^3/uL Eosinophils # (Manual) (0-0.7) 10^3/uL Basophils # (Manual) (0-0.1) 10^3/uL Differential Comment Manual Slide Review WBC Morphology (NORMAL) Platelet Estimate (NORMAL) Platelet Morphology (NORMAL) RBC Morph Micro Appear (NORMAL) VBG pH (7.31-7.41) VBG pCO2 (41-51) mmHg VBG pO2 (25-47) mmHg VBG HCO3 (23-28) mmol/L VBG Total CO2 (24-29) mmol/L VBG O2 Saturation (60-80) % VBG Base Excess (-2 - +2) mmol/L Ionized Calcium (1.15-1.33) mmol/L Sodium (135-145) mmol/L Potassium 4.7 (3.5-5.0) mmol/L Chloride (101-111) mmol/L Carbon Dioxide (21-32) mmol/L Anion Gap (6-13) BUN (6-20) mg/dL Creatinine (0.4-1.0) mg/dL Estimated GFR (MDRD) (>89) Glucose (70-100) mg/dL POC Whole Bld Glucose 167 H (70 - 100) mg/dL Glycated Hemoglobin (4.6-6.2) % Estim Average Glucose (70-100) Lactic Acid (0.5-2.2) mmol/L Calcium (8.5-10.3) mg/dL Phosphorus 3.0 (2.5-4.6) mg/dL Magnesium 1.6 L (1.7-2.8) mg/dL Total Bilirubin (0.2-1.0) mg/dL AST (10-42) IU/L ALT (10-60) IU/L Alkaline Phosphatase (42-121) IU/L Total Protein (6.7-8.2) g/dL Albumin (3.2-5.5) g/dL Globulin (2.1-4.2) g/dL Albumin/Globulin Ratio (1.0-2.2) Lipase (22-51) U/L Urine Color Urine Clarity (CLEAR) Urine pH (5.0-7.5) PH Ur Specific [place] (1.002-1.030) Urine Protein (NEGATIVE) mg/dL Urine Glucose (UA) (NEGATIVE) mg/dL Urine Ketones (NEGATIVE) mg/dL Urine Occult Blood (NEGATIVE) Urine Nitrite (NEGATIVE) Urine Bilirubin (NEGATIVE) Urine Urobilinogen (NORMAL) E.U./dL Ur Leukocyte Esterase (NEGATIVE) Urine RBC (0-5) /HPF Urine WBC (0-5) /HPF Ur Squamous Epith Cells (<= Few) Urine Bacteria (None Seen) /HPF Ur Microscopic Review Urine Culture Comments Urine HCG, Qual Nasal Screen MRSA (PCR) (NEGATIVE) Urine Opiates Screen (NEGATIVE) Ur Oxycodone Screen (NEGATIVE) Urine Methadone Screen (NEGATIVE) Ur Propoxyphene Screen (NEGATIVE) Ur Barbiturates Screen (NEGATIVE) Ur Tricyclics Screen (NEGATIVE) Ur Phencyclidine Scrn (NEGATIVE) Ur Amphetamine Screen (NEGATIVE) U Methamphetamines Scrn (NEGATIVE) U Benzodiazepines Scrn (NEGATIVE) Urine Cocaine Screen (NEGATIVE) U Cannabinoids Screen (NEGATIVE) Serum Ketones (NEGATIVE) 02/20/19 02/20/19 02/20/19 Range/Units 19:17 18:17 16:54 WBC (4.8-10.8) x10^3/uL RBC (4.20-5.40) 10^6/uL Hgb (12.0-16.0) g/dL Hct (37.0-47.0) % MCV (81.0-99.0) fL MCH (27.0-31.0) pg MCHC (32.0-36.0) g/dL RDW (12.0-15.0) % Plt Count (130-450) 10^3/uL MPV (7.9-10.8) fL Neut # (Auto) (1.5-6.6) 10^3/uL Lymph # (Auto) (1.5-3.5) 10^3/uL White # (Auto) (0.0-1.0) 10^3/uL Eos # (Auto) (0.0-0.7) 10^3/uL Baso # (Auto) (0.0-0.1) 10^3/uL Absolute Nucleated RBC x10^3/uL Total Counted Band Neuts % (Manual) (0 - 10) % Abnorm Lymph % (Manual) % Nucleated RBC % /100WBC Neutrophils # (Manual) (1.5-6.6) 10^3/uL Lymphocytes # (Manual) (1.5-3.5) 10^3/uL Monocytes # (Manual) (0.0-1.0) 10^3/uL Eosinophils # (Manual) (0-0.7) 10^3/uL Basophils # (Manual) (0-0.1) 10^3/uL Differential Comment Manual Slide Review WBC Morphology (NORMAL) Platelet Estimate (NORMAL) Platelet Morphology (NORMAL) RBC Morph Micro Appear (NORMAL) VBG pH (7.31-7.41) VBG pCO2 (41-51) mmHg VBG pO2 (25-47) mmHg VBG HCO3 (23-28) mmol/L VBG Total CO2 (24-29) mmol/L VBG O2 Saturation (60-80) % VBG Base Excess (-2 - +2) mmol/L Ionized Calcium (1.15-1.33) mmol/L Sodium (135-145) mmol/L Potassium (3.5-5.0) mmol/L Chloride (101-111) mmol/L Carbon Dioxide (21-32) mmol/L Anion Gap (6-13) BUN (6-20) mg/dL Creatinine (0.4-1.0) mg/dL Estimated GFR (MDRD) (>89) Glucose (70-100) mg/dL POC Whole Bld Glucose 157 H 199 H 265 H (70 - 100) mg/dL Glycated Hemoglobin (4.6-6.2) % Estim Average Glucose (70-100) Lactic Acid (0.5-2.2) mmol/L Calcium (8.5-10.3) mg/dL Phosphorus (2.5-4.6) mg/dL Magnesium (1.7-2.8) mg/dL Total Bilirubin (0.2-1.0) mg/dL AST (10-42) IU/L ALT (10-60) IU/L Alkaline Phosphatase (42-121) IU/L Total Protein (6.7-8.2) g/dL Albumin (3.2-5.5) g/dL Globulin (2.1-4.2) g/dL Albumin/Globulin Ratio (1.0-2.2) Lipase (22-51) U/L Urine Color Urine Clarity (CLEAR) Urine pH (5.0-7.5) PH Ur Specific [place] (1.002-1.030) Urine Protein (NEGATIVE) mg/dL Urine Glucose (UA) (NEGATIVE) mg/dL Urine Ketones (NEGATIVE) mg/dL Urine Occult Blood (NEGATIVE) Urine Nitrite (NEGATIVE) Urine Bilirubin (NEGATIVE) Urine Urobilinogen (NORMAL) E.U./dL Ur Leukocyte Esterase (NEGATIVE) Urine RBC (0-5) /HPF Urine WBC (0-5) /HPF Ur Squamous Epith Cells (<= Few) Urine Bacteria (None Seen) /HPF Ur Microscopic Review Urine Culture Comments Urine HCG, Qual Nasal Screen MRSA (PCR) (NEGATIVE) Urine Opiates Screen (NEGATIVE) Ur Oxycodone Screen (NEGATIVE) Urine Methadone Screen (NEGATIVE) Ur Propoxyphene Screen (NEGATIVE) Ur Barbiturates Screen (NEGATIVE) Ur Tricyclics Screen (NEGATIVE) Ur Phencyclidine Scrn (NEGATIVE) Ur Amphetamine Screen (NEGATIVE) U Methamphetamines Scrn (NEGATIVE) U Benzodiazepines Scrn (NEGATIVE) Urine Cocaine Screen (NEGATIVE) U Cannabinoids Screen (NEGATIVE) Serum Ketones (NEGATIVE) 02/20/19 02/20/19 02/20/19 Range/Units 15:58 15:58 15:57 WBC (4.8-10.8) x10^3/uL RBC (4.20-5.40) 10^6/uL Hgb (12.0-16.0) g/dL Hct (37.0-47.0) % MCV (81.0-99.0) fL MCH (27.0-31.0) pg MCHC (32.0-36.0) g/dL RDW (12.0-15.0) % Plt Count (130-450) 10^3/uL MPV (7.9-10.8) fL Neut # (Auto) (1.5-6.6) 10^3/uL Lymph # (Auto) (1.5-3.5) 10^3/uL White # (Auto) (0.0-1.0) 10^3/uL Eos # (Auto) (0.0-0.7) 10^3/uL Baso # (Auto) (0.0-0.1) 10^3/uL Absolute Nucleated RBC x10^3/uL Total Counted Band Neuts % (Manual) (0 - 10) % Abnorm Lymph % (Manual) % Nucleated RBC % /100WBC Neutrophils # (Manual) (1.5-6.6) 10^3/uL Lymphocytes # (Manual) (1.5-3.5) 10^3/uL Monocytes # (Manual) (0.0-1.0) 10^3/uL Eosinophils # (Manual) (0-0.7) 10^3/uL Basophils # (Manual) (0-0.1) 10^3/uL Differential Comment Manual Slide Review WBC Morphology (NORMAL) Platelet Estimate (NORMAL) Platelet Morphology (NORMAL) RBC Morph Micro Appear (NORMAL) VBG pH (7.31-7.41) VBG pCO2 (41-51) mmHg VBG pO2 (25-47) mmHg VBG HCO3 (23-28) mmol/L VBG Total CO2 (24-29) mmol/L VBG O2 Saturation (60-80) % VBG Base Excess (-2 - +2) mmol/L Ionized Calcium (1.15-1.33) mmol/L Sodium 144 (135-145) mmol/L Potassium 4.8 (3.5-5.0) mmol/L Chloride 117 H (101-111) mmol/L Carbon Dioxide < 6 L* (21-32) mmol/L Anion Gap 21.0 H (6-13) BUN 26 H (6-20) mg/dL Creatinine 1.4 H (0.4-1.0) mg/dL Estimated GFR (MDRD) 42 L (>89) Glucose 367 H (70-100) mg/dL POC Whole Bld Glucose 336 H (70 - 100) mg/dL Glycated Hemoglobin (4.6-6.2) % Estim Average Glucose (70-100) Lactic Acid 3.9 H* (0.5-2.2) mmol/L Calcium 7.7 L (8.5-10.3) mg/dL Phosphorus 5.0 H (2.5-4.6) mg/dL Magnesium 1.9 (1.7-2.8) mg/dL Total Bilirubin (0.2-1.0) mg/dL AST (10-42) IU/L ALT (10-60) IU/L Alkaline Phosphatase (42-121) IU/L Total Protein (6.7-8.2) g/dL Albumin (3.2-5.5) g/dL Globulin (2.1-4.2) g/dL Albumin/Globulin Ratio (1.0-2.2) Lipase (22-51) U/L Urine Color Urine Clarity (CLEAR) Urine pH (5.0-7.5) PH Ur Specific [place] (1.002-1.030) Urine Protein (NEGATIVE) mg/dL Urine Glucose (UA) (NEGATIVE) mg/dL Urine Ketones (NEGATIVE) mg/dL Urine Occult Blood (NEGATIVE) Urine Nitrite (NEGATIVE) Urine Bilirubin (NEGATIVE) Urine Urobilinogen (NORMAL) E.U./dL Ur Leukocyte Esterase (NEGATIVE) Urine RBC (0-5) /HPF Urine WBC (0-5) /HPF Ur Squamous Epith Cells (<= Few) Urine Bacteria (None Seen) /HPF Ur Microscopic Review Urine Culture Comments Urine HCG, Qual Nasal Screen MRSA (PCR) (NEGATIVE) Urine Opiates Screen (NEGATIVE) Ur Oxycodone Screen (NEGATIVE) Urine Methadone Screen (NEGATIVE) Ur Propoxyphene Screen (NEGATIVE) Ur Barbiturates Screen (NEGATIVE) Ur Tricyclics Screen (NEGATIVE) Ur Phencyclidine Scrn (NEGATIVE) Ur Amphetamine Screen (NEGATIVE) U Methamphetamines Scrn (NEGATIVE) U Benzodiazepines Scrn (NEGATIVE) Urine Cocaine Screen (NEGATIVE) U Cannabinoids Screen (NEGATIVE) Serum Ketones (NEGATIVE) 02/20/19 02/20/19 02/20/19 Range/Units 15:06 14:10 14:06 WBC (4.8-10.8) x10^3/uL RBC (4.20-5.40) 10^6/uL Hgb (12.0-16.0) g/dL Hct (37.0-47.0) % MCV (81.0-99.0) fL MCH (27.0-31.0) pg MCHC (32.0-36.0) g/dL RDW (12.0-15.0) % Plt Count (130-450) 10^3/uL MPV (7.9-10.8) fL Neut # (Auto) (1.5-6.6) 10^3/uL Lymph # (Auto) (1.5-3.5) 10^3/uL White # (Auto) (0.0-1.0) 10^3/uL Eos # (Auto) (0.0-0.7) 10^3/uL Baso # (Auto) (0.0-0.1) 10^3/uL Absolute Nucleated RBC x10^3/uL Total Counted Band Neuts % (Manual) (0 - 10) % Abnorm Lymph % (Manual) % Nucleated RBC % /100WBC Neutrophils # (Manual) (1.5-6.6) 10^3/uL Lymphocytes # (Manual) (1.5-3.5) 10^3/uL Monocytes # (Manual) (0.0-1.0) 10^3/uL Eosinophils # (Manual) (0-0.7) 10^3/uL Basophils # (Manual) (0-0.1) 10^3/uL Differential Comment Manual Slide Review WBC Morphology (NORMAL) Platelet Estimate (NORMAL) Platelet Morphology (NORMAL) RBC Morph Micro Appear (NORMAL) VBG pH (7.31-7.41) VBG pCO2 (41-51) mmHg VBG pO2 (25-47) mmHg VBG HCO3 (23-28) mmol/L VBG Total CO2 (24-29) mmol/L VBG O2 Saturation (60-80) % VBG Base Excess (-2 - +2) mmol/L Ionized Calcium (1.15-1.33) mmol/L Sodium 142 (135-145) mmol/L Potassium 4.9 (3.5-5.0) mmol/L Chloride 112 H (101-111) mmol/L Carbon Dioxide < 6 L* (21-32) mmol/L Anion Gap 24.0 H (6-13) BUN 27 H (6-20) mg/dL Creatinine 1.4 H (0.4-1.0) mg/dL Estimated GFR (MDRD) 42 L (>89) Glucose 472 H (70-100) mg/dL POC Whole Bld Glucose 389 H 477 H (70 - 100) mg/dL Glycated Hemoglobin (4.6-6.2) % Estim Average Glucose (70-100) Lactic Acid (0.5-2.2) mmol/L Calcium 8.2 L (8.5-10.3) mg/dL Phosphorus (2.5-4.6) mg/dL Magnesium 2.2 (1.7-2.8) mg/dL Total Bilirubin (0.2-1.0) mg/dL AST (10-42) IU/L ALT (10-60) IU/L Alkaline Phosphatase (42-121) IU/L Total Protein (6.7-8.2) g/dL Albumin (3.2-5.5) g/dL Globulin (2.1-4.2) g/dL Albumin/Globulin Ratio (1.0-2.2) Lipase (22-51) U/L Urine Color Urine Clarity (CLEAR) Urine pH (5.0-7.5) PH Ur Specific [place] (1.002-1.030) Urine Protein (NEGATIVE) mg/dL Urine Glucose (UA) (NEGATIVE) mg/dL Urine Ketones (NEGATIVE) mg/dL Urine Occult Blood (NEGATIVE) Urine Nitrite (NEGATIVE) Urine Bilirubin (NEGATIVE) Urine Urobilinogen (NORMAL) E.U./dL Ur Leukocyte Esterase (NEGATIVE) Urine RBC (0-5) /HPF Urine WBC (0-5) /HPF Ur Squamous Epith Cells (<= Few) Urine Bacteria (None Seen) /HPF Ur Microscopic Review Urine Culture Comments Urine HCG, Qual Nasal Screen MRSA (PCR) (NEGATIVE) Urine Opiates Screen (NEGATIVE) Ur Oxycodone Screen (NEGATIVE) Urine Methadone Screen (NEGATIVE) Ur Propoxyphene Screen (NEGATIVE) Ur Barbiturates Screen (NEGATIVE) Ur Tricyclics Screen (NEGATIVE) Ur Phencyclidine Scrn (NEGATIVE) Ur Amphetamine Screen (NEGATIVE) U Methamphetamines Scrn (NEGATIVE) U Benzodiazepines Scrn (NEGATIVE) Urine Cocaine Screen (NEGATIVE) U Cannabinoids Screen (NEGATIVE) Serum Ketones (NEGATIVE) 02/20/19 02/20/19 02/20/19 Range/Units 13:10 13:01 12:26 WBC (4.8-10.8) x10^3/uL RBC (4.20-5.40) 10^6/uL Hgb (12.0-16.0) g/dL Hct (37.0-47.0) % MCV (81.0-99.0) fL MCH (27.0-31.0) pg MCHC (32.0-36.0) g/dL RDW (12.0-15.0) % Plt Count (130-450) 10^3/uL MPV (7.9-10.8) fL Neut # (Auto) (1.5-6.6) 10^3/uL Lymph # (Auto) (1.5-3.5) 10^3/uL White # (Auto) (0.0-1.0) 10^3/uL Eos # (Auto) (0.0-0.7) 10^3/uL Baso # (Auto) (0.0-0.1) 10^3/uL Absolute Nucleated RBC x10^3/uL Total Counted Band Neuts % (Manual) (0 - 10) % Abnorm Lymph % (Manual) % Nucleated RBC % /100WBC Neutrophils # (Manual) (1.5-6.6) 10^3/uL Lymphocytes # (Manual) (1.5-3.5) 10^3/uL Monocytes # (Manual) (0.0-1.0) 10^3/uL Eosinophils # (Manual) (0-0.7) 10^3/uL Basophils # (Manual) (0-0.1) 10^3/uL Differential Comment Manual Slide Review WBC Morphology (NORMAL) Platelet Estimate (NORMAL) Platelet Morphology (NORMAL) RBC Morph Micro Appear (NORMAL) VBG pH (7.31-7.41) VBG pCO2 (41-51) mmHg VBG pO2 (25-47) mmHg VBG HCO3 (23-28) mmol/L VBG Total CO2 (24-29) mmol/L VBG O2 Saturation (60-80) % VBG Base Excess (-2 - +2) mmol/L Ionized Calcium (1.15-1.33) mmol/L Sodium (135-145) mmol/L Potassium (3.5-5.0) mmol/L Chloride (101-111) mmol/L Carbon Dioxide (21-32) mmol/L Anion Gap (6-13) BUN (6-20) mg/dL Creatinine (0.4-1.0) mg/dL Estimated GFR (MDRD) (>89) Glucose (70-100) mg/dL POC Whole Bld Glucose 482 H (70 - 100) mg/dL Glycated Hemoglobin 12.1 H (4.6-6.2) % Estim Average Glucose 301 H (70-100) Lactic Acid (0.5-2.2) mmol/L Calcium (8.5-10.3) mg/dL Phosphorus (2.5-4.6) mg/dL Magnesium (1.7-2.8) mg/dL Total Bilirubin (0.2-1.0) mg/dL AST (10-42) IU/L ALT (10-60) IU/L Alkaline Phosphatase (42-121) IU/L Total Protein (6.7-8.2) g/dL Albumin (3.2-5.5) g/dL Globulin (2.1-4.2) g/dL Albumin/Globulin Ratio (1.0-2.2) Lipase (22-51) U/L Urine Color Urine Clarity (CLEAR) Urine pH (5.0-7.5) PH Ur Specific [place] (1.002-1.030) Urine Protein (NEGATIVE) mg/dL Urine Glucose (UA) (NEGATIVE) mg/dL Urine Ketones (NEGATIVE) mg/dL Urine Occult Blood (NEGATIVE) Urine Nitrite (NEGATIVE) Urine Bilirubin (NEGATIVE) Urine Urobilinogen (NORMAL) E.U./dL Ur Leukocyte Esterase (NEGATIVE) Urine RBC (0-5) /HPF Urine WBC (0-5) /HPF Ur Squamous Epith Cells (<= Few) Urine Bacteria (None Seen) /HPF Ur Microscopic Review Urine Culture Comments Urine HCG, Qual Nasal Screen MRSA (PCR) NEGATIVE (NEGATIVE) Urine Opiates Screen (NEGATIVE) Ur Oxycodone Screen (NEGATIVE) Urine Methadone Screen (NEGATIVE) Ur Propoxyphene Screen (NEGATIVE) Ur Barbiturates Screen (NEGATIVE) Ur Tricyclics Screen (NEGATIVE) Ur Phencyclidine Scrn (NEGATIVE) Ur Amphetamine Screen (NEGATIVE) U Methamphetamines Scrn (NEGATIVE) U Benzodiazepines Scrn (NEGATIVE) Urine Cocaine Screen (NEGATIVE) U Cannabinoids Screen (NEGATIVE) Serum Ketones (NEGATIVE) 02/20/19 02/20/19 02/20/19 Range/Units 12:26 09:39 09:36 WBC 25.6 H (4.8-10.8) x10^3/uL RBC 4.08 L (4.20-5.40) 10^6/uL Hgb 13.5 (12.0-16.0) g/dL Hct 46.5 (37.0-47.0) % MCV 114.0 H (81.0-99.0) fL MCH 33.1 H (27.0-31.0) pg MCHC 29.0 L (32.0-36.0) g/dL RDW 14.8 (12.0-15.0) % Plt Count 399 (130-450) 10^3/uL MPV 10.3 (7.9-10.8) fL Neut # (Auto) 21.8 H (1.5-6.6) 10^3/uL Lymph # (Auto) 1.4 L (1.5-3.5) 10^3/uL White # (Auto) 1.5 H (0.0-1.0) 10^3/uL Eos # (Auto) 0.0 (0.0-0.7) 10^3/uL Baso # (Auto) 0.1 (0.0-0.1) 10^3/uL Absolute Nucleated RBC 0.00 x10^3/uL Total Counted Band Neuts % (Manual) (0 - 10) % Abnorm Lymph % (Manual) % Nucleated RBC % 0.0 /100WBC Neutrophils # (Manual) (1.5-6.6) 10^3/uL Lymphocytes # (Manual) (1.5-3.5) 10^3/uL Monocytes # (Manual) (0.0-1.0) 10^3/uL Eosinophils # (Manual) (0-0.7) 10^3/uL Basophils # (Manual) (0-0.1) 10^3/uL Differential Comment Manual Slide Review Indicated WBC Morphology (NORMAL) Platelet Estimate (NORMAL) Platelet Morphology (NORMAL) RBC Morph Micro Appear 1+ ANISOCYTOSIS (NORMAL) VBG pH (7.31-7.41) VBG pCO2 (41-51) mmHg VBG pO2 (25-47) mmHg VBG HCO3 (23-28) mmol/L VBG Total CO2 (24-29) mmol/L VBG O2 Saturation (60-80) % VBG Base Excess (-2 - +2) mmol/L Ionized Calcium (1.15-1.33) mmol/L Sodium 141 (135-145) mmol/L Potassium 5.2 H (3.5-5.0) mmol/L Chloride 110 (101-111) mmol/L Carbon Dioxide < 6 L* (21-32) mmol/L Anion Gap 25.0 H (6-13) BUN 27 H (6-20) mg/dL Creatinine 1.5 H (0.4-1.0) mg/dL Estimated GFR (MDRD) 39 L (>89) Glucose 616 H* (70-100) mg/dL POC Whole Bld Glucose (70 - 100) mg/dL Glycated Hemoglobin (4.6-6.2) % Estim Average Glucose (70-100) Lactic Acid (0.5-2.2) mmol/L Calcium 8.1 L (8.5-10.3) mg/dL Phosphorus (2.5-4.6) mg/dL Magnesium 2.3 (1.7-2.8) mg/dL Total Bilirubin (0.2-1.0) mg/dL AST (10-42) IU/L ALT (10-60) IU/L Alkaline Phosphatase (42-121) IU/L Total Protein (6.7-8.2) g/dL Albumin (3.2-5.5) g/dL Globulin (2.1-4.2) g/dL Albumin/Globulin Ratio (1.0-2.2) Lipase (22-51) U/L Urine Color Urine Clarity (CLEAR) Urine pH (5.0-7.5) PH Ur Specific [place] (1.002-1.030) Urine Protein (NEGATIVE) mg/dL Urine Glucose (UA) (NEGATIVE) mg/dL Urine Ketones (NEGATIVE) mg/dL Urine Occult Blood (NEGATIVE) Urine Nitrite (NEGATIVE) Urine Bilirubin (NEGATIVE) Urine Urobilinogen (NORMAL) E.U./dL Ur Leukocyte Esterase (NEGATIVE) Urine RBC (0-5) /HPF Urine WBC (0-5) /HPF Ur Squamous Epith Cells (<= Few) Urine Bacteria (None Seen) /HPF Ur Microscopic Review Urine Culture Comments Urine HCG, Qual Nasal Screen MRSA (PCR) (NEGATIVE) Urine Opiates Screen NEGATIVE (NEGATIVE) Ur Oxycodone Screen NEGATIVE (NEGATIVE) Urine Methadone Screen NEGATIVE (NEGATIVE) Ur Propoxyphene Screen NEGATIVE (NEGATIVE) Ur Barbiturates Screen NEGATIVE (NEGATIVE) Ur Tricyclics Screen NEGATIVE (NEGATIVE) Ur Phencyclidine Scrn NEGATIVE (NEGATIVE) Ur Amphetamine Screen NEGATIVE (NEGATIVE) U Methamphetamines Scrn NEGATIVE (NEGATIVE) U Benzodiazepines Scrn NEGATIVE (NEGATIVE) Urine Cocaine Screen NEGATIVE (NEGATIVE) U Cannabinoids Screen NEGATIVE (NEGATIVE) Serum Ketones (NEGATIVE) 02/20/19 02/20/19 02/20/19 Range/Units 09:36 09:36 09:36 WBC (4.8-10.8) x10^3/uL RBC (4.20-5.40) 10^6/uL Hgb (12.0-16.0) g/dL Hct (37.0-47.0) % MCV (81.0-99.0) fL MCH (27.0-31.0) pg MCHC (32.0-36.0) g/dL RDW (12.0-15.0) % Plt Count (130-450) 10^3/uL MPV (7.9-10.8) fL Neut # (Auto) (1.5-6.6) 10^3/uL Lymph # (Auto) (1.5-3.5) 10^3/uL White # (Auto) (0.0-1.0) 10^3/uL Eos # (Auto) (0.0-0.7) 10^3/uL Baso # (Auto) (0.0-0.1) 10^3/uL Absolute Nucleated RBC x10^3/uL Total Counted Band Neuts % (Manual) (0 - 10) % Abnorm Lymph % (Manual) % Nucleated RBC % /100WBC Neutrophils # (Manual) (1.5-6.6) 10^3/uL Lymphocytes # (Manual) (1.5-3.5) 10^3/uL Monocytes # (Manual) (0.0-1.0) 10^3/uL Eosinophils # (Manual) (0-0.7) 10^3/uL Basophils # (Manual) (0-0.1) 10^3/uL Differential Comment Manual Slide Review WBC Morphology (NORMAL) Platelet Estimate (NORMAL) Platelet Morphology (NORMAL) RBC Morph Micro Appear (NORMAL) VBG pH 6.735 L (7.31-7.41) VBG pCO2 18.3 L (41-51) mmHg VBG pO2 88.1 H (25-47) mmHg VBG HCO3 2.4 L (23-28) mmol/L VBG Total CO2 3.0 L (24-29) mmol/L VBG O2 Saturation 90.5 H (60-80) % VBG Base Excess -32.9 L (-2 - +2) mmol/L Ionized Calcium (1.15-1.33) mmol/L Sodium (135-145) mmol/L Potassium (3.5-5.0) mmol/L Chloride (101-111) mmol/L Carbon Dioxide (21-32) mmol/L Anion Gap (6-13) BUN (6-20) mg/dL Creatinine (0.4-1.0) mg/dL Estimated GFR (MDRD) (>89) Glucose (70-100) mg/dL POC Whole Bld Glucose (70 - 100) mg/dL Glycated Hemoglobin (4.6-6.2) % Estim Average Glucose (70-100) Lactic Acid 2.9 H (0.5-2.2) mmol/L Calcium (8.5-10.3) mg/dL Phosphorus (2.5-4.6) mg/dL Magnesium (1.7-2.8) mg/dL Total Bilirubin (0.2-1.0) mg/dL AST (10-42) IU/L ALT (10-60) IU/L Alkaline Phosphatase (42-121) IU/L Total Protein (6.7-8.2) g/dL Albumin (3.2-5.5) g/dL Globulin (2.1-4.2) g/dL Albumin/Globulin Ratio (1.0-2.2) Lipase (22-51) U/L Urine Color YELLOW Urine Clarity CLEAR (CLEAR) Urine pH 6.0 (5.0-7.5) PH Ur Specific [place] [facility] 1.025 (1.002-1.030) Urine Protein 30 H (NEGATIVE) mg/dL Urine Glucose (UA) 500 H (NEGATIVE) mg/dL Urine Ketones >=80 H (NEGATIVE) mg/dL Urine Occult Blood TRACE-LYSE (NEGATIVE) Urine Nitrite NEGATIVE (NEGATIVE) Urine Bilirubin NEGATIVE (NEGATIVE) Urine Urobilinogen 0.2 (NORMAL) (NORMAL) E.U./dL Ur Leukocyte Esterase NEGATIVE (NEGATIVE) Urine RBC 0-5 (0-5) /HPF Urine WBC 0-3 (0-5) /HPF Ur Squamous Epith Cells NONE SEEN (<= Few) Urine Bacteria Rare (None Seen) /HPF Ur Microscopic Review INDICATED Urine Culture Comments NOT INDICATED Urine HCG, Qual NEGATIVE Nasal Screen MRSA (PCR) (NEGATIVE) Urine Opiates Screen (NEGATIVE) Ur Oxycodone Screen (NEGATIVE) Urine Methadone Screen (NEGATIVE) Ur Propoxyphene Screen (NEGATIVE) Ur Barbiturates Screen (NEGATIVE) Ur Tricyclics Screen (NEGATIVE) Ur Phencyclidine Scrn (NEGATIVE) Ur Amphetamine Screen (NEGATIVE) U Methamphetamines Scrn (NEGATIVE) U Benzodiazepines Scrn (NEGATIVE) Urine Cocaine Screen (NEGATIVE) U Cannabinoids Screen (NEGATIVE) Serum Ketones (NEGATIVE) 02/20/19 Range/Units 09:36 WBC (4.8-10.8) x10^3/uL RBC (4.20-5.40) 10^6/uL Hgb (12.0-16.0) g/dL Hct (37.0-47.0) % MCV (81.0-99.0) fL MCH (27.0-31.0) pg MCHC (32.0-36.0) g/dL RDW (12.0-15.0) % Plt Count (130-450) 10^3/uL MPV (7.9-10.8) fL Neut # (Auto) (1.5-6.6) 10^3/uL Lymph # (Auto) (1.5-3.5) 10^3/uL White # (Auto) (0.0-1.0) 10^3/uL Eos # (Auto) (0.0-0.7) 10^3/uL Baso # (Auto) (0.0-0.1) 10^3/uL Absolute Nucleated RBC x10^3/uL Total Counted Band Neuts % (Manual) (0 - 10) % Abnorm Lymph % (Manual) % Nucleated RBC % /100WBC Neutrophils # (Manual) (1.5-6.6) 10^3/uL Lymphocytes # (Manual) (1.5-3.5) 10^3/uL Monocytes # (Manual) (0.0-1.0) 10^3/uL Eosinophils # (Manual) (0-0.7) 10^3/uL Basophils # (Manual) (0-0.1) 10^3/uL Differential Comment Manual Slide Review WBC Morphology (NORMAL) Platelet Estimate (NORMAL) Platelet Morphology (NORMAL) RBC Morph Micro Appear (NORMAL) VBG pH (7.31-7.41) VBG pCO2 (41-51) mmHg VBG pO2 (25-47) mmHg VBG HCO3 (23-28) mmol/L VBG Total CO2 (24-29) mmol/L VBG O2 Saturation (60-80) % VBG Base Excess (-2 - +2) mmol/L Ionized Calcium (1.15-1.33) mmol/L Sodium 139 (135-145) mmol/L Potassium 6.6 H* (3.5-5.0) mmol/L Chloride 105 (101-111) mmol/L Carbon Dioxide < 6 L* (21-32) mmol/L Anion Gap 28.0 H (6-13) BUN 25 H (6-20) mg/dL Creatinine 1.6 H (0.4-1.0) mg/dL Estimated GFR (MDRD) 36 L (>89) Glucose 774 H* (70-100) mg/dL POC Whole Bld Glucose (70 - 100) mg/dL Glycated Hemoglobin (4.6-6.2) % Estim Average Glucose (70-100) Lactic Acid (0.5-2.2) mmol/L Calcium 8.9 (8.5-10.3) mg/dL Phosphorus (2.5-4.6) mg/dL Magnesium (1.7-2.8) mg/dL Total Bilirubin 2.1 H (0.2-1.0) mg/dL AST 26 (10-42) IU/L ALT 21 (10-60) IU/L Alkaline Phosphatase 83 (42-121) IU/L Total Protein 6.8 (6.7-8.2) g/dL Albumin 3.5 (3.2-5.5) g/dL Globulin 3.3 (2.1-4.2) g/dL Albumin/Globulin Ratio 1.1 (1.0-2.2) Lipase 54 H (22-51) U/L Urine Color Urine Clarity (CLEAR) Urine pH (5.0-7.5) PH Ur Specific [place] [facility] (1.002-1.030) Urine Protein (NEGATIVE) mg/dL Urine Glucose (UA) (NEGATIVE) mg/dL Urine Ketones (NEGATIVE) mg/dL Urine Occult Blood (NEGATIVE) Urine Nitrite (NEGATIVE) Urine Bilirubin (NEGATIVE) Urine Urobilinogen (NORMAL) E.U./dL Ur Leukocyte Esterase (NEGATIVE) Urine RBC (0-5) /HPF Urine WBC (0-5) /HPF Ur Squamous Epith Cells (<= Few) Urine Bacteria (None Seen) /HPF Ur Microscopic Review Urine Culture Comments Urine HCG, Qual Nasal Screen MRSA (PCR) (NEGATIVE) Urine Opiates Screen (NEGATIVE) Ur Oxycodone Screen (NEGATIVE) Urine Methadone Screen (NEGATIVE) Ur Propoxyphene Screen (NEGATIVE) Ur Barbiturates Screen (NEGATIVE) Ur Tricyclics Screen (NEGATIVE) Ur Phencyclidine Scrn (NEGATIVE) Ur Amphetamine Screen (NEGATIVE) U Methamphetamines Scrn (NEGATIVE) U Benzodiazepines Scrn (NEGATIVE) Urine Cocaine Screen (NEGATIVE) U Cannabinoids Screen (NEGATIVE) Serum Ketones MODERATE H (NEGATIVE) Assessment/Plan - Problem List (1) Metabolic encephalopathy Impression: Resolved secondary to DKA Type 1. She started waking up by late afternoon yesterday and has been tearful, but appropriate. Gaps in memory. This am lucid, asking questions. MUDDs was negative except for ketones. (2) DKA (diabetic ketoacidoses) Conclusion/Plan: Cause in the past has been pump failure with elements of noncompliance. Since her CXR is abnormal also being treated for pneumonia. Plan: On the insulin drip, her electrolytes have started to normalize. Her anion gap was 28. By last night it had come down to 13. This morning is 12. Glucose is in the 100s this morning. Carbon dioxide, which used to be less than 6, is still very low at 10. Chloride is coming up to 121 and fluids of been adjusted. Lactic acid was 2.9 and admission. By yesterday evening it was up to 4.3. In the therapy director hours of today she had come down to 1.8 but at 4 in the morning she is 5.6 and repeat is 5.4. We thought it was lab error but she is still has lactic acidosis that is severe. We will continue to use insulin drip until her acidosis is resolved. Keep her n.p.o. She can still have water and ice just not food until acidosis has resolved. Qualifiers: Diabetes mellitus type: type 1 Diabetes mellitus complication detail: without coma Qualified Code(s): E10.10 - Type 1 diabetes mellitus with ketoacidosis without coma (3) Type 1 diabetes, uncontrolled, with nonproliferative retinopathy with macular edema Conclusion/Plan: Due to pump failure and noncompliance with use of her Lantus and short acting insulin when pump had failed. Long talk with her yesterday. There are elements of marital discord. Concern for his career. Her concern for the [facility]. He would like me to speak to her today. (4) Electrolyte and fluid disorder Conclusion/Plan: Secondary to fluid shifts from her diabetes and uncontrolled sugars. Associated with lactic acidosis and hyperkalemia and acute kidney injury. Being monitored closely by nursing with electrolyte protocol. Potassium is been given appropriately as is calcium and magnesium and phosphorus as necessary. She received just a little over 5 L and positive fluid balance yesterday. Between yesterday and today she is put out 1225 cc of urine. She is profoundly dehydrated when she came in with us. We will continue to give aggressive IV fluids and monitor her electrolytes. Plan: Electrolyte protocol per ICU Monitor labs daily Aggressive IV fluid resuscitation as indicated above (5) Abnormal chest xray Conclusion/Plan: This patient does not have any antecedent review of systems indicating fever, cough, chills, chest congestion. But her white cell count is elevated to 25.6. She is not hypoxic. Not tachypneic. Day #2 rocephin and azithromycin. Plan: Empiric antibiotic therapy for pneumonia in a patient is critically ill with DKA, metabolic derangement, and severe lactic acidosis (2) DKA (diabetic ketoacidoses) Qualifiers: Qualified Code(s): E10.10 - Type 1 diabetes mellitus with ketoacidosis without coma
[2019-02-21] MEDS: DEXTROSE 5%-0.45% NACL 1,000 ML IV SCH ×2 (07:52→16:19)
[2019-02-21 07:53] LABS: HEMOGLOBIN A1C 1.22 g/dL; HEMOGLOBIN A1C % 12.3 % (4.6-6.2)
[2019-02-21] MEDS: SODIUM CHLORIDE 0.45% 1,000 ML IV SCH ×2 (07:54→20:32)
[2019-02-21 08:06] LABS: THYROID STIMULATING HORMONE 2.27 uIU/mL (0.34-5.60)
[2019-02-21 08:17] LABS: FOLATE 6.21 ng/mL (5.90 - >24.8)
[2019-02-21] MEDS: AZITHROMYCIN INJ 500 MG in SODIUM CHLORIDE 0.9% 250 ML IV SCH (08:46)
[2019-02-21] MEDS: ENOXAPARIN 40 MG/0.4 ML SYRINGE SUBQ SCH (09:25)
[2019-02-21] MEDS: POLYETHYLENE GLYCOL 3350 17 GM PACKET PO SCH (09:39)
[2019-02-21] MEDS: cefTRIAXone 1 GM in SODIUM CHLORIDE 0.9% MINIBAG 100 ML IV SCH (09:41)
[2019-02-21 10:27] LABS: MAGNESIUM 2.6 mg/dL (1.7-2.8); PHOSPHORUS 2.5 mg/dL (2.5-4.6)
[2019-02-21 15:07] LABS: MAGNESIUM 2.4 mg/dL (1.7-2.8); PHOSPHORUS 1.9 mg/dL (2.5-4.6)
[2019-02-21] MEDS: INSULIN REGULAR HUMAN 100 UNIT in SODIUM CHLORIDE 0.9% 100ML 99 ML IV SCH ×2 (16:19→23:53)
[2019-02-21] MEDS: INSULIN ASPART 300 UNIT/3 ML PEN SUBQ SCH (20:34)
[2019-02-21 21:50] LABS: VBG PH 7.288 (7.31-7.41)
[2019-02-21] MEDS ORDERED: CALCIUM GLUCONATE 1,000 MG in SODIUM CHLORIDE 0.9% 50 ML IV ONE (22:56)
[2019-02-22] MEDS: DEXTROSE 5%-0.45% NACL 1,000 ML IV SCH ×3 (00:46→17:24)
[2019-02-22] MEDS: SODIUM CHLORIDE FLUSH 0.9% 10 ML SYRINGE IVP SCH ×3 (03:28→19:07)
[2019-02-22] MEDS: SODIUM CHLORIDE FLUSH 0.9% 10 ML SYRINGE IVP PRN ×2 (05:03→09:00)
[2019-02-22 05:33] LABS: CALCIUM 7.4 mg/dL (8.5-10.3)
[2019-02-22 05:34] LABS: CALCIUM 7.4 mg/dL (8.5-10.3); CREATININE 0.9 mg/dL (0.4-1.0); MAGNESIUM 2.3 mg/dL (1.7-2.8); PHOSPHORUS 2.1 mg/dL (2.5-4.6)
[2019-02-22 05:36] LABS: VBG PH 7.298 (7.31-7.41)
[2019-02-22] MEDS: POTASSIUM CHLOR 20 MEQ/100 ML 20 MEQ/100 ML BAG IV SCH ×2 (06:35→07:43)
[2019-02-22] MEDS: PANTOPRAZOLE 40 MG VIAL IVP SCH (06:35)
[2019-02-22] MEDS: INSULIN ASPART 300 UNIT/3 ML PEN SUBQ SCH ×4 (07:45→21:01)
[2019-02-22] MEDS ORDERED: POTASSIUM PHOSPHATE 15 MMOL in SODIUM CHLORIDE 0.9% 250 ML IV ONE (08:00)
[2019-02-22] MEDS: AZITHROMYCIN INJ 500 MG in SODIUM CHLORIDE 0.9% 250 ML IV SCH (08:59)
[2019-02-22] MEDS: cefTRIAXone 1 GM in SODIUM CHLORIDE 0.9% MINIBAG 100 ML IV SCH (10:07)
[2019-02-22] MEDS: ENOXAPARIN 40 MG/0.4 ML SYRINGE SUBQ SCH (10:08)
[2019-02-22] MEDS: POLYETHYLENE GLYCOL 3350 17 GM PACKET PO SCH (10:09)
[2019-02-22] MEDS ORDERED: PROCHLORPERAZINE 10 MG/2 ML VIAL IVP PRN (10:32)
[2019-02-22] MEDS: SODIUM CHLORIDE 0.45% 1,000 ML IV SCH (10:46)
--- NOTE | 2019-02-22 10:46 | PROVIDER PROGRESS NOTE ---
Subjective - Prog Note Date Prog Note Date: 02/22/19 Prog Note Time: 11:03 - Subjective Subjective: she is sleeping all the time, covers over her head, minimally interactiv with family. tearful, depressed. Current Medications - Current Medications Current Medications: Active Medications Acetaminophen (Tylenol) 650 mg PO Q4HR PRN PRN Reason: Pain 1 to 4 Calcium Carbonate/Glycine (Tums) 500 mg PO BID [facility] Enoxaparin Sodium (Lovenox) 40 mg SUBQ DAILY [facility] Last Admin: 02/22/19 10:08 Dose: Not Given Insulin Human Regular 100 unit (/ Sodium Chloride) 100 mls @ 6 mls/hr IV .[id number] [facility]; Protocol Last Admin: 02/21/19 23:53 Dose: Not Given Ceftriaxone Sodium 1 gm/ (Sodium Chloride) 100 mls @ 200 mls/hr IV DAILY [facility] Last Admin: 02/22/19 10:07 Dose: 200 mls/hr Norepinephrine Bitartrate 8 mg (/ Dextrose) 250 mls @ 0 mls/hr IV .Q0M [facility]; Protocol Dextrose/Sodium Chloride (D5.45ns) 1,000 mls @ 125 mls/hr IV .Q8H [facility] Last Admin: 02/22/19 09:21 Dose: 125 mls/hr Sodium Chloride (Normal Saline 0.45%) 1,000 mls @ 75 mls/hr IV .[id number] [facility] Last Admin: 02/22/19 10:46 Dose: 75 mls/hr Potassium Phosphate 15 mmol/ (Sodium Chloride) 255 mls @ 63 mls/hr IV ONCE ONE; Protocol Stop: 02/22/19 12:02 Last Admin: 02/22/19 08:32 Dose: 63 mls/hr Insulin Aspart (Novolog) 1 - 9 unit SUBQ 0800,1200,1700,2100 [facility]; Protocol Last Admin: 02/22/19 07:45 Dose: Not Given Ondansetron HCl (Zofran Inj) 4 mg IVP Q6HR PRN PRN Reason: Nausea / Vomiting Last Admin: 02/21/19 09:24 Dose: 4 mg Ondansetron HCl (Zofran Odt) 4 mg TL Q6HR PRN PRN Reason: Nausea / Vomiting Pantoprazole Sodium (Protonix) 40 mg IVP QDAC [facility] Last Admin: 02/22/19 06:35 Dose: 40 mg Polyethylene Glycol (Miralax) 17 gm PO DAILY [facility] Last Admin: 02/22/19 10:09 Dose: Not Given Prochlorperazine Edisylate (Compazine Inj) 10 mg IVP Q4HR PRN PRN Reason: Nausea / Vomiting Sodium Chloride (Normal Saline Flush 0.9%) 10 ml IVP PRN PRN PRN Reason: NEEDED PER PROVIDER ORDERS Last Admin: 02/22/19 09:00 Dose: 10 ml Sodium Chloride (Normal Saline Flush 0.9%) 10 ml IVP 0100,0900,1700 [facility] Last Admin: 02/22/19 10:09 Dose: 10 ml Sodium Chloride (Normal Saline Flush 0.9%) 20 ml IVP PRN PRN PRN Reason: After Blood Draw Last Admin: 02/21/19 21:14 Dose: 20 ml Dorzolamide/Timolol Ophth Soln [Cosopt] 1 drops RIGHTEYE BID 04/03/17 Insulin Lispro [Humalog] 100 unit SQ DAILY 04/03/17 Objective - Vital Signs/Intake & Output Reviewed Vital Signs: Yes Vital Signs: Vital Signs Temp Pulse Resp BP Pulse Ox 02/22/19 10:00 36.9 C 92 19 118/75 99 02/22/19 09:00 96 14 94 02/22/19 08:00 93 16 121/66 97 Intake & Output: Intake & Output 02/19/19 02/20/19 02/21/19 02/22/19 23:59 23:59 23:59 23:59 Intake Total 5556.25 6810.891 2260 Output Total 400 2375 2000 Balance 5156.25 4435.891 260 - Objective General Appearance: positive: No acute distress, Alert Eyes Bilateral: positive: PERRL ENT: positive: Dry mucous membranes, Other (face is still swollen at cheeks but no mouth lesions, abcessess seen) Neck: positive: No JVD Respiratory: positive: Chest non-tender. negative: Wheezes, Rales, Rhonchi Abdomen: positive: Nml bowel sounds, No distention, Tenderness (epigastrium). negative: Guarding, Rebound Skin: positive: Warm, Dry Extremities: positive: Full ROM, No pedal edema Neurologic/Psychiatric: positive: Oriented x3, CN's nml (2-12), Motor nml. negative: Mood/affect nml (depressed, tearful, fearful, withdrawn) - Lab Results Fish Bones: 02/21/19 04:43 02/22/19 05:00 Other Labs: Lab Results x24hrs 02/22/19 02/22/19 02/22/19 Range/Units 10:27 07:38 05:00 VBG pH 7.298 L (7.31-7.41) Ionized Calcium 1.12 L (1.15-1.33) mmol/L Sodium (135-145) mmol/L Potassium (3.5-5.0) mmol/L Chloride (101-111) mmol/L Carbon Dioxide (21-32) mmol/L Anion Gap (6-13) BUN (6-20) mg/dL Creatinine (0.4-1.0) mg/dL Estimated GFR (MDRD) (>89) Glucose (70-100) mg/dL POC Whole Bld Glucose 110 H 90 (70 - 100) mg/dL Lactic Acid (0.5-2.2) mmol/L Calcium (8.5-10.3) mg/dL Phosphorus (2.5-4.6) mg/dL Magnesium (1.7-2.8) mg/dL 02/22/19 02/22/19 02/22/19 Range/Units 05:00 05:00 03:07 VBG pH (7.31-7.41) Ionized Calcium YES (1.15-1.33) mmol/L Sodium 144 (135-145) mmol/L Potassium 3.0 L (3.5-5.0) mmol/L Chloride 120 H* (101-111) mmol/L Carbon Dioxide 16 L (21-32) mmol/L Anion Gap 8.0 (6-13) BUN 12 (6-20) mg/dL Creatinine 0.9 (0.4-1.0) mg/dL Estimated GFR (MDRD) 70 L (>89) Glucose 89 (70-100) mg/dL POC Whole Bld Glucose 85 (70 - 100) mg/dL Lactic Acid (0.5-2.2) mmol/L Calcium 7.4 L 7.4 L (8.5-10.3) mg/dL Phosphorus 2.1 L (2.5-4.6) mg/dL Magnesium 2.3 (1.7-2.8) mg/dL 02/21/19 02/21/19 02/21/19 Range/Units 21:35 20:30 20:30 VBG pH 7.288 L (7.31-7.41) Ionized Calcium 1.09 L (1.15-1.33) mmol/L Sodium 143 (135-145) mmol/L Potassium 3.6 (3.5-5.0) mmol/L Chloride 120 H* (101-111) mmol/L Carbon Dioxide 15 L (21-32) mmol/L Anion Gap 8.0 (6-13) BUN 15 (6-20) mg/dL Creatinine 1.0 (0.4-1.0) mg/dL Estimated GFR (MDRD) 62 L (>89) Glucose 100 (70-100) mg/dL POC Whole Bld Glucose (70 - 100) mg/dL Lactic Acid 2.7 H (0.5-2.2) mmol/L Calcium 7.0 L (8.5-10.3) mg/dL Phosphorus (2.5-4.6) mg/dL Magnesium (1.7-2.8) mg/dL 02/21/19 02/21/19 02/21/19 Range/Units 20:25 19:15 18:25 VBG pH (7.31-7.41) Ionized Calcium (1.15-1.33) mmol/L Sodium (135-145) mmol/L Potassium (3.5-5.0) mmol/L Chloride (101-111) mmol/L Carbon Dioxide (21-32) mmol/L Anion Gap (6-13) BUN (6-20) mg/dL Creatinine (0.4-1.0) mg/dL Estimated GFR (MDRD) (>89) Glucose (70-100) mg/dL POC Whole Bld Glucose 91 90 104 H (70 - 100) mg/dL Lactic Acid (0.5-2.2) mmol/L Calcium (8.5-10.3) mg/dL Phosphorus (2.5-4.6) mg/dL Magnesium (1.7-2.8) mg/dL 02/21/19 02/21/19 02/21/19 Range/Units 17:25 16:06 15:14 VBG pH (7.31-7.41) Ionized Calcium (1.15-1.33) mmol/L Sodium (135-145) mmol/L Potassium (3.5-5.0) mmol/L Chloride (101-111) mmol/L Carbon Dioxide (21-32) mmol/L Anion Gap (6-13) BUN (6-20) mg/dL Creatinine (0.4-1.0) mg/dL Estimated GFR (MDRD) (>89) Glucose (70-100) mg/dL POC Whole Bld Glucose 103 H 112 H 102 H (70 - 100) mg/dL Lactic Acid (0.5-2.2) mmol/L Calcium (8.5-10.3) mg/dL Phosphorus (2.5-4.6) mg/dL Magnesium (1.7-2.8) mg/dL 02/21/19 02/21/19 02/21/19 Range/Units 14:40 14:40 14:18 VBG pH (7.31-7.41) Ionized Calcium (1.15-1.33) mmol/L Sodium (135-145) mmol/L Potassium 3.8 (3.5-5.0) mmol/L Chloride (101-111) mmol/L Carbon Dioxide (21-32) mmol/L Anion Gap (6-13) BUN (6-20) mg/dL Creatinine (0.4-1.0) mg/dL Estimated GFR (MDRD) (>89) Glucose (70-100) mg/dL POC Whole Bld Glucose 118 H (70 - 100) mg/dL Lactic Acid 4.2 H* (0.5-2.2) mmol/L Calcium (8.5-10.3) mg/dL Phosphorus 1.9 L (2.5-4.6) mg/dL Magnesium 2.4 (1.7-2.8) mg/dL 02/21/19 02/21/19 02/21/19 Range/Units 13:10 12:06 10:18 VBG pH (7.31-7.41) Ionized Calcium (1.15-1.33) mmol/L Sodium (135-145) mmol/L Potassium (3.5-5.0) mmol/L Chloride (101-111) mmol/L Carbon Dioxide (21-32) mmol/L Anion Gap (6-13) BUN (6-20) mg/dL Creatinine (0.4-1.0) mg/dL Estimated GFR (MDRD) (>89) Glucose (70-100) mg/dL POC Whole Bld Glucose 125 H 140 H 147 H (70 - 100) mg/dL Lactic Acid (0.5-2.2) mmol/L Calcium (8.5-10.3) mg/dL Phosphorus (2.5-4.6) mg/dL Magnesium (1.7-2.8) mg/dL Assessment/Plan - Problem List (1) DKA (diabetic ketoacidoses) Impression: Cause in the past has been pump failure with elements of noncompliance. Since her CXR is abnormal also being treated for pneumonia. Plan: On the insulin drip, her electrolytes have started to normalize. Her anion gap was 28. By first it had come down to 13. 8/ am was 12. Glucose is in the 100s 02/21. Carbon dioxide, which used to be less than 6, is still very low at 10. Chloride was coming up to 121 and fluids of been adjusted. Lactic acid was 2.9 and admission. But it went up to 4.3. In the slot manager hours 02/21 she had come down to 1.8 but at 4 in the morning she was 5.6 and repeat is 5.4. We thought it was lab error but she is still has lactic acidosis that is severe. In the evening of 02/21 she came down to 2.7 We will continue to use insulin drip until her acidosis is resolved by CO2 level. I have started clear liquids but her nausea is severe. I hope that stopping the azithromycin will help her nausea. Once her C02 is ml, advance diet as tolerated and start lantus with SS (+) fixed dose of short acting insulin before meals. Qualifiers: Diabetes mellitus type: type 1 Diabetes mellitus complication detail: without coma Qualified Code(s): E10.10 - Type 1 diabetes mellitus with ketoacidosis without coma (2) Type 1 diabetes, uncontrolled, with nonproliferative retinopathy with macular edema Conclusion/Plan: Due to pump failure and noncompliance with use of her Lantus and short acting insulin when pump had failed. Long talk with her day of admission and another long talk with her mom/dad who flew in from [place] as well as . There are elements of marital discord. Concern for his career. Her concern for the children. Plan is for her to fly to [place] next week with mom/dad and kids. Mom will take care of kids and she will reconnect with Endocrine clinic there. (3) Electrolyte and fluid disorder Conclusion/Plan: Secondary to fluid shifts from her diabetes and uncontrolled sugars. Associated with lactic acidosis and hyperkalemia and acute kidney injury. Being monitored closely by nursing with electrolyte protocol. Potassium is been given appropriately as is calcium and magnesium and phosphorus as necessary. She is 10 liters positive overall today with 2300 cc out 02/20 and 2000 out 02/21. She is profoundly dehydrated when she came in with us. We will continue to give aggressive IV fluids and monitor her electrolytes. I am monitoring her C02 closely waiting for that normalize. Plan: Electrolyte protocol per ICU Monitor labs daily Aggressive IV fluid resuscitation as indicated above (4) Abnormal chest xray Conclusion/Plan: This patient does not have any antecedent review of systems indicating fever, cough, chills, chest congestion. But her white cell count is elevated to 25.6. She is not hypoxic. Not tachypneic. Day #3 rocephin and azithromycin. She has now reached 1500 mg of azithro, will stop that. Plan: Empiric antibiotic therapy for pneumonia in a patient is critically ill with DKA, metabolic derangement, and severe lactic acidosis (5) Metabolic encephalopathy resolved due to her DKA, dehydration. She has some psychosocial issues to work thru as well. Qualifiers: Qualified Code(s): E10.10 - Type 1 diabetes mellitus with ketoacidosis without coma
[2019-02-22] MEDS: CALCIUM CARBONATE CHEW 500 MG TABLET PO SCH ×2 (11:45→21:04)
[2019-02-22] MEDS: INSULIN REGULAR HUMAN 100 UNIT in SODIUM CHLORIDE 0.9% 100ML 99 ML IV SCH (19:42)
[2019-02-23] MEDS: SODIUM CHLORIDE 0.45% 1,000 ML IV SCH ×2 (00:12→13:47)
[2019-02-23] MEDS: DEXTROSE 5%-0.45% NACL 1,000 ML IV SCH ×3 (00:14→09:40)
[2019-02-23 05:32] LABS: BASOPHILS % (AUTO) 0.5 %; EOSINOPHILS % (AUTO) 0.5 %; LYMPHOCYTES # (AUTO) 1.9 10^3/uL (1.5-3.5); LYMPHOCYTES % (AUTO) 24.7 %; MEAN CORPUSCULAR HEMOGLOBIN 32.5 pg (27.0-31.0); MEAN CORPUSCULAR HGB CONC 32.6 g/dL (32.0-36.0); MEAN CORPUSCULAR VOLUME 99.7 fL (81.0-99.0); MEAN PLATELET VOLUME 9.8 fL (7.9-10.8); MONOCYTES # (AUTO) 0.9 10^3/uL (0.0-1.0); MONOCYTES % (AUTO) 11.8 %; NEUTROPHILS # (AUTO) 4.8 10^3/uL (1.5-6.6); PLT - PLATELET COUNT 165 10^3/uL (130-450); RED BLOOD COUNT 3.08 10^6/uL (4.20-5.40); RED CELL DISTRIBUTION WIDTH 14.5 % (12.0-15.0); WHITE BLOOD COUNT 7.8 x10^3/uL (4.8-10.8)
[2019-02-23 05:48] LABS: CALCIUM 7.7 mg/dL (8.5-10.3); MAGNESIUM 1.8 mg/dL (1.7-2.8); PHOSPHORUS 2.1 mg/dL (2.5-4.6)
[2019-02-23 05:49] LABS: VBG PH 7.36 (7.31-7.41)
[2019-02-23] MEDS: PANTOPRAZOLE 40 MG VIAL IVP SCH (06:31)
[2019-02-23] MEDS: INSULIN REGULAR HUMAN 100 UNIT in SODIUM CHLORIDE 0.9% 100ML 99 ML IV SCH (06:58)
[2019-02-23] MEDS: POTASSIUM CHLOR 20 MEQ/100 ML 20 MEQ/100 ML BAG IV SCH ×4 (07:07→11:48)
[2019-02-23 07:55] LABS: CALCIUM 7.6 mg/dL (8.5-10.3); CREATININE 0.7 mg/dL (0.4-1.0)
[2019-02-23] MEDS: INSULIN ASPART 300 UNIT/3 ML PEN SUBQ SCH ×5 (08:07→20:45)
[2019-02-23] MEDS: PRENATAL VITAMIN TABLET PO SCH (10:19)
[2019-02-23] MEDS: CALCIUM CARBONATE CHEW 500 MG TABLET PO SCH ×2 (10:19→20:44)
[2019-02-23] MEDS: POLYETHYLENE GLYCOL 3350 17 GM PACKET PO SCH (10:20)
[2019-02-23] MEDS: cefTRIAXone 1 GM in SODIUM CHLORIDE 0.9% MINIBAG 100 ML IV SCH (10:20)
[2019-02-23] MEDS: ENOXAPARIN 40 MG/0.4 ML SYRINGE SUBQ SCH ×2 (10:20→10:34)
[2019-02-23] MEDS: SODIUM CHLORIDE FLUSH 0.9% 10 ML SYRINGE IVP SCH ×2 (10:23→17:33)
[2019-02-23] MEDS ORDERED: POTASSIUM PHOSPHATE 15 MMOL in SODIUM CHLORIDE 0.9% 250 ML IV ONE (11:00)
--- NOTE | 2019-02-23 11:01 | PROVIDER PROGRESS NOTE ---
Objective - Vital Signs/Intake & Output Vital Signs: Vital Signs x48h Temp Pulse Resp BP BP Pulse Ox 02/23/19 10:00 95 15 110/69 100 02/23/19 09:00 93 15 97/60 02/23/19 08:00 36.8 C 93 14 123/81 H 100 02/23/19 07:00 85 16 116/68 02/23/19 06:00 90 16 116/64 02/23/19 05:00 37.0 C 86 15 117/75 98 02/23/19 04:00 87 15 119/71 Intake & Output: Intake & Output 02/20/19 02/21/19 02/22/19 02/23/19 23:59 23:59 23:59 23:59 Intake Total 5556.25 6810.891 5340.400 4471.05 Output Total 400 2375 5300 2200 Balance 5156.25 4435.891 40.400 2271.05 - Lab Results Fish Bones: 02/23/19 05:05 02/23/19 05:05 Other Labs: Lab Results x24hrs 02/23/19 02/23/19 02/23/19 Range/Units 08:15 07:51 07:27 WBC (4.8-10.8) x10^3/uL RBC (4.20-5.40) 10^6/uL Hgb (12.0-16.0) g/dL Hct (37.0-47.0) % MCV (81.0-99.0) fL MCH (27.0-31.0) pg MCHC (32.0-36.0) g/dL RDW (12.0-15.0) % Plt Count (130-450) 10^3/uL MPV (7.9-10.8) fL Neut # (Auto) (1.5-6.6) 10^3/uL Lymph # (Auto) (1.5-3.5) 10^3/uL Winn # (Auto) (0.0-1.0) 10^3/uL Eos # (Auto) (0.0-0.7) 10^3/uL Baso # (Auto) (0.0-0.1) 10^3/uL Absolute Nucleated RBC x10^3/uL Nucleated RBC % /100WBC VBG pH (7.31-7.41) Ionized Calcium (1.15-1.33) mmol/L Sodium (135-145) mmol/L Potassium (3.5-5.0) mmol/L Chloride (101-111) mmol/L Carbon Dioxide (21-32) mmol/L Anion Gap (6-13) BUN (6-20) mg/dL Creatinine (0.4-1.0) mg/dL Estimated GFR (MDRD) (>89) Glucose (70-100) mg/dL POC Whole Bld Glucose 118 H 69 L 62 L (70 - 100) mg/dL Calcium (8.5-10.3) mg/dL Phosphorus (2.5-4.6) mg/dL Magnesium (1.7-2.8) mg/dL 02/23/19 02/23/19 02/23/19 Range/Units 05:05 05:05 05:05 WBC 7.8 (4.8-10.8) x10^3/uL RBC 3.08 L (4.20-5.40) 10^6/uL Hgb 10.0 L (12.0-16.0) g/dL Hct 30.7 L (37.0-47.0) % MCV 99.7 H (81.0-99.0) fL MCH 32.5 H (27.0-31.0) pg MCHC 32.6 (32.0-36.0) g/dL RDW 14.5 (12.0-15.0) % Plt Count 165 (130-450) 10^3/uL MPV 9.8 (7.9-10.8) fL Neut # (Auto) 4.8 (1.5-6.6) 10^3/uL Lymph # (Auto) 1.9 (1.5-3.5) 10^3/uL Winn # (Auto) 0.9 (0.0-1.0) 10^3/uL Eos # (Auto) 0.0 (0.0-0.7) 10^3/uL Baso # (Auto) 0.0 (0.0-0.1) 10^3/uL Absolute Nucleated RBC 0.00 x10^3/uL Nucleated RBC % 0.0 /100WBC VBG pH 7.360 (7.31-7.41) Ionized Calcium 1.13 L (1.15-1.33) mmol/L Sodium 142 (135-145) mmol/L Potassium 2.9 L (3.5-5.0) mmol/L Chloride 114 H (101-111) mmol/L Carbon Dioxide 19 L (21-32) mmol/L Anion Gap 9.0 (6-13) BUN 5 L (6-20) mg/dL Creatinine 0.7 (0.4-1.0) mg/dL Estimated GFR (MDRD) 94 (>89) Glucose 75 (70-100) mg/dL POC Whole Bld Glucose (70 - 100) mg/dL Calcium 7.6 L (8.5-10.3) mg/dL Phosphorus (2.5-4.6) mg/dL Magnesium (1.7-2.8) mg/dL 02/23/19 02/23/19 02/22/19 Range/Units 05:05 00:52 20:58 WBC (4.8-10.8) x10^3/uL RBC (4.20-5.40) 10^6/uL Hgb (12.0-16.0) g/dL Hct (37.0-47.0) % MCV (81.0-99.0) fL MCH (27.0-31.0) pg MCHC (32.0-36.0) g/dL RDW (12.0-15.0) % Plt Count (130-450) 10^3/uL MPV (7.9-10.8) fL Neut # (Auto) (1.5-6.6) 10^3/uL Lymph # (Auto) (1.5-3.5) 10^3/uL Winn # (Auto) (0.0-1.0) 10^3/uL Eos # (Auto) (0.0-0.7) 10^3/uL Baso # (Auto) (0.0-0.1) 10^3/uL Absolute Nucleated RBC x10^3/uL Nucleated RBC % /100WBC VBG pH (7.31-7.41) Ionized Calcium YES (1.15-1.33) mmol/L Sodium (135-145) mmol/L Potassium 2.9 L (3.5-5.0) mmol/L Chloride (101-111) mmol/L Carbon Dioxide (21-32) mmol/L Anion Gap (6-13) BUN (6-20) mg/dL Creatinine (0.4-1.0) mg/dL Estimated GFR (MDRD) (>89) Glucose (70-100) mg/dL POC Whole Bld Glucose 86 103 H (70 - 100) mg/dL Calcium 7.7 L (8.5-10.3) mg/dL Phosphorus 2.1 L (2.5-4.6) mg/dL Magnesium 1.8 (1.7-2.8) mg/dL 02/22/19 02/22/19 02/22/19 Range/Units 16:35 14:50 13:35 WBC (4.8-10.8) x10^3/uL RBC (4.20-5.40) 10^6/uL Hgb (12.0-16.0) g/dL Hct (37.0-47.0) % MCV (81.0-99.0) fL MCH (27.0-31.0) pg MCHC (32.0-36.0) g/dL RDW (12.0-15.0) % Plt Count (130-450) 10^3/uL MPV (7.9-10.8) fL Neut # (Auto) (1.5-6.6) 10^3/uL Lymph # (Auto) (1.5-3.5) 10^3/uL Winn # (Auto) (0.0-1.0) 10^3/uL Eos # (Auto) (0.0-0.7) 10^3/uL Baso # (Auto) (0.0-0.1) 10^3/uL Absolute Nucleated RBC x10^3/uL Nucleated RBC % /100WBC VBG pH (7.31-7.41) Ionized Calcium (1.15-1.33) mmol/L Sodium (135-145) mmol/L Potassium (3.5-5.0) mmol/L Chloride (101-111) mmol/L Carbon Dioxide (21-32) mmol/L Anion Gap (6-13) BUN (6-20) mg/dL Creatinine (0.4-1.0) mg/dL Estimated GFR (MDRD) (>89) Glucose (70-100) mg/dL POC Whole Bld Glucose 114 H 85 93 (70 - 100) mg/dL Calcium (8.5-10.3) mg/dL Phosphorus (2.5-4.6) mg/dL Magnesium (1.7-2.8) mg/dL 02/22/19 Range/Units 11:23 WBC (4.8-10.8) x10^3/uL RBC (4.20-5.40) 10^6/uL Hgb (12.0-16.0) g/dL Hct (37.0-47.0) % MCV (81.0-99.0) fL MCH (27.0-31.0) pg MCHC (32.0-36.0) g/dL RDW (12.0-15.0) % Plt Count (130-450) 10^3/uL MPV (7.9-10.8) fL Neut # (Auto) (1.5-6.6) 10^3/uL Lymph # (Auto) (1.5-3.5) 10^3/uL Winn # (Auto) (0.0-1.0) 10^3/uL Eos # (Auto) (0.0-0.7) 10^3/uL Baso # (Auto) (0.0-0.1) 10^3/uL Absolute Nucleated RBC x10^3/uL Nucleated RBC % /100WBC VBG pH (7.31-7.41) Ionized Calcium (1.15-1.33) mmol/L Sodium (135-145) mmol/L Potassium (3.5-5.0) mmol/L Chloride (101-111) mmol/L Carbon Dioxide (21-32) mmol/L Anion Gap (6-13) BUN (6-20) mg/dL Creatinine (0.4-1.0) mg/dL Estimated GFR (MDRD) (>89) Glucose (70-100) mg/dL POC Whole Bld Glucose 120 H (70 - 100) mg/dL Calcium (8.5-10.3) mg/dL Phosphorus (2.5-4.6) mg/dL Magnesium (1.7-2.8) mg/dL Assessment/Plan - Problem List (1) DKA (diabetic ketoacidoses) Qualifiers: Qualified Code(s): E10.10 - Type 1 diabetes mellitus with ketoacidosis without coma
--- NOTE | 2019-02-23 11:04 | PROVIDER PROGRESS NOTE ---
Subjective - Prog Note Date Prog Note Date: 02/23/19 Prog Note Time: 11:02 - Subjective Pt reports feeling: Improved Subjective: She is up at the side of the bed. Slowly been getting up to urinate several times yesterday. She is off the insulin drip. Glucose dropped low this morning so we have stopped the drip. Encouraging her p.o. and managing her with short acting insulin before eating. She is still tired, lethargic. Psychomotor slowing. Less emotional lability. Current Medications - Current Medications Current Medications: Active Medications Acetaminophen (Tylenol) 650 mg PO Q4HR PRN PRN Reason: Pain 1 to 4 Calcium Carbonate/Glycine (Tums) 500 mg PO BID [facility] Last Admin: 02/23/19 10:19 Dose: 500 mg Enoxaparin Sodium (Lovenox) 40 mg SUBQ DAILY [facility] Last Admin: 02/23/19 10:34 Dose: Not Given Insulin Human Regular 100 unit (/ Sodium Chloride) 100 mls @ 6 mls/hr IV .[id number] [facility]; Protocol Last Titration: 02/23/19 07:39 Dose: 0 unit/hr, 0 mls/hr Ceftriaxone Sodium 1 gm/ (Sodium Chloride) 100 mls @ 200 mls/hr IV DAILY [facility] Last Admin: 02/23/19 10:20 Dose: 200 mls/hr Norepinephrine Bitartrate 8 mg (/ Dextrose) 250 mls @ 0 mls/hr IV .Q0M [facility]; Protocol Dextrose/Sodium Chloride (D5.45ns) 1,000 mls @ 125 mls/hr IV .Q8H [facility] Last Admin: 02/23/19 09:40 Dose: 125 mls/hr Sodium Chloride (Normal Saline 0.45%) 1,000 mls @ 75 mls/hr IV .[id number] [facility] Last Infusion: 02/23/19 10:23 Dose: 75 mls/hr Potassium Phosphate 15 mmol/ (Sodium Chloride) 255 mls @ 63 mls/hr IV ONCE ONE; Protocol Stop: 02/23/19 15:02 Insulin Aspart (Novolog) 1 - 9 unit SUBQ 0800,1200,1700,2100 [facility]; Protocol Last Admin: 02/23/19 08:07 Dose: Not Given Ondansetron HCl (Zofran Inj) 4 mg IVP Q6HR PRN PRN Reason: Nausea / Vomiting Last Admin: 02/21/19 09:24 Dose: 4 mg Ondansetron HCl (Zofran Odt) 4 mg TL Q6HR PRN PRN Reason: Nausea / Vomiting Pantoprazole Sodium (Protonix) 40 mg IVP QDAC [facility] Last Admin: 02/23/19 06:31 Dose: 40 mg Polyethylene Glycol (Miralax) 17 gm PO DAILY [facility] Last Admin: 02/23/19 10:20 Dose: Not Given Multivit/Folic Acid/Iron (Trinatal Rx 1) 1 tab PO DAILYWM [facility] Last Admin: 02/23/19 10:19 Dose: 1 tab Prochlorperazine Edisylate (Compazine Inj) 10 mg IVP Q4HR PRN PRN Reason: Nausea / Vomiting Sodium Chloride (Normal Saline Flush 0.9%) 10 ml IVP PRN PRN PRN Reason: NEEDED PER PROVIDER ORDERS Last Admin: 02/22/19 09:00 Dose: 10 ml Sodium Chloride (Normal Saline Flush 0.9%) 10 ml IVP 0100,0900,1700 [facility] Last Admin: 02/23/19 10:23 Dose: 30 ml Sodium Chloride (Normal Saline Flush 0.9%) 20 ml IVP PRN PRN PRN Reason: After Blood Draw Last Admin: 02/21/19 21:14 Dose: 20 ml Dorzolamide/Timolol Ophth Soln [Cosopt] 1 drops RIGHTEYE BID 04/03/17 Insulin Lispro [Humalog] 100 unit SQ DAILY 04/03/17 Objective - Vital Signs/Intake & Output Reviewed Vital Signs: Yes Vital Signs: Vital Signs Temp Pulse Resp BP BP Pulse Ox 02/23/19 10:00 95 15 110/69 100 02/23/19 09:00 93 15 97/60 02/23/19 08:00 36.8 C 93 14 123/81 H 100 Intake & Output: Intake & Output 02/20/19 02/21/19 02/22/19 02/23/19 23:59 23:59 23:59 23:59 Intake Total 5556.25 6810.891 5340.400 4471.05 Output Total 400 2375 5300 2200 Balance 5156.25 4435.891 40.400 2271.05 - Objective General Appearance: positive: No acute distress, Lethargic Eyes Bilateral: positive: PERRL, EOMI ENT: positive: Other (thick, dry tongue slowly recovering, dry cracked lips gone) Neck: positive: No JVD Respiratory: positive: No respiratory distress. negative: Wheezes, Rales, Rhonchi Cardiovascular: positive: Regular rate & rhythm. negative: Gallop/S4, Friction rub Abdomen: positive: Non-tender, No organomegaly, Nml bowel sounds, No distention Skin: positive: Warm, Dry Extremities: positive: Non-tender, No pedal edema, Other (overall moderate muscle wasting) Neurologic/Psychiatric: positive: Oriented x3, CN's nml (2-12), Motor nml, Sensation nml, Slurred/abnml speech (slight lethargy that may be from low glucose) - Lab Results Fish Bones: 02/23/19 05:05 02/23/19 05:05 Other Labs: Lab Results x24hrs 02/23/19 02/23/19 02/23/19 Range/Units 08:15 07:51 07:27 WBC (4.8-10.8) x10^3/uL RBC (4.20-5.40) 10^6/uL Hgb (12.0-16.0) g/dL Hct (37.0-47.0) % MCV (81.0-99.0) fL MCH (27.0-31.0) pg MCHC (32.0-36.0) g/dL RDW (12.0-15.0) % Plt Count (130-450) 10^3/uL MPV (7.9-10.8) fL Neut # (Auto) (1.5-6.6) 10^3/uL Lymph # (Auto) (1.5-3.5) 10^3/uL [place] # (Auto) (0.0-1.0) 10^3/uL Eos # (Auto) (0.0-0.7) 10^3/uL Baso # (Auto) (0.0-0.1) 10^3/uL Absolute Nucleated RBC x10^3/uL Nucleated RBC % /100WBC VBG pH (7.31-7.41) Ionized Calcium (1.15-1.33) mmol/L Sodium (135-145) mmol/L Potassium (3.5-5.0) mmol/L Chloride (101-111) mmol/L Carbon Dioxide (21-32) mmol/L Anion Gap (6-13) BUN (6-20) mg/dL Creatinine (0.4-1.0) mg/dL Estimated GFR (MDRD) (>89) Glucose (70-100) mg/dL POC Whole Bld Glucose 118 H 69 L 62 L (70 - 100) mg/dL Calcium (8.5-10.3) mg/dL Phosphorus (2.5-4.6) mg/dL Magnesium (1.7-2.8) mg/dL 02/23/19 02/23/19 02/23/19 Range/Units 05:05 05:05 05:05 WBC 7.8 (4.8-10.8) x10^3/uL RBC 3.08 L (4.20-5.40) 10^6/uL Hgb 10.0 L (12.0-16.0) g/dL Hct 30.7 L (37.0-47.0) % MCV 99.7 H (81.0-99.0) fL MCH 32.5 H (27.0-31.0) pg MCHC 32.6 (32.0-36.0) g/dL RDW 14.5 (12.0-15.0) % Plt Count 165 (130-450) 10^3/uL MPV 9.8 (7.9-10.8) fL Neut # (Auto) 4.8 (1.5-6.6) 10^3/uL Lymph # (Auto) 1.9 (1.5-3.5) 10^3/uL [place] # (Auto) 0.9 (0.0-1.0) 10^3/uL Eos # (Auto) 0.0 (0.0-0.7) 10^3/uL Baso # (Auto) 0.0 (0.0-0.1) 10^3/uL Absolute Nucleated RBC 0.00 x10^3/uL Nucleated RBC % 0.0 /100WBC VBG pH 7.360 (7.31-7.41) Ionized Calcium 1.13 L (1.15-1.33) mmol/L Sodium 142 (135-145) mmol/L Potassium 2.9 L (3.5-5.0) mmol/L Chloride 114 H (101-111) mmol/L Carbon Dioxide 19 L (21-32) mmol/L Anion Gap 9.0 (6-13) BUN 5 L (6-20) mg/dL Creatinine 0.7 (0.4-1.0) mg/dL Estimated GFR (MDRD) 94 (>89) Glucose 75 (70-100) mg/dL POC Whole Bld Glucose (70 - 100) mg/dL Calcium 7.6 L (8.5-10.3) mg/dL Phosphorus (2.5-4.6) mg/dL Magnesium (1.7-2.8) mg/dL 02/23/19 02/23/19 02/22/19 Range/Units 05:05 00:52 20:58 WBC (4.8-10.8) x10^3/uL RBC (4.20-5.40) 10^6/uL Hgb (12.0-16.0) g/dL Hct (37.0-47.0) % MCV (81.0-99.0) fL MCH (27.0-31.0) pg MCHC (32.0-36.0) g/dL RDW (12.0-15.0) % Plt Count (130-450) 10^3/uL MPV (7.9-10.8) fL Neut # (Auto) (1.5-6.6) 10^3/uL Lymph # (Auto) (1.5-3.5) 10^3/uL [place] # (Auto) (0.0-1.0) 10^3/uL Eos # (Auto) (0.0-0.7) 10^3/uL Baso # (Auto) (0.0-0.1) 10^3/uL Absolute Nucleated RBC x10^3/uL Nucleated RBC % /100WBC VBG pH (7.31-7.41) Ionized Calcium YES (1.15-1.33) mmol/L Sodium (135-145) mmol/L Potassium 2.9 L (3.5-5.0) mmol/L Chloride (101-111) mmol/L Carbon Dioxide (21-32) mmol/L Anion Gap (6-13) BUN (6-20) mg/dL Creatinine (0.4-1.0) mg/dL Estimated GFR (MDRD) (>89) Glucose (70-100) mg/dL POC Whole Bld Glucose 86 103 H (70 - 100) mg/dL Calcium 7.7 L (8.5-10.3) mg/dL Phosphorus 2.1 L (2.5-4.6) mg/dL Magnesium 1.8 (1.7-2.8) mg/dL 02/22/19 02/22/19 02/22/19 Range/Units 16:35 14:50 13:35 WBC (4.8-10.8) x10^3/uL RBC (4.20-5.40) 10^6/uL Hgb (12.0-16.0) g/dL Hct (37.0-47.0) % MCV (81.0-99.0) fL MCH (27.0-31.0) pg MCHC (32.0-36.0) g/dL RDW (12.0-15.0) % Plt Count (130-450) 10^3/uL MPV (7.9-10.8) fL Neut # (Auto) (1.5-6.6) 10^3/uL Lymph # (Auto) (1.5-3.5) 10^3/uL [place] # (Auto) (0.0-1.0) 10^3/uL Eos # (Auto) (0.0-0.7) 10^3/uL Baso # (Auto) (0.0-0.1) 10^3/uL Absolute Nucleated RBC x10^3/uL Nucleated RBC % /100WBC VBG pH (7.31-7.41) Ionized Calcium (1.15-1.33) mmol/L Sodium (135-145) mmol/L Potassium (3.5-5.0) mmol/L Chloride (101-111) mmol/L Carbon Dioxide (21-32) mmol/L Anion Gap (6-13) BUN (6-20) mg/dL Creatinine (0.4-1.0) mg/dL Estimated GFR (MDRD) (>89) Glucose (70-100) mg/dL POC Whole Bld Glucose 114 H 85 93 (70 - 100) mg/dL Calcium (8.5-10.3) mg/dL Phosphorus (2.5-4.6) mg/dL Magnesium (1.7-2.8) mg/dL 02/22/19 Range/Units 11:23 WBC (4.8-10.8) x10^3/uL RBC (4.20-5.40) 10^6/uL Hgb (12.0-16.0) g/dL Hct (37.0-47.0) % MCV (81.0-99.0) fL MCH (27.0-31.0) pg MCHC (32.0-36.0) g/dL RDW (12.0-15.0) % Plt Count (130-450) 10^3/uL MPV (7.9-10.8) fL Neut # (Auto) (1.5-6.6) 10^3/uL Lymph # (Auto) (1.5-3.5) 10^3/uL [place] # (Auto) (0.0-1.0) 10^3/uL Eos # (Auto) (0.0-0.7) 10^3/uL Baso # (Auto) (0.0-0.1) 10^3/uL Absolute Nucleated RBC x10^3/uL Nucleated RBC % /100WBC VBG pH (7.31-7.41) Ionized Calcium (1.15-1.33) mmol/L Sodium (135-145) mmol/L Potassium (3.5-5.0) mmol/L Chloride (101-111) mmol/L Carbon Dioxide (21-32) mmol/L Anion Gap (6-13) BUN (6-20) mg/dL Creatinine (0.4-1.0) mg/dL Estimated GFR (MDRD) (>89) Glucose (70-100) mg/dL POC Whole Bld Glucose 120 H (70 - 100) mg/dL Calcium (8.5-10.3) mg/dL Phosphorus (2.5-4.6) mg/dL Magnesium (1.7-2.8) mg/dL Assessment/Plan - Problem List (1) DKA (diabetic ketoacidoses) Impression: Cause in the past has been pump failure with elements of noncompliance. Since her CXR is abnormal also being treated for pneumonia. Plan: On the insulin drip, glucose and electrolytes normalized, anion gap started at 28 and normal by Her anion gap was 28 on admission and normalized. She had her lactic acid lag quite a bit and go up even with treatment, that has resolved. anion gap closed for 2 days now. Still with low C02 but that is 19 today and nml is 21 so she may be normal by tomorrow. I continued her insulin drip at 2 units until her acidosis was resolved by CO2 level but I have to stop it today bc of hypoglycemia. Started on clears 02/21 and had crackers/soup 02/22 and this am eating cereal and boiled egg, slowly. Since she is hypoglycemic, I will cover with only SS insulin today. Once she is eating a regular diet, will start lantus. Qualifiers: Diabetes mellitus type: type 1 Diabetes mellitus complication detail: without coma Qualified Code(s): E10.10 - Type 1 diabetes mellitus with ketoacidosis without coma (2) Type 1 diabetes, uncontrolled, with nonproliferative retinopathy with macular edema Conclusion/Plan: Due to pump failure and noncompliance with use of her Lantus and short acting insulin when pump had failed. Long talk with her day of admission and another long talk with her mom/dad who flew in from [place] as well as . There are elements of marital discord. Concern for his career. Her concern for the children. Plan is for her to fly to [place] next week with mom/dad and kids. Mom will take care of kids and she will reconnect with Endocrine clinic there. No change in paln. (3) Electrolyte and fluid disorder Conclusion/Plan: Secondary to fluid shifts from her diabetes and uncontrolled sugars. Associated with lactic acidosis and hyperkalemia and acute kidney injury. That has all resolved but she has hypokalemia this morning. Being monitored closely by nursing with electrolyte protocol. Potassium is been given appropriately as is calcium and magnesium and phosphorus as necessary. Plan: Electrolyte protocol per ICU Monitor labs daily Aggressive IV fluid resuscitation as indicated above can stop (4) Abnormal chest xray Conclusion/Plan: This patient does not have any antecedent review of systems indicating fever, cough, chills, chest congestion. But her white cell count is elevated to 25.6. She is not hypoxic. Not tachypneic. Day #4 rocephin and after 1500 mg of azithromycin completed 02/22 that was stopped. Plan: Empiric antibiotic therapy for pneumonia in a patient is critically ill with DKA, metabolic derangement, and severe lactic acidosis (5) Metabolic encephalopathy resolved due to her DKA, dehydration. She has some psychosocial issues to work thru as well. Qualifiers: Qualified Code(s): E10.10 - Type 1 diabetes mellitus with ketoacidosis without coma
[2019-02-23 11:16] LABS: MAGNESIUM 1.8 mg/dL (1.7-2.8); PHOSPHORUS 2.3 mg/dL (2.5-4.6)
[2019-02-23] MEDS ORDERED: INSULIN ASPART 300 UNIT/3 ML PEN SUBQ ONE (11:24)
[2019-02-23] MEDS ORDERED: INSULIN GLARGINE 300 UNIT/3 ML PEN SUBQ SCH (11:24)
[2019-02-23] MEDS: SODIUM CHLORIDE FLUSH 0.9% 10 ML SYRINGE IVP PRN (13:33)
[2019-02-23 14:26] LABS: MAGNESIUM 1.8 mg/dL (1.7-2.8); PHOSPHORUS 1.4 mg/dL (2.5-4.6)
[2019-02-24] MEDS: SODIUM CHLORIDE FLUSH 0.9% 10 ML SYRINGE IVP SCH ×4 (04:42→19:02)
[2019-02-24 04:52] LABS: BASOPHILS % (AUTO) 0.4 %; EOSINOPHILS # (AUTO) 0.1 10^3/uL (0.0-0.7); EOSINOPHILS % (AUTO) 1.8 %; HGB - HEMOGLOBIN 9.9 g/dL (12.0-16.0); LYMPHOCYTES # (AUTO) 2.3 10^3/uL (1.5-3.5); LYMPHOCYTES % (AUTO) 29.5 %; MEAN CORPUSCULAR HEMOGLOBIN 31.9 pg (27.0-31.0); MEAN CORPUSCULAR VOLUME 99.7 fL (81.0-99.0); MEAN PLATELET VOLUME 9.8 fL (7.9-10.8); MONOCYTES # (AUTO) 0.8 10^3/uL (0.0-1.0); MONOCYTES % (AUTO) 10.4 %; NEUTROPHILS # (AUTO) 4.4 10^3/uL (1.5-6.6); NEUTROPHILS % (AUTO) 57.6 %; PLT - PLATELET COUNT 156 10^3/uL (130-450); RED CELL DISTRIBUTION WIDTH 14.6 % (12.0-15.0); WHITE BLOOD COUNT 7.6 x10^3/uL (4.8-10.8)
[2019-02-24 05:06] LABS: BUN - BLOOD UREA NITROGEN 9 mg/dL (6-20); CALCIUM 8.1 mg/dL (8.5-10.3); CARBON DIOXIDE - CO2 21 mmol/L (21-32); CHLORIDE 113 mmol/L (101-111); CREATININE 0.6 mg/dL (0.4-1.0); GFR - MDRD 112 (>89); GLUCOSE 90 mg/dL (70-100); MAGNESIUM 1.9 mg/dL (1.7-2.8); PHOSPHORUS 2.7 mg/dL (2.5-4.6); SODIUM 141 mmol/L (135-145)
[2019-02-24 05:31] LABS: VBG PH 7.387 (7.31-7.41)
[2019-02-24] MEDS: PANTOPRAZOLE 40 MG VIAL IVP SCH (06:20)
[2019-02-24 07:28] LABS: ABSOLUTE RETICS # AUTO 0.044 10^6/uL (0.020-0.110); RED BLOOD COUNT 3.11 10^6/uL (4.20-5.40)
[2019-02-24 07:50] LABS: % IRON SATURATION 24 % (20-50); IRON 54 ug/dL (28-170); TOTAL IRON BINDING CAPACITY 228 ug/dL (250-450); TRANSFERRIN 163 mg/dL (192-382)
[2019-02-24 08:01] LABS: FERRITIN 81.5 ng/mL (11.0-306.8)
[2019-02-24] MEDS: INSULIN GLARGINE 300 UNIT/3 ML PEN SUBQ SCH (09:22)
[2019-02-24] MEDS: INSULIN ASPART 300 UNIT/3 ML PEN SUBQ SCH ×5 (09:31→20:49)
[2019-02-24] MEDS: CALCIUM CARBONATE CHEW 500 MG TABLET PO SCH ×2 (09:33→20:49)
[2019-02-24] MEDS: ENOXAPARIN 40 MG/0.4 ML SYRINGE SUBQ SCH (09:33)
[2019-02-24] MEDS: POLYETHYLENE GLYCOL 3350 17 GM PACKET PO SCH (09:33)
[2019-02-24] MEDS: PRENATAL VITAMIN TABLET PO SCH (09:33)
[2019-02-24] MEDS: cefTRIAXone 1 GM in SODIUM CHLORIDE 0.9% MINIBAG 100 ML IV SCH (09:35)
--- NOTE | 2019-02-24 09:55 | PROVIDER PROGRESS NOTE ---
Subjective - Prog Note Date Prog Note Date: 02/24/19 Prog Note Time: 10:09 - Subjective Pt reports feeling: Improved Subjective: she is up in bed, eating breakfast. tired but anxious to go home. wants central line out and wants to use vials of lantus and novolog not pens. Current Medications - Current Medications Current Medications: My Active Orders 02/23/19 17:00 Insulin Aspart [NovoLOG] 8 unit SUBQ TIDWM 02/24/19 08:27 Central Line Discontinuation [RC] .ONCE 02/24/19 08:29 Miscellaenous Nursing Order [RC] QSHIFT 02/24/19 09:00 Insulin Glargine [Lantus Solostar] 25 unit SUBQ DAILY 02/24/19 10:01 Petrolatum White [Vaseline] 5 gm TOP PRN PRN 02/25/19 05:00 MAGNESIUM [CHEM] DAILYLAB PHOSPHORUS [CHEM] DAILYLAB POTASSIUM [CHEM] DAILYLAB Objective - Vital Signs/Intake & Output Reviewed Vital Signs: Yes Vital Signs: Vital Signs x48h Temp Pulse Resp BP Pulse Ox 02/24/19 09:00 88 13 128/77 02/24/19 08:00 36.6 C 89 14 144/83 H 100 02/24/19 07:00 93 12 02/24/19 06:00 90 10 L 115/69 02/24/19 05:00 94 12 114/68 02/24/19 04:00 36.8 C 91 14 120/76 98 02/24/19 03:00 89 12 132/77 H 02/24/19 02:00 87 14 116/71 Intake & Output: Intake & Output 02/21/19 02/22/19 02/23/19 02/24/19 23:59 23:59 23:59 23:59 Intake Total 6810.891 5340.400 7303.550 180 Output Total 7134 5300 4600 800 Balance 4435.891 40.400 2678.550 -620 - Objective General Appearance: positive: No acute distress, Alert Eyes Bilateral: positive: PERRL ENT: positive: Pharynx nml, No signs of dehydration Neck: positive: No JVD Respiratory: positive: Chest non-tender. negative: Wheezes, Rales, Rhonchi Cardiovascular: positive: Regular rate & rhythm. negative: Gallop/S4, Friction rub Abdomen: positive: Non-tender, No organomegaly, Nml bowel sounds, No distention Skin: positive: Warm, Dry Extremities: positive: Full ROM, No pedal edema Neurologic/Psychiatric: positive: Oriented x3, CN's nml (2-12), Motor nml, Weakness - Lab Results Fish Bones: 02/24/19 04:40 02/24/19 04:40 Other Labs: Lab Results x24hrs 02/24/19 02/24/19 02/24/19 Range/Units 08:05 04:40 04:40 WBC (4.8-10.8) x10^3/uL RBC (4.20-5.40) 10^6/uL Hgb (12.0-16.0) g/dL Hct (37.0-47.0) % MCV (81.0-99.0) fL MCH (27.0-31.0) pg MCHC (32.0-36.0) g/dL RDW (12.0-15.0) % Plt Count (130-450) 10^3/uL MPV (7.9-10.8) fL Reticulocyte % (Auto) (0.5-2.3) % Neut # (Auto) (1.5-6.6) 10^3/uL Lymph # (Auto) (1.5-3.5) 10^3/uL [place] # (Auto) (0.0-1.0) 10^3/uL Eos # (Auto) (0.0-0.7) 10^3/uL Baso # (Auto) (0.0-0.1) 10^3/uL Absolute Nucleated RBC x10^3/uL Nucleated RBC % /100WBC Absolute Retic (0.020-0.110) 10^6/uL VBG pH (7.31-7.41) Ionized Calcium (1.15-1.33) mmol/L Sodium (135-145) mmol/L Potassium (3.5-5.0) mmol/L Chloride (101-111) mmol/L Carbon Dioxide (21-32) mmol/L Anion Gap (6-13) BUN (6-20) mg/dL Creatinine (0.4-1.0) mg/dL Estimated GFR (MDRD) (>89) Glucose (70-100) mg/dL POC Whole Bld Glucose 98 (70 - 100) mg/dL Calcium (8.5-10.3) mg/dL Phosphorus (2.5-4.6) mg/dL Magnesium (1.7-2.8) mg/dL Iron (28-170) ug/dL TIBC (250-450) ug/dL % Saturation (20-50) % Transferrin (192-382) mg/dL Ferritin 81.5 (11.0-306.8) ng/mL Lactate Dehydrogenase 144 (91-225) IU/L Vitamin B12 240 (180-914) pg/mL 02/24/19 02/24/19 02/24/19 Range/Units 04:40 04:40 04:40 WBC (4.8-10.8) x10^3/uL RBC 3.11 L (4.20-5.40) 10^6/uL Hgb (12.0-16.0) g/dL Hct (37.0-47.0) % MCV (81.0-99.0) fL MCH (27.0-31.0) pg MCHC (32.0-36.0) g/dL RDW (12.0-15.0) % Plt Count (130-450) 10^3/uL MPV (7.9-10.8) fL Reticulocyte % (Auto) 1.42 (0.5-2.3) % Neut # (Auto) (1.5-6.6) 10^3/uL Lymph # (Auto) (1.5-3.5) 10^3/uL [place] # (Auto) (0.0-1.0) 10^3/uL Eos # (Auto) (0.0-0.7) 10^3/uL Baso # (Auto) (0.0-0.1) 10^3/uL Absolute Nucleated RBC x10^3/uL Nucleated RBC % /100WBC Absolute Retic 0.044 (0.020-0.110) 10^6/uL VBG pH 7.387 (7.31-7.41) Ionized Calcium 1.18 (1.15-1.33) mmol/L Sodium (135-145) mmol/L Potassium (3.5-5.0) mmol/L Chloride (101-111) mmol/L Carbon Dioxide (21-32) mmol/L Anion Gap (6-13) BUN (6-20) mg/dL Creatinine (0.4-1.0) mg/dL Estimated GFR (MDRD) (>89) Glucose (70-100) mg/dL POC Whole Bld Glucose (70 - 100) mg/dL Calcium (8.5-10.3) mg/dL Phosphorus (2.5-4.6) mg/dL Magnesium (1.7-2.8) mg/dL Iron 54 (28-170) ug/dL TIBC 228 L (250-450) ug/dL % Saturation 24 (20-50) % Transferrin 163 L (192-382) mg/dL Ferritin (11.0-306.8) ng/mL Lactate Dehydrogenase (91-225) IU/L Vitamin B12 (180-914) pg/mL 02/24/19 02/24/19 02/23/19 Range/Units 04:40 04:40 20:44 WBC 7.6 (4.8-10.8) x10^3/uL RBC 3.10 L (4.20-5.40) 10^6/uL Hgb 9.9 L (12.0-16.0) g/dL Hct 30.9 L (37.0-47.0) % MCV 99.7 H (81.0-99.0) fL MCH 31.9 H (27.0-31.0) pg MCHC 32.0 (32.0-36.0) g/dL RDW 14.6 (12.0-15.0) % Plt Count 156 (130-450) 10^3/uL MPV 9.8 (7.9-10.8) fL Reticulocyte % (Auto) (0.5-2.3) % Neut # (Auto) 4.4 (1.5-6.6) 10^3/uL Lymph # (Auto) 2.3 (1.5-3.5) 10^3/uL [place] # (Auto) 0.8 (0.0-1.0) 10^3/uL Eos # (Auto) 0.1 (0.0-0.7) 10^3/uL Baso # (Auto) 0.0 (0.0-0.1) 10^3/uL Absolute Nucleated RBC 0.00 x10^3/uL Nucleated RBC % 0.0 /100WBC Absolute Retic (0.020-0.110) 10^6/uL VBG pH (7.31-7.41) Ionized Calcium YES (1.15-1.33) mmol/L Sodium 141 (135-145) mmol/L Potassium 3.8 (3.5-5.0) mmol/L Chloride 113 H (101-111) mmol/L Carbon Dioxide 21 (21-32) mmol/L Anion Gap 7.0 (6-13) BUN 9 (6-20) mg/dL Creatinine 0.6 (0.4-1.0) mg/dL Estimated GFR (MDRD) 112 (>89) Glucose 90 (70-100) mg/dL POC Whole Bld Glucose 120 H (70 - 100) mg/dL Calcium 8.1 L (8.5-10.3) mg/dL Phosphorus 2.7 (2.5-4.6) mg/dL Magnesium 1.9 (1.7-2.8) mg/dL Iron (28-170) ug/dL TIBC (250-450) ug/dL % Saturation (20-50) % Transferrin (192-382) mg/dL Ferritin (11.0-306.8) ng/mL Lactate Dehydrogenase (91-225) IU/L Vitamin B12 (180-914) pg/mL 02/23/19 02/23/19 02/23/19 Range/Units 16:44 13:41 13:41 WBC (4.8-10.8) x10^3/uL RBC (4.20-5.40) 10^6/uL Hgb (12.0-16.0) g/dL Hct (37.0-47.0) % MCV (81.0-99.0) fL MCH (27.0-31.0) pg MCHC (32.0-36.0) g/dL RDW (12.0-15.0) % Plt Count (130-450) 10^3/uL MPV (7.9-10.8) fL Reticulocyte % (Auto) (0.5-2.3) % Neut # (Auto) (1.5-6.6) 10^3/uL Lymph # (Auto) (1.5-3.5) 10^3/uL [place] # (Auto) (0.0-1.0) 10^3/uL Eos # (Auto) (0.0-0.7) 10^3/uL Baso # (Auto) (0.0-0.1) 10^3/uL Absolute Nucleated RBC x10^3/uL Nucleated RBC % /100WBC Absolute Retic (0.020-0.110) 10^6/uL VBG pH (7.31-7.41) Ionized Calcium (1.15-1.33) mmol/L Sodium (135-145) mmol/L Potassium 4.5 (3.5-5.0) mmol/L Chloride (101-111) mmol/L Carbon Dioxide (21-32) mmol/L Anion Gap (6-13) BUN (6-20) mg/dL Creatinine (0.4-1.0) mg/dL Estimated GFR (MDRD) (>89) Glucose (70-100) mg/dL POC Whole Bld Glucose 277 H (70 - 100) mg/dL Calcium (8.5-10.3) mg/dL Phosphorus 1.4 L (2.5-4.6) mg/dL Magnesium 1.8 (1.7-2.8) mg/dL Iron (28-170) ug/dL TIBC (250-450) ug/dL % Saturation (20-50) % Transferrin (192-382) mg/dL Ferritin (11.0-306.8) ng/mL Lactate Dehydrogenase (91-225) IU/L Vitamin B12 (180-914) pg/mL 02/23/19 02/23/19 Range/Units 11:12 10:52 WBC (4.8-10.8) x10^3/uL RBC (4.20-5.40) 10^6/uL Hgb (12.0-16.0) g/dL Hct (37.0-47.0) % MCV (81.0-99.0) fL MCH (27.0-31.0) pg MCHC (32.0-36.0) g/dL RDW (12.0-15.0) % Plt Count (130-450) 10^3/uL MPV (7.9-10.8) fL Reticulocyte % (Auto) (0.5-2.3) % Neut # (Auto) (1.5-6.6) 10^3/uL Lymph # (Auto) (1.5-3.5) 10^3/uL [place] # (Auto) (0.0-1.0) 10^3/uL Eos # (Auto) (0.0-0.7) 10^3/uL Baso # (Auto) (0.0-0.1) 10^3/uL Absolute Nucleated RBC x10^3/uL Nucleated RBC % /100WBC Absolute Retic (0.020-0.110) 10^6/uL VBG pH (7.31-7.41) Ionized Calcium (1.15-1.33) mmol/L Sodium (135-145) mmol/L Potassium 4.8 (3.5-5.0) mmol/L Chloride (101-111) mmol/L Carbon Dioxide (21-32) mmol/L Anion Gap (6-13) BUN (6-20) mg/dL Creatinine (0.4-1.0) mg/dL Estimated GFR (MDRD) (>89) Glucose (70-100) mg/dL POC Whole Bld Glucose 422 H (70 - 100) mg/dL Calcium (8.5-10.3) mg/dL Phosphorus 2.3 L (2.5-4.6) mg/dL Magnesium 1.8 (1.7-2.8) mg/dL Iron (28-170) ug/dL TIBC (250-450) ug/dL % Saturation (20-50) % Transferrin (192-382) mg/dL Ferritin (11.0-306.8) ng/mL Lactate Dehydrogenase (91-225) IU/L Vitamin B12 (180-914) pg/mL ABX Reporting Has patient been on IV antibiotics over the past 48 hours?: Yes Assessment/Plan - Problem List (1) DKA (diabetic ketoacidoses) Impression: Cause in the past has been pump failure with elements of noncompliance. Since her CXR is abnormal also being treated for pneumonia. Plan: On the insulin drip, glucose and electrolytes normalized, anion gap started at 28 and normal by 02/20 and continues to drop even further to 7 today. She had her lactic acid lag quite a bit and go up even with treatment, that has resolved. started at 2.9, peaked at 5.6 a day later, and was 2.7 on February 21. Will recheck tomorrow. Still had low C02 but that is up to 19 yesterday but normal today at 21. I continued her insulin drip at 2 units until her acidosis was resolved by CO2 level but I had to stop it 02/23 bc of hypoglycemia. Started on clears 02/21 and had crackers/soup 02/22 and by 02/23 am eating cereal and boiled egg, slowly. I thought to use only SS insulin but yesterday bumped up to 400's with breakfast and no insulin so she is lantus and SS novolog. She doesn't use the pens and only uses vials with syringes. So I have asked pharmacy to please provide us with insulin vials, insulin syringes. I would like her to give herself her own insulin all day today, calculating her carbs, and if her glucose stays stable she may be able to go home by tomorrow morning. She wants central line out so that will be dc'd now. Qualifiers: Diabetes mellitus type: type 1 Diabetes mellitus complication detail: without coma Qualified Code(s): E10.10 - Type 1 diabetes mellitus with ketoacidosis without coma (2) Type 1 diabetes, uncontrolled, with nonproliferative retinopathy with macular edema Conclusion/Plan: Due to pump failure and noncompliance with use of her Lantus and short acting insulin when pump had failed. Long talk with her day of admission and another long talk with her mom/dad who flew in from [place] as well as . There are elements of marital discord. Concern for his career. Her concern for the children. Plan is for her to fly to [place] next week with mom/dad and kids. Mom will take care of kids and she will reconnect with Endocrine clinic there. No change in plan. (3) Electrolyte and fluid disorder Conclusion/Plan: Secondary to fluid shifts from her diabetes and uncontrolled sugars. Associated with lactic acidosis and hyperkalemia and acute kidney injury. Potassium and magnesium and calcium monitored and supplemented with electrolyte protocol. She has been 11,689 liters positive for this admisison. That's how far behind she was w dehdration and DKA. IVF stopped yesterday with good po intake. Plan: Continue electrolyte protocol per ICU Monitor labs daily (4) Abnormal chest xray Conclusion/Plan: This patient does not have any antecedent review of systems indicating fever, cough, chills, chest congestion. But her white cell count is elevated to 25.6. She is not hypoxic. Not tachypneic. Day #5 rocephin and after 1500 mg of azithromycin completed 02/22 that was stopped. Plan: Empiric antibiotic therapy for pneumonia in a patient is critically ill with DKA, metabolic derangement, and severe lactic acidosis. Not really clear if she had pneumonia so will stop abx today. (5) Metabolic encephalopathy resolved due to her DKA, dehydration. She has some psychosocial issues to work thru as well. Qualifiers: Qualified Code(s): E10.10 - Type 1 diabetes mellitus with ketoacidosis without coma Qualifiers: Qualified Code(s): E10.10 - Type 1 diabetes mellitus with ketoacidosis without coma
[2019-02-24] MEDS ORDERED: PETROLATUM WHITE 5 GM PACKET TOP PRN (10:01)
[2019-02-24] MEDS: SODIUM CHLORIDE FLUSH 0.9% 10 ML SYRINGE IVP PRN (10:14)
[2019-02-24] MEDS: INSULIN ASPART 100 UNIT/1 ML 10 ML MDV SUBQ SCH ×2 (13:39→18:57)
[2019-02-24] MEDS: DEXTROSE 5%-0.9% NACL 1,000 ML IV SCH (17:00)
[2019-02-25] MEDS: DEXTROSE 5%-0.9% NACL 1,000 ML IV SCH (04:10)
[2019-02-25] MEDS: SODIUM CHLORIDE FLUSH 0.9% 10 ML SYRINGE IVP SCH ×2 (04:10→08:38)
[2019-02-25 05:57] LABS: BUN - BLOOD UREA NITROGEN 12 mg/dL (6-20); CALCIUM 8.5 mg/dL (8.5-10.3); CARBON DIOXIDE - CO2 25 mmol/L (21-32); CHLORIDE 109 mmol/L (101-111); CREATININE 0.7 mg/dL (0.4-1.0); GFR - MDRD 94 (>89); GLUCOSE 128 mg/dL (70-100); SODIUM 141 mmol/L (135-145)
[2019-02-25 06:02] LABS: MAGNESIUM 1.8 mg/dL (1.7-2.8); PHOSPHORUS 3.9 mg/dL (2.5-4.6)
[2019-02-25] MEDS ORDERED: PANTOPRAZOLE 40 MG TABLET PO SCH (07:00)
[2019-02-25] MEDS: CALCIUM CARBONATE CHEW 500 MG TABLET PO SCH (08:28)
[2019-02-25] MEDS: PRENATAL VITAMIN TABLET PO SCH (08:28)
[2019-02-25] MEDS: INSULIN GLARGINE 300 UNIT/3 ML PEN SUBQ SCH (08:29)
[2019-02-25] MEDS: INSULIN ASPART 300 UNIT/3 ML PEN SUBQ SCH ×2 (08:37→12:14)
[2019-02-25] MEDS: INSULIN ASPART 100 UNIT/1 ML 10 ML MDV SUBQ SCH ×2 (08:37→12:14)
[2019-02-25] MEDS: POLYETHYLENE GLYCOL 3350 17 GM PACKET PO SCH (08:38)
[2019-02-25] MEDS: ENOXAPARIN 40 MG/0.4 ML SYRINGE SUBQ SCH (08:38)
--- NOTE | 2019-02-25 08:53 | Discharge Plan ---
Discharge Plan Problem Reviewed?: Yes Disposition: Home, Self Care Condition: Stable Prescriptions: Vitamin [Trinatal Rx 1] 1 tab PO DAILYWM #30 tablet Diet: Diabetic Activity Restrictions: Activity as Tolerated Shower Restrictions: No Driving Restrictions: No Instruction Topics: DKA Prevent Ch Health Concerns: Admitted with DKA and dehydration since Insulin pump was not on ad due to probable infection. Plan of Treatment: Restart subcutaneous injections of Lantus Insulin daily, monitor with fingerstick glucose checks and use short-acting sliding scale Insulin coverage. Care Goals: Improve diabetic management, avoid DKA and dehydration. The course of antibiotics was already finished while you were here. You need to be on a vitamin supplement daily, due to low blood levels, which was newly prescribed for you. Assessment: The patient agrees with the plan. No Smoking: If you smoke, Please STOP! Call for help.
[2019-02-25 13:44] VITALS: BP 128/74
--- NOTE | 2019-02-27 15:56 | DISCHARGE SUMMARY ---
"Discharge Summary Admit Date: 02/20/19 Discharge Date: 02/25/19 Discharging Provider: Dr Nydia Luna Primary Care Provider: SILVIA Núñez Code Status: Attempt Resuscitation Condition at Discharge: Stable Discharge Disposition: 01 Home, Self Care - DIAGNOSES Admission Diagnoses: 1) DKA 2) Type 1 DM, previously on Insulin pump 3) Non-compliance with DM treatment 4) Electrolyte and fluid imbalance 5) R eye blindness Discharge Diagnoses with Status of Each Condition: See below - HPI History of Present Illness: From the H&P of Dr Lyon: She is a diabetic type I since the age of 8. This is her fifth admission in her lifetime for DKA and dehydration. She is not from [facility]. 2 admissions have been for pump failure before she even came to live here. She was admitted March 2017 to our facility for nausea and dry heaves with diarrhea. No associated DKA then. She was then admitted September 2018, again for pump failure. Resulting in DKA. Even as we were getting ready to discharge her, she turned on her pump, and glucose started to rise throughout the few hours we were watching her. We found her to have a kink in her pump catheter. She has been seen at the [facility] [place]. Yoli Reeders work with her in September to make sure that her insurance companies were communicating with the [employer] sales representative rural [employer]. She needed a supplier who could build both insurances so the patient would have no [id number] cost for her Dexcom CGM. They did attempt to call her back to see if everything was working okay on September 28. There is no phone call back. Her states that there is been more more tenseness in their marriage. She says that she has to focus on the kids and as such she neglects herself. He has to constantly remind her to check her sugars to then give herself insulin. She will actually forget for days at a time. She has not been on the pump for the last few days because there is a constant error message. She cannot be sure she is been getting her insulin. In addition to the rationale for not taking care of herself is that she has to focus on the kids, she also does not want to tell her things. She feels that she is holding him back in his career in the [employer]. So if she were to complain, become ill, it would then affect his career. She has refused outreach from the [employer] support [place] their command structure do recognize she and he are struggling. She and the children were actually getting ready to fly to [place] in a week. They were going to spend some time in their home state. He was going to stay home. He is due to be in [place], [place] in August and then due to be deployed next summer. The patient now returns because she has been short of breath for the last 2 days. Gradually coming on. There is no cough, no fever, no rhinorrhea. She does not have a history of asthma or heart disease. In addition to the shortness of breath she started getting sleepier, slurred speech. She seemed to be making nonsensical statements this am. It seemed to him that she was tired, and not feeling well last night, but stable. This am, not making sense and he can't understand what she's saying other than she keeps on asking for water. As such her brought her to the emergency room. She was afebrile with a heart rate of 92, blood pressure 92/53. 100% saturating. She is able to follow commands but is just confused with a Nery Coma Scale of 13. Potassium was 6.6. BUN 25, creatinine 1.6. pH on the venous side is 6.735. White cell count is 25.6. MCV is 114. She has moderate serum ketones. Lactic acid is 2.9. She is now placed in the ICU for DKA with metabolic derangement, metabolic encephalopathy. History - CONSULTS | PROCEDURES Procedures: Right IJ line placed by Anesthesia - HOSPITAL COURSE Hospital Course: (1) DKA (diabetic ketoacidoses) The cause in the past has been pump failure with elements of noncompliance and possible infection (she was also treated for pneumonia while here). She was started on an Insulin drip, her glucose and electrolytes normalized. The anion gap started at 28, then normalized and continued to drop even further to 7. Her lactic acid improvement lagged quite a bit and it went up even with treatment, then resolved (started at 2.9, peaked at 5.6 a day later, and was 2.7 on February 21). She required aggressive iv fluid administration. She needed anti-emetics and was started on clear liquids on 02/21 and had crackers/soup 02/22 and by 02/23 am was eating cereal and boiled egg. She doesn't use the Insulin Pens and only uses vials with syringes. So I have ordered Lantus Insulin vials, not Lantus Solostar Pens at discharge. She has syringes, needles and equipment for fingerstick glucose checks. (2) Hypotension The initial BPs were 80-90/40-60. She was clinically very dehydrated. She was 11 liters positive during this admission. That's how far behind she was w dehdration and DKA. (3) Metabolic encephalopathy This was felt to be due to her DKA, dehydration. She has some psychosocial issues with family to work thru as well. (4) Type 1 diabetes, uncontrolled Due to pump failure and noncompliance with use of her Lantus and short acting insulin when pump had failed. Hospitalist had a long talk with her day of admission and another long talk with her mom/dad who flew in from [place] as well as . There are elements of marital discord. Concern for his career. Her concern for the children. Plan is for her to fly to [place] next week with mom/dad and kids. Mom will take care of kids and she will reconnect with Endocrine clinic there. (5) Electrolyte and fluid disorder Secondary to fluid shifts from her diabetes and uncontrolled sugars, associated with lactic acidosis and hyperkalemia and acute kidney injury. Potassium and magnesium and calcium monitored and supplemented with electrolyte protocol. She was 11 liters positive during this admission. (6) Abnormal chest xray The CXR was read as having bilateral infiltrates. This patient did not have any antecedent review of systems indicating fever, cough, chills, chest congestion. She was not hypoxic or tachypneic. But her white cell count was elevated to 25.6 and lactic acid was abnormal. She, therefore, received 5 days of empiric iv Rocephin and also Zithromax, which was stopped after 1500 mg was completed. (7) Right eye blindness She reported to me that this happened after 2 eye surgeries, which were remote. (8) Normocytic anemia during this hospitalization. The lowest Hgb was 9.9, with MCV of 99.7. Labs were done and there is no B12 or iron deficiency. Will attribute it to chronic illness with poor self care. If she does not go back to normal Hgb levels, she would need consult with Heme since there are metamyelocytes and myelocytes on her RBC smear. She was discharged on a multi-vitamin () daily. - ALLERGIES Allergies/Adverse Reactions: Allergies Allergy/AdvReac Type Severity Reaction Status Date / Time No Known Drug Allergies Allergy Verified 09/21/18 13:27 - MEDICATIONS Home Medications: Ambulatory Orders Medication Instructions Recorded Confirmed Dorzolamide/Timolol Ophth Soln 1 drops RIGHTEYE BID 04/03/17 02/20/19 [Cosopt] Vitamin [Trinatal Rx 1] 1 tab PO DAILYWM #30 tablet 02/25/19 - PHYSICAL EXAM AT DISCHARGE General Appearance: positive: No acute distress, Other (Pale appearing.) Eyes Bilateral: positive: Other (R eye veering rightward and legally blind in R eye.) ENT: positive: Dry mucous membranes Neck: positive: Nml inspection, Thyroid nml, No JVD Respiratory: positive: No respiratory distress, Breath sounds nml Cardiovascular: positive: Regular rate & rhythm, No murmur Skin: positive: Pallor Extremities: positive: Non-tender, No pedal edema - LABS Result Diagrams: 02/24/19 04:40 02/25/19 05:10 - DIAGNOSTIC IMAGING Diagnostic Imaging Results: Final report reviewed - FOLLOW UP Follow Up: She will be seeing her [employer] in [place] - TIME SPENT Time Spent in Discharge (Minutes): 45"
== END 2019-02-25 13:45 | disposition home or self-care (01) | DRG 919 ==
LOC: ED 09:15 → UNDOADMIN 11:53 → ICU 11:53 → UNDODISIN 02-25 13:45
PROVIDERS: ADMIT Specialist; ATTEND Internal Medicine
PROC: 02HV33Z Insertion of Infusion Device into Superior Vena Cava, Percutaneous Approach (ICD-10-PCS; principal; 2019-02-20)
DX: T85.694A Other mechanical complication of insulin pump, initial encounter (principal); E10.10 Type 1 diabetes mellitus with ketoacidosis without coma; G93.41 Metabolic encephalopathy; J18.9 Pneumonia, unspecified organism; N17.9 Acute kidney failure, unspecified; E86.0 Dehydration; H66.003 Acute suppurative otitis media without spontaneous rupture of ear drum, bilateral; I95.89 Other hypotension; T38.3X6A Underdosing of insulin and oral hypoglycemic [antidiabetic] drugs, initial encounter; Z91.128 Patient's intentional underdosing of medication regimen for other reason; Y92.009 Unspecified place in unspecified non-institutional (private) residence as the place of occurrence of the external cause; E87.5 Hyperkalemia; E10.649 Type 1 diabetes mellitus with hypoglycemia without coma; E87.6 Hypokalemia; D64.9 Anemia, unspecified; E10.621 Type 1 diabetes mellitus with foot ulcer; L97.521 Non-pressure chronic ulcer of other part of left foot limited to breakdown of skin; H54.40 Blindness, one eye, unspecified eye; F32.9 Major depressive disorder, single episode, unspecified; R22.0 Localized swelling, mass and lump, head; R11.0 Nausea; E10.3219 Type 1 diabetes mellitus with mild nonproliferative diabetic retinopathy with macular edema, unspecified eye; Z96.41 Presence of insulin pump (external) (internal); Z63.0 Problems in relationship with spouse or partner; Z87.440 Personal history of urinary (tract) infections; Z98.818 Other dental procedure status
CPT/HCPCS: 36415; 71045; 80048; 80053; 80306; 81001; 81025; 82009; 82310; 82330; 82607; 82728; 82746; 82803; 83036; 83540; 83605; 83615; 83690; 83735; 84100; 84132; 84443; 84466; 85025; 85044; 87150; 93005; 96361; 96365; 99285; A9270; J1650; J1815; J7040; 81003; 82947; 87086